=== PATIENT | male | born 1975 | race Caucasian/White ===

== ENCOUNTER 2023-05-24 12:23 | Outpatient (OUT) | payer OTHER, SELFPAY ==
[2023-05-24 12:41] LABS: Hemoglobin 17.6 g/dL (14.0-18.0)
--- NOTE | 2023-05-24 13:16 | RT_ITS ---
[facility] Test Date: 2023-05-24 Pat Name: NATALY WILD Department: Room: - Gender: Male Disc Inspector: Latoya Spencer RRT : 1975 Requested By: Dandy Reich Order Number: [id number] Reading MD: Dandy Reich Interpretive Statements Pulmonary function testing was completed according to ATS criteria. Findings were considered accurate and reproducible. Both pre- and post-bronchodilator values utilized for spirometry. Spirometry (based on pre-bronchodilator values): -FEV1/FVC: Normal @ 74% -FEV1: Mildly reduced @ 77% -FVC: Low normal @ 81% -CNY09-66%: Reduced @ 66% -There is no significant bronchodilator response. Lung volumes by plethysmography: -RV: Increased @ 144% -TLC: Normal @ 103% Diffusion capacity: -DLCO: Normal @ 98% when corrected for Hb 17.6g/dL Flow-volume loop: -Mixed mild restriction with mild obstruction Prior PFT 02/22/2022: -No significant change in spirometry (FEV1 78%, FVC 83%) -RV increased from 93%, little change in TLC from 97% -No significant change in DLCO 94% Impressions: -Technically normal spirometry which trends towards mild-moderate obstruction without a bronchodilator response. Increased RV suggests air trapping. Normal DLCO. Midly increased Hb suggests polycythemia. No real significant change in PFT when compared to last year. Overall study suggests asthma with loss of bronchodilator response or asthma-COPD overlap. Clinical correlation required. Electronically Signed On 05-25-2023 7:03:42 EDT by Dandy Reich
[2023-05-24] MEDS: ALBUTEROL SULFATE 2.5 MG/3 ML VIAL NEB IH (13:46)
== END 2023-05-24 12:24 | disposition home or self-care (01) ==
LOC: CARD 12:26
PROVIDERS: PCP Family Medicine; Visit Provider Internal Medicine
DX: J45.50 Severe persistent asthma, uncomplicated (principal)
CPT/HCPCS: 36415; 85018; 94060; 94726; 94729

== ENCOUNTER 2023-09-13 00:24 | Emergency (ER) | payer OTHER, SELFPAY ==
[2023-09-13 00:55] VITALS: BP 182/120; PULSE 70; TEMP 36.8; O2SAT 96; BMI 33.0
--- NOTE | 2023-09-13 01:06 | ED.EAR1 ---
HPI - Ear Problem General Chief complaint: Ear Stated complaint: R EAR PAIN Time Seen by Provider: 09/13/23 00:50 Source: patient Mode of arrival: walk-in Limitations: no limitations History of Present Illness HPI Narrative: Foot male presents for right ear pain. He has had it for 2 days. No trauma or drainage. He does not complain of a sore throat or left ear pain but he does complain of a tooth ache intermittently in the right upper dentition. The pain is moderate. Related Data Previous Rx's ?Medication ?Instructions ?Recorded [id number] 3.3 4 drp otic (ear) TID #10 mL 09/13/23 mg-3 mg-10 mg-0.5 mg/mL ear drops,susp (Cortisporin-TC) penicillin V potassium 250 mg 250 mg PO QID 10 days #40 tabs 09/13/23 tablet Allergies Allergy/AdvReac Type Severity Reaction Status Date / Time Sulfa (Sulfonamide Allergy Intermediate Hives Verified 09/13/23 01:00 Antibiotics) Review of Systems ROS Narrative A ten point review of systems is negative except as noted above. Exam Narrative Exam Narrative: Nurses note and vital signs reviewed and patient is not hypoxic. General: The patient appears well and in no apparent distress. Patient is resting comfortably on cart. Skin: Warm, dry, no pallor noted. There is no rash noted. Head: Normocephalic, atraumatic Eye: Normal conjunctiva, no drainage Ears, Nose, Mouth, and Throat: oral mucosa is moist. Nares patent. Dental caries is noted in the right upper dentition. Left TM and external canal are normal. The right TM is normal but the right external canal has some erythema and slight swelling. Movement of the auricle causes discomfort. No cervical adenopathy. Cardiovascular: Regular Rate and Rhythm Respiratory: Patient is in no distress, no accessory muscle use, lungs are clear to auscultation, no wheezing, rales or rhonchi Back: non-tender GI: Soft and nontender Musculoskeletal: The patient has no evidence of calf tenderness, no pitting edema, symmetrical pulses noted bilaterally Neurological: A&O, normal speech Psychiatric: Cooperative Constitutional Vital Signs, click to edit/add: Last Vital Signs Temp 98.2 F 09/13/23 00:55 Pulse 70 09/13/23 00:55 Resp 18 09/13/23 00:55 BP 182/120 H 09/13/23 00:55 Pulse Ox 96 09/13/23 00:55 O2 Del Method Room Air 09/13/23 00:55 Course Vital Signs Vital signs: Vital Signs Temperature 98.2 F 09/13/23 00:55 Pulse Rate 70 09/13/23 00:55 Respiratory Rate 18 09/13/23 00:55 Blood Pressure 182/120 H 09/13/23 00:55 Pulse Oximetry 96 09/13/23 00:55 Oxygen Delivery Method Room Air 09/13/23 00:55 Temperature 98.2 F 09/13/23 00:55 Pulse Rate 70 09/13/23 00:55 Respiratory Rate 18 09/13/23 00:55 Blood Pressure 182/120 H 09/13/23 00:55 Pulse Oximetry 96 09/13/23 00:55 Oxygen Delivery Method Room Air 09/13/23 00:55 Medical Decision Making MDM Narrative Medical decision making narrative: My clinical impression is that he has otitis externa. He is placed on Cortisporin for that issue but he is also been having a tooth ache so he is placed on penicillin for that. He was also noted to have an elevated blood pressure but he has not taken his blood pressure medicine in more than a day. He has it at home and he is going to take it when he gets home. Treatment diagnosis and follow-up were discussed with the patient. Differential Diagnosis Differential Diagnosis: Otitis media, otitis externa Discharge Plan Discharge Stand Alone Forms: Portal Instructions Chief Complaint: Ear Clinical Impression: Otitis externa, Odontalgia Patient Disposition: Home, Self-Care Time of Disposition Decision: 01:04 Condition: Good Mode of Transportation: Private Vehicle Prescriptions / Home Meds: New penicillin V potassium 250 mg tablet 250 mg PO QID 10 Days Qty: 40 0RF Cortisporin-TC 3.3-3-10-0.5 mg/mL drops,suspension 4 drp otic (ear) TID Qty: 10 0RF Print Language: Greenlandic Instructions: Swimmer's Ear (ED), Toothache (ED) Referrals: LEEANNE ALEJANDRO [Primary Care Provider] - 1 week
[2023-09-13] MEDS: PENICILLIN V POTASSIUM 250 MG TABLET 500 MG PO (01:12)
[2023-09-13 01:15] VITALS: BP 178/116; PULSE 63; O2SAT 97
== END 2023-09-13 01:15 | disposition home or self-care (01) ==
PROVIDERS: Emergency Provider Emergency Medicine; PCP Family Medicine
DX: H60.91 Unspecified otitis externa, right ear (principal); K08.89 Other specified disorders of teeth and supporting structures
CPT/HCPCS: 99283

== ENCOUNTER 2023-11-03 17:24 | Emergency (ER) | payer OTHER, SELFPAY ==
[2023-11-03] VITALS (29 sets, daily range): BP systolic 146–199; BP diastolic 93–118; PULSE 72–93; TEMP 37; O2SAT 98; BMI 36.2
--- OUTSIDE RECORDS SUMMARY | 2023-11-03 17:34 | XMS_ITS | CCD ---
Author Organization [facility] Care Team Providers Care Network Controller Name Role Phone HILLARY ., DR JOSEPHINE Copeland Primary Care Unavailable SAMSA ., DURGA Admitting Unavailable SAMSA ., DURGA Attending Unavailable SAMSA ., DURGA Consulting Unavailable THORNTON ., DR JOSEPHINE Copeland Primary Care Unavailable HAY ., DR RICE Admitting Unavailable HAY ., DR RICE Attending Unavailable HAY ., DR RICE Consulting Unavailable THORNTON ., DR JOSEPHINE Copeland Primary Care Unavailable SAMSA ., DURGA Admitting Unavailable SAMSA ., DURGA Attending Unavailable SAMSA ., DURGA Consulting Unavailable THORNTON ., DR JOSEPHINE Copeland Admitting Unavailable THORNTON ., DR JOSEPHINE Copeland Attending Unavailable THORNTON ., DR JOSEPHINE Copeland Primary Care Unavailable THORNTON ., DR JOSEPHINE Copeland Admitting Unavailable THORNTON ., DR JOSEPHINE Copeland Attending Unavailable THORNTON ., DR JOSEPHINE Copeland Consulting Unavailable THORNTON ., DR JOSEPHINE Copeland Primary Care Unavailable Akil Reeves. Primary Care Physician Akil Reeves. Attending Unavailable Leandro, Akil E. Attending Unavailable Leandro, Akil E. Attending Unavailable Leandro, Akil E. Attending Unavailable Leandro, Akil E. Admitting Unavailable Ross, Akil E. Attending Unavailable Leandro, Akil E. Admitting Unavailable Ross, Akil E. Attending Unavailable Leandro, Akil E. Admitting Unavailable Ross, Akil E. Admitting Unavailable Ross, Akil E. Attending Unavailable Leandro, Akil E. Admitting Unavailable Ross, Akil E. Attending Unavailable Leandro, Akil E. Attending Unavailable Leandro, Akil E. Attending Unavailable Leandro, Akil E. Attending Unavailable Leandro, Akil E. Attending Unavailable Leandro, Akil E. Attending Unavailable Leandro, Akil E. Attending Unavailable Leandro, Akil E. Attending Unavailable Leandro, Akil E. Attending Unavailable Leandro, Akil E. Attending Unavailable Akil Reeves Attending Unavailable MD Akil Reeves Attending Unavailable MD Akil Reeves Admitting Unavailable MD Akil Reeves Attending Unavailable MD Akil Reeves Admitting Unavailable MD Akil Reeves Attending Unavailable Akil Reeves Attending Unavailable Akil Reeves Admitting Unavailable Chris Iraheta Attending Unavailab Chris Jane Admitting Unavailab Josephine Vicente Primary Care Unavailable Allergies Allergy Classification Reported Allergen(s) Allergy Type Date of Onset Reaction(s) Facility (3 sources) Escitalopram; Translations: [Lexapro] Drug Allergy 7 [facility] Repository (1 source) montelukast Drug Allergy [facility] Repository (2 sources) Sucralfate Drug Allergy 3 [facility] Repository (2 sources) thyrotropin augie Drug Allergy [facility] Repository (5 sources) Escitalopram; Translations: [escitalopram] Drug Allergy Unknown (qualifier value) [facility] Medications Current Medications Medication Drug Class(es) Dates Sig (Normalized) Sig (Original) albuterol 0.83 mg/ml inhalation solution (5 sources) beta2-Adrenergic Agonist Start: 06-25-2022 take 2.5 mg by inhalation every four hours albuterol 0.083% Inh Cecille 3 mL 2.5 mg, 3 mL, NEB, q4hr, Refill(s) 0 Start Date: 06/25/22 Status: Ordered allopurinol 100 mg oral tablet (4 sources) Xanthine Oxidase Inhibitor Start: 08-22-2023 take 1 tablet by mouth twice daily allopurinol 100 mg Tab See Instructions, TAKE ONE TABLET BY MOUTH TWICE A DAY, # 180 tab(s), Refills(s) 0, Pharmacy: [facility], 171.1, cm, 07/14/23 7:18:00 EDT, Height/Length Dosing, 110.5, kg, 07/14/23 7:18:00 EDT, Weight Dosing Start Date: 08/22/23 Status: Ordered Start: 04-26-2023 take 1 tablet by nighat twice daily allopurinol 100 mg Tab See Instructions, TAKE ONE TABLET BY MOUTH TWICE A DAY, # 180 tab(s), Refills(s) 0, Pharmacy: [facility], 171, cm, 02/21/23 6:51:00 EST, Height/Length Dosing, 114.1, kg, 02/21/23 6:51:00 EST, Weight Dosing Start Date: 04/26/23 Status: Ordered Start: 12-23-2022 take 1 tablet by nighat th twice daily allopurinol 100 mg Tab 100 mg = 1 tab(s), Oral, BID, # 180 tab(s), Refills(s) 0, Pharmacy: [facility], 175.5, cm, 12/23/22 7:40:00 EST, Height/Length Dosing, 112.2, kg, 12/23/22 7:40:00 EST, Weight Dosing Start Date: 12/23/22 Status: Ordered amLODIPine 10 mg oral tablet (5 sources) Dihydropyridine Calcium Channel Fredrick Start: 08-22-2023 take 1 tablet by mouth once daily amLODIPine 10 mg Tab 10 mg = 1 tab(s), Oral, Daily, # 30 tab(s), Refills(s) 6, Pharmacy: [facility], 171.1, cm, 07/14/23 7:18:00 EDT, Height/Length Dosing, 110.5, kg, 07/14/23 7:18:00 EDT, Weight Dosing Start Date: 08/22/23 Status: Ordered Start: 01-20-2023 take 1 tablet by nighat th once daily amLODIPine 10 mg Tab See Instructions, TAKE ONE TABLET BY MOUTH ONCE DAILY, # 30 EA, Refills(s) 5, Pharmacy: [facility], 175.3, cm, 01/06/23 7:42:00 EST, Height/Length Dosing, 112.7, kg, 01/06/23 7:42:00 EST, Weight Dosing Start Date: 01/20/23 Status: Ordered Start: 06-25-2022 take 1 tablet by nighat th once daily amLODIPine 10 mg Tab 10 mg = 1 tab(s), Oral, Daily, Refills(s) 0 Start Date: 06/25/22 Status: Ordered aspirin 81 mg delayed release oral tablet (1 source) Platelet Aggregation Inhibitor, Nonsteroidal Anti-inflammatory Drug Start: 06-25-2022 take 1 tablet by mouth once daily aspirin 81 mg Oral EC Tab 81 mg = 1 tab(s), Oral, Daily, Refills(s) 0 Start Date: 06/25/22 Status: Ordered 1 ml benralizumab 30 mg/ml auto-injector (5 sources) Interleukin-5 Receptor alpha-directed Cytolytic Antibody Start: 08-05-2022 Fasenra Pen 30 mg/mL subcutaneous solution 30 mg, SubCutaneous, q4wk, Refills(s) 0 Start Date: 08/05/22 Status: Ordered budesonide 0.25 mg/ml inhalation suspension (3 sources) Corticosteroid Start: 12-23-2022 colchicine 0.6 mg oral tablet (2 sources) Start: 05-18-2023 take 1 tablet by mouth every hour as needed for pain, then take 1 tablet by mouth every hour as needed for pain colchicine 0.6 mg Tab 0.6 mg = 1 tab(s), Oral, q1hr, PRN for gout pain, at the first sign of a gout flare followed by 0.6 mg one hour later, # 3 tab(s), Refills(s) 0, Pharmacy: [facility], 171, cm, 05/18/23 9:36:00 EDT, Height/Length Dosing, 112.9, kg, 05/18/23 9:36:00 EDT, Weight Dosing Start Date: 05/18/23 Status: Ordered Dosokap oral tablet (1 source) Start: 02-21-2023 take 1 tablet by mouth once daily Dosokap oral tablet 1 tab(s), Oral, Daily, 90 tab(s), Refill(s) 0, [facility], 171, cm, 02/21/23 6:51:00 EST, Height/Length Dosing, 114.1, kg, 02/21/23 6:51:00 EST, Weight Dosing Start Date: 02/21/23 Status: Ordered DULoxetine 40 mg delayed release oral capsule (5 sources) Serotonin and Norepinephrine Reuptake Inhibitor Start: 06-25-2022 take 1 capsule by mouth once daily DULoxetine 40 mg oral delayed release capsule 40 mg = 1 cap(s), Oral, Daily, Refills(s) 0 Start Date: 06/25/22 Status: Ordered hydroCHLOROthiazide 25 mg oral tablet (4 sources) Thiazide Diuretic Start: 05-23-2023 take 1 tablet by mouth once daily hydrochlorothiazide 25 mg Tab 25 mg = 1 tab(s), Oral, Daily, # 90 tab(s), Refills(s) 1, Pharmacy: [facility], 171, cm, 05/18/23 9:36:00 EDT, Height/Length Dosing, 112.9, kg, 05/18/23 9:36:00 EDT, Weight Dosing Start Date: 05/23/23 Status: Ordered Start: 11-30-2022 take 1 tablet by nighat once daily hydrochlorothiazide 25 mg Tab 25 mg = 1 tab(s), Oral, Daily, # 90 tab(s), Refills(s) 1, Pharmacy: [facility], 175.5, cm, 09/09/22 8:29:00 EDT, Height/Length Dosing, 113.4, kg, 09/09/22 8:29:00 EDT, Weight Dosing Start Date: 11/30/22 Status: Ordered lamoTRIgine 100 mg oral tablet (5 sources) Mood Stabilizer, Anti-epileptic Agent Start: 08-05-2022 take 1 tablet by mouth once daily at bedtime Lamictal 100 mg Tab 100 mg = 1 tab(s), Oral, Daily, at bedtime, Refills(s) 0 Start Date: 08/05/22 Status: Ordered levothyroxine sodium 0.1 mg oral tablet (2 sources) l-Thyroxine Start: 09-29-2023 take 1 tablet by mouth once daily levothyroxine 100 mcg (0.1 mg) Tab See Instructions, TAKE 1 TABLET BY MOUTH EVERY DAY, # 90 tab(s), Refills(s) 0, Pharmacy: [facility]/pharmacy #[id number], 171.1, cm, 09/29/23 7:04:00 EDT, Height/Length Dosing, 111.2, kg, 09/29/23 7:04:00 EDT, Weight Dosing Start Date: 09/29/23 Status: Ordered Start: 02-21-2023 take 1 tablet by nighat once daily levothyroxine 75 mcg (0.075 mg) Tab 75 mcg = 1 tab(s), Oral, Daily, # 90 tab(s), Refills(s) 0, [facility], 171, cm, 02/21/23 6:51:00 EST, Height/Length Dosing, 114.1, kg, 02/21/23 6:51:00 EST, Weight Dosing Start Date: 02/21/23 Status: Ordered losartan potassium 100 mg oral tablet (5 sources) Angiotensin 2 Receptor Fredrick Start: 04-26-2023 take 1 tablet by mouth once daily losartan 100 mg Tab See Instructions, TAKE ONE TABLET BY MOUTH ONCE DAILY, # 90 tab(s), Refills(s) 1, Pharmacy: [facility], 171, cm, 02/21/23 6:51:00 EST, Height/Length Dosing, 114.1, kg, 02/21/23 6:51:00 EST, Weight Dosing Start Date: 04/26/23 Status: Ordered Start: 12-24-2022 take 1 tablet by nighat th once daily losartan 100 mg Tab See Instructions, TAKE ONE TABLET BY MOUTH ONCE DAILY, # 30 EA, Refills(s) 2, Pharmacy: [facility], 175.5, cm, 12/23/22 7:40:00 EST, Height/Length Dosing, 112.2, kg, 12/23/22 7:40:00 EST, Weight Dosing Start Date: 12/24/22 Status: Ordered Start: 08-05-2022 take 1 tablet by nighat once daily losartan 100 mg Tab 100 mg = 1 tab(s), Oral, Daily, # 90 tab(s), Refills(s) 0, Pharmacy: [facility], 175.3, cm, 08/05/22 8:09:00 EDT, Height/Length Dosing, 110.9, kg, 08/05/22 8:09:00 EDT, Weight Dosing Start Date: 08/05/22 Status: Ordered 24 hr metoprolol succinate 25 mg extended release oral tablet (4 sources) beta-Adrenergic Fredrick Start: 06-13-2023 take 1 tablet by mouth once daily metoprolol 25 mg ER Tab 25 mg = 1 tab(s), Oral, Daily, # 90 tab(s), Refills(s) 4, Pharmacy: [facility], 171, cm, 05/18/23 9:36:00 EDT, Height/Length Dosing, 112.9, kg, 05/18/23 9:36:00 EDT, Weight Dosing Start Date: 06/13/23 Status: Ordered Start: 12-23-2022 take 1 tablet by [facility] once daily metoprolol 25 mg ER Tab 25 mg = 1 tab(s), Oral, Daily, # 90 tab(s), Refills(s) 0, Pharmacy: [facility], 175.5, cm, 12/23/22 7:40:00 EST, Height/Length Dosing, 112.2, kg, 12/23/22 7:40:00 EST, Weight Dosing Start Date: 12/23/22 Status: Ordered omeprazole 40 mg delayed release oral capsule (5 sources) Proton Pump Inhibitor Start: 05-23-2023 take 1 capsule by mouth once daily omeprazole 40 mg Cap-DR See Instructions, TAKE ONE CAPSULE BY MOUTH ONCE DAILY, # 90 EA, Refills(s) 1, Pharmacy: [facility], 171, cm, 05/18/23 9:36:00 EDT, Height/Length Dosing, 112.9, kg, 05/18/23 9:36:00 EDT, Weight Dosing Start Date: 05/23/23 Status: Ordered Start: 11-30-2022 take 1 capsule by [facility] once daily omeprazole 40 mg Cap-DR See Instructions, TAKE ONE CAPSULE BY MOUTH ONCE DAILY, # 90 EA, Refills(s) 1, Pharmacy: [facility], 175.5, cm, 09/09/22 8:29:00 EDT, Height/Length Dosing, 113.4, kg, 09/09/22 8:29:00 EDT, Weight Dosing Start Date: 11/30/22 Status: Ordered Start: 08-05-2022 take 1 capsule by [facility] once daily omeprazole 40 mg Cap-DR 40 mg = 1 cap(s), Oral, Daily, # 30 cap(s), Refills(s) 0, Pharmacy: [facility], 175.3, cm, 08/05/22 8:09:00 EDT, Height/Length Dosing, 110.9, kg, 08/05/22 8:09:00 EDT, Weight Dosing Start Date: 08/05/22 Status: Ordered Symbicort 160/4.5 inhalation aerosol with adapter (5 sources) Start: 08-05-2022 take 2 puff(s) by mouth twice daily Symbicort 160/4.5 inhalation aerosol with adapter 2 puff(s), Inhalation, BID, Refill(s) 0, rinse mouth after use Start Date: 08/05/22 Status: Ordered Syringes (4 sources) Start: 08-12-2023 Syringes Syrin ges, See Instructions, 3 EA, 3, 3ml syringes 23g x 1 inch needles use with testosterone IM injections q4wk, [facility]/pharmacy #[id number], Supply, 171.1, cm, 07/14/23 7:18:00 EDT, Height/Length Dosing, 110.5, kg, 07/14/23 7:18:00 EDT, Weight Dosing Start Date: 08/12/23 Status: Ordered Start: 06-30-2023 Syringes Syrin ges, See Instructions, 3 EA, 3, 3ml syringes 23g x 1 inch needles use with testosterone IM injections q4wk, [facility]/pharmacy #[id number], Supply, 171, cm, 05/18/23 9:36:00 EDT, Height/Length Dosing, 112.9, kg, 05/18/23 9:36:00 EDT, Weight Dosing Start Date: 06/30/23 Status: Ordered Start: 09-13-2022 Syringes Syrin ges, See Instructions, 3 EA, 3, 3ml syringes 23g x 1 inch needles use with testosterone IM injections q4wk, [facility], Supply, 175.5, cm, 09/09/22 8:29:00 EDT, Height/Length Dosing, 113.4, kg, 09/09/22 8:29:00 EDT, Weight Dosing Start Date: 09/13/22 Status: Ordered testosterone cypionate 200 mg/mL IM Cecille (5 sources) Start: 08-16-2023 inject 200 mg by intramuscular injection every other week testosterone cypionate 200 mg/mL IM Cecille 200 mg = 1 mL, IntraMuscular, q2wk, # 3 mL, Refills(s) 0, [id number], 171.1, cm, 07/14/23 7:18:00 EDT, Height/Length Dosing, 110.5, kg, 07/14/23 7:18:00 EDT, Weight Dosing Start Date: 08/16/23 Status: Ordered Start: 08-12-2023 inject 200 mg by int ramuscular injection every other week testosterone cypionate 200 mg/mL IM Cecille 200 mg = 1 mL, IntraMuscular, q2wk, # 3 mL, Refills(s) 0, Pharmacy: [facility]/pharmacy #[id number], 171.1, cm, 07/14/23 7:18:00 EDT, Height/Length Dosing, 110.5, kg, 07/14/23 7:18:00 EDT, Weight Dosing Start Date: 08/12/23 Status: Ordered Start: 06-30-2023 inject 200 mg by int ramuscular injection every other week testosterone cypionate 200 mg/mL IM Cecille 200 mg = 1 mL, IntraMuscular, q2wk, # 3 mL, Refills(s) 0, Pharmacy: [facility]/pharmacy #[id number], 171, cm, 05/18/23 9:36:00 EDT, Height/Length Dosing, 112.9, kg, 05/18/23 9:36:00 EDT, Weight Dosing Start Date: 06/30/23 Status: Ordered Start: 02-10-2023 inject 200 mg by int ramuscular injection every other week testosterone cypionate 200 mg/mL IM Cecille 200 mg = 1 mL, IntraMuscular, q2wk, # 3 mL, Refills(s) 0, Pharmacy: [facility], 175, cm, 02/10/23 7:36:00 EST, Height/Length Dosing, 112.9, kg, 02/10/23 7:36:00 EST, Weight Dosing Start Date: 02/10/23 Status: Ordered 60 actuat tiotropium 0.94562 mg/actuat inhalation spray (5 sources) Anticholinergic Start: 08-05-2022 Spiriva Respim at 1.25 mcg/inh inhalation aerosol 2 puff(s), Inhalation, Daily, Refill(s) 0 Start Date: 08/05/22 Status: Ordered topiramate 100 mg oral tablet (5 sources) Start: 06-25-2022 take 1 tablet by mouth at bedtime topiramate 100 mg Tab 100 mg = 1 tab(s), Oral, Bedtime, Refills(s) 0 Start Date: 06/25/22 Status: Ordered Ventolin HFA 90 mcg/inh Aerosol-Adpt (5 sources) Start: 06-25-2022 take 2 puff(s) by inhalation every four hours Ventolin HFA 90 mcg/inh Aerosol-Adpt 2 puff(s), Inhalation, q4hr, Refill(s) 0 Start Date: 06/25/22 Status: Ordered Problems Active Problems Problem Classification Problem Date Documented Date Episodic/Chronic Asthma (10 sources) Unspecified asthma, uncomplicated; Translations: [Severe persistent asthma, uncomplicated] Onset: 02-22-2022 Chronic Diabetes mellitus without complication (4 sources) Hyperglycemia 12-23-2022 Episodic Diseases of white blood cells (2 sources) Hereditary eosinophilia 05-23-2023 Chronic Disorders of lipid metabolism (5 sources) Mixed hyperlipidemia 08-05-2022 Chronic Esophageal disorders (16 sources) Gastro-esophageal reflux disease without esophagitis; Translations: [Rich's esophagus] Onset: 03-17-2022 06-25-2022 Chronic Essential hypertension (8 sources) Essential (primary) hypertension; Translations: [Essential hypertension] Onset: 03-17-2022 08-05-2022 Chronic Gout and other crystal arthropathies (6 sources) Gout, unspecified; Translations: [Gout] Onset: 03-17-2022 08-05-2022 Chronic Headache; including migraine (5 sources) Migraine without aura, not refractory 08-05-2022 Chronic Hepatitis (5 sources) Nonalcoholic steatohepatitis 06-25-2022 Chronic Mood disorders (5 sources) Bipolar I disorder 08-05-2022 Chronic Mood disorders (1 source) Mood disorders; Translations: [DEPRESSION UNSPECIFIED] Onset: 03-17-2022 Nutritional deficiencies (5 sources) Vitamin D deficiency 06-25-2022 Chronic Osteoarthritis (5 sources) Arthritis 06-25-2022 Chronic Other endocrine disorders (5 sources) Male hypogonadism 06-25-2022 Chronic Other liver diseases (4 sources) Enzyme level - finding 12-23-2022 Episodic Other nutritional; endocrine; and metabolic disorders (1 source) Obesity, unspecified; Translations: [OBESITY UNSPECIFIED] Onset: 02-23-2022 Chronic Other nutritional; endocrine; and metabolic disorders (1 source) Body mass index (BMI) 33.0-33.9, adult; Translations: [BODY MASS INDEX BMI 33.0-33.9 ADULT] Onset: 02-23-2022 Chronic Other skin disorders (1 source) Skin tag 09-29-2023 Episodic Other upper respiratory disease (5 sources) Allergic rhinitis 06-25-2022 Chronic Residual codes; unclassified (4 sources) Obstructive sleep apnea (adult) (pediatric); Translations: [OBSTRUCTIVE SLEEP APNEA] Onset: 02-17-2022 Chronic Residual codes; unclassified (5 sources) Obstructive sleep apnea syndrome 06-25-2022 Chronic Thyroid disorders (8 sources) Hypothyroidism, unspecified; Translations: [Hypothyroidism] Onset: 03-17-2022 08-05-2022 Chronic Unclassified (1 source) EOSINOPHILIA UNSPECIFIED; Translations: [EOSINOPHILIA UNSPECIFIED] Onset: 02-27-2022 Unclassified (2 sources) CONTACT W/AND (SUSP) EXPOS COVID-19; Translations: [CONTACT W/AND (SUSP) EXPOS COVID-19] Onset: 10-29-2021 Unclassified (2 sources) Long-term current use of inhaled steroid 05-23-2023 Viral infection (1 source) COVID-19; Translations: [COVID-19] Onset: 10-29-2021 Past or Other Problems Problem Classification Problem Date Documented Da te Episodic/Chronic Menopausal disorders (1 source) Hormone replacement therapy; Translations: [HORMONE REPLACEMENT THERAPY] Onset: 03-17-2022 Episodic Other aftercare (1 source) Other mcc (current) drug therapy; Translations: [OTH PULLER OUT CURRENT DRUG THERAPY] Onset: 03-17-2022 Episodic Other aftercare (1 source) 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; Translations: [PENITENTIARY CURRENT USE OF ASPIRIN] Onset: 03-17-2022 Episodic Other connective tissue disease (3 sources) Pain in right foot; Translations: [PAIN IN RIGHT FOOT] Onset: 03-15-2022 Episodic Screening and history of mental health and substance abuse codes (1 source) Personal history of nicotine dependence; Translations: [PERSONAL HISTORY OF NICOTINE DEPEND] Onset: 03-17-2022 Episodic Unclassified (1 source) CONTACT W/AND (SUSP) EXPOS COVID-19; Translations: [CONTACT W/AND (SUSP) EXPOS COVID-19] Onset: 10-28-2021 Results Test Name Value Interpretation Reference Range Facil ity Ambulatory Visit Summaryon 0 09-29-2023 Ambulatory Visit Summary Ambulatory Visit Summary NATALY WILD :1975 Visit Date:09/29/2023 Ambulatory Visit Instructions Your Diagnosis HTN (hypertension) Hypothyroidism BMI 37.0-37.9, adult Class 1 obesity due to excess calories in adult Former smoker Gout Skin tag Your Care Team Attending Physician - Akil Reeves MD Primary Care Physician - Akil Reeves MD This Is Your Medications List levothyroxine (levothyroxine 100 mcg (0.1 mg) Tab) Contact prescribing physician if questions or concerns Misc Prescription (Syringes) albuterol (Ventolin HFA 90 mcg/inh Aerosol-Adpt) albuterol (albuterol 0.083% Inh Cecille 3 mL) allopurinol (allopurinol 100 mg Tab) amlodipine (amLODIPine 10 mg Tab) benralizumab (Fasenra Pen 30 mg/mL subcutaneous solution) budesonide-formotero l (Symbicort 160/4.5 inhalation aerosol with adapter) colchicine (colchicine 0.6 mg Tab) duloxetine (DULoxetine 40 mg oral delayed release capsule) hydrochlorothiazide (hydrochlorothiazide 25 mg Tab) lamotrigine (Lamictal 100 mg Tab) losartan (losartan 100 mg Tab) metoprolol (metoprolol 25 mg ER Tab) omeprazole (omeprazole 40 mg Cap-DR) testosterone (testosterone cypionate 200 mg/mL IM Cecille) testosterone (testosterone cypionate 200 mg/mL IM Cecille) tiotropium (Spiriva Respimat 1.25 mcg/inh inhalation aerosol) topiramate (topiramate 100 mg Tab) Procedures Performed Colonoscopy, EGD (esophagogastroduode noscopy) and closure of duodenal fistula. Discharge Vitals Temperature (Temporal Artery) 36.7 ?C Heart Rate (Peripheral) 76 Respiratory Rate 20 Blood Pressure 132/86 Height 171.1 cm Height 67 in Weight 111.2 kg Weight 244.64 lb BMI 37.98 Medications What How Much When Why Instructions Unchanged levothyroxine (levothyroxine 100 mcg (0.1 mg) Tab) See instructions TAKE 1 TABLET BY MOUTH EVERY DAY Pickup at [facility]/pharmacy #[id number] Unchanged albuterol (albuterol 0.083% Inh Cecille 3 mL) 3 Milliliter Nebulized inhalation (aerosol) Every 4 hours Contact prescribing physician if questions or concerns Unchanged albuterol (Ventolin HFA 90 mcg/ inh Aerosol-Adpt) 2 Puffs Inhalation Every 4 hours Contact prescribing physician if questions or concerns Unchanged allopurinol (allopurinol 100 mg Tab) See instructions TAKE ONE TABLET BY MOUTH TWICE A DAY Contact prescribing physician if questions or concerns Unchanged amlodipine (amLODIPine 10 mg Tab) 1 Tablets By Mouth Every day Contact prescribing physician if questions or concerns Unchanged benralizumab (Fasenra Pen 30 mg/ mL subcutaneous solution) 30 Milligram Subcutaneous Every 4 weeks Contact prescribing physician if questions or concerns Unchanged budesonide-formotero l (Symbicort 160/ 4.5 inhalation aerosol with adapter) 2 Puffs Inhalation 2 times a day rinse mouth after use Contact prescribing physician if questions or concerns Unchanged colchicine (colchicine 0.6 mg Tab) 1 Tablets By Mouth Every hour as needed for for gout pain Vitamin D deficiency HTN (hypertension) BMI 38.0-38.9,adult Class 1 obesity due to excess calories in adult Former smoker Hypogonadism in male Hypothyroidism Hyperglycemia Mixed hyperlipidemia Gout at the first sign of a gout flare followed by 0.6 mg one hour later Contact prescribing physician if questions or concerns Unchanged duloxetine (DULoxetine 40 mg oral delayed release capsule) 1 Capsules By Mouth Every day Contact prescribing physician if questions or concerns Unchanged hydrochlorothiazide (hydrochlorothiazide 25 mg Tab) 1 Tablets By Mouth Every day Contact prescribing physician if questions or concerns Unchanged lamotrigine (Lamictal 100 mg Tab) 1 Tablets By Mouth Every day at bedtime Contact prescribing physician if questions or concerns Unchanged losartan (losartan 100 mg Tab) See instructions TAKE ONE TABLET BY MOUTH ONCE DAILY Contact prescribing physician if questions or concerns Unchanged metoprolol (metoprolol 25 mg ER Tab) 1 Tablets By Mouth Every day Contact prescribing physician if questions or concerns Unchanged Misc Prescription (Syringes) See instructions 3ml syringes 23g x 1 inch needles use with testosterone IM injections q4wk Contact prescribing physician if questions or concerns Unchanged omeprazole (omeprazole 40 mg Cap-DR) See instructions TAKE ONE CAPSULE BY MOUTH ONCE DAILY Contact prescribing physician if questions or concerns Unchanged testosterone (testosterone cypionate 200 mg/ mL IM Cecille) 1 Milliliter Intramuscular Every other week Contact prescribing physician if questions or concerns Unchanged testosterone (testosterone cypionate 200 mg/ mL IM Cecille) 1 Milliliter Intramuscular Every other week Contact prescribing physician if questions or concerns Unchanged tiotropium (Spiriva Respimat 1.25 mcg/ inh inhalation aerosol) 2 Puffs Inhalation Every day Contact prescribing physician if questions or concerns Unchanged topiramate (topiramate 100 mg Tab) 1 Tablets By Mouth At bedtime Contact prescribing (more content not included)... Normal [facility] CHEMISTRYOrdered By: SYSTEM SYSTEM on 09-29-2023 TSH Qn 4.37 m[IU]/L Normal 0.34 - 5.60 mcIU/mL Rem isol Chem Family Medicine Office/Clini c Noteon 09-29-2023 Family Medicine Office/Clinic Note Family Medicine Office/Clinic Note HPI Staff Nataly is a 48 year old male presenting for 2 month follow up hypothyroidism BRENT increased meds to help with symptoms Patient is here for follow up on Thyroid Disease. Do you have any of the following symptoms? Change in energy level? no Weight change? no Heat/cold intolerance? no Hair/skin/nail changes? no Change in bowels? no Last TSH: TSH: 9.82 mcIU/mL High (07/07/23 07:50:00) questions/concerns: check spot on back of head been there for over a year and never remembers to have it looked at. doesn't bleed or seep Would like his colchicine refilled, never got last time, needed a PA and never heard if approved and that he could get it picked up History of Present Illness - See staff HPI. Review of Systems PHQ Score Initial Depression Screen Score: 0 SCORE Physical Exam Vitals & Measurements T: 36.7 ?C(Temporal Artery) HR: 76(Peripheral) RR: 20 BP: 132/86 SpO2: 96% HT: 67 in HT: 171.1 cm WT: 111.2 kg WT: 244.64 lb BMI: 37.98 General: alert, no acute distress, Skin tag noted on the back of the head. ENMT: oral mucosa moist, Cardiovascular: normal peripheral perfusion Respiratory: respirations non labored Extremities: no deformity, no trauma Neurological: oriented x 4, LOC appropriate for age, CN II-XII intact, motor strength equal & normal bilaterally, speech normal Abdomen: Soft, Nontender, Non-distended, + BS Assessment/Plan 1. HTN (hypertension) (I10: Essential (primary) hypertension) - At goal at this time. - Follow up at next visit. 2. Hypothyroidism (E03.9: Hypothyroidism, unspecified) - No symptom improvement. - Will check TSH today. - Will adjust meds as needed. Ordered: multivitamin, 1 tab(s), Oral, Daily, 90 tab(s), Refill(s) 0, [facility], 171, cm, 02/21/23 6:51:00 EST, Height/Length Dosing, 114.1, kg, 02/21/23 6:51:00 EST, Weight Dosing Body Mass Index (BMI) documented 3008F Current tobacco non-user 1036F Depression Screening Negative 3352F Lab Specimen Collect [id number] Most recent diastolic blood pressure 80-89 mm Hg 3079F Systolic BP 130-139 mm Hg (Most Recent) 3075F TSH With T4fr Reflex 3. BMI 37.0-37.9, adult (Z68.37: Body mass index [BMI] 37.0-37.9, adult) - BMI education added. Ordered: Body Mass Index (BMI) documented 3008F Current tobacco non-user 1036F Depression Screening Negative 3352F Lab Specimen Collect [id number] Most recent diastolic blood pressure 80-89 mm Hg 3079F Systolic BP 130-139 mm Hg (Most Recent) 3075F TSH With T4fr Reflex 4. Class 1 obesity due to excess calories in adult (E66.09: Other obesity due to excess calories) - Diet and exercise advised. Ordered: multivitamin, 1 tab(s), Oral, Daily, 90 tab(s), Refill(s) 0, [facility], 171, cm, 02/21/23 6:51:00 EST, Height/Length Dosing, 114.1, kg, 02/21/23 6:51:00 EST, Weight Dosing Body Mass Index (BMI) documented 3008F Current tobacco non-user 1036F Depression Screening Negative 3352F Lab Specimen Collect [id number] Most recent diastolic blood pressure 80-89 mm Hg 3079F Systolic BP 130-139 mm Hg (Most Recent) 3075F TSH With T4fr Reflex 5. Former smoker (Z87.891: Personal history of nicotine dependence) - Please continue to not smoke Ordered: multivitamin, 1 tab(s), Oral, Daily, 90 tab(s), Refill(s) 0, [facility], 171, cm, 02/21/23 6:51:00 EST, Height/Length Dosing, 114.1, kg, 02/21/23 6:51:00 EST, Weight Dosing Body Mass Index (BMI) documented 3008F Current tobacco non-user 1036F Depression Screening Negative 3352F Lab Specimen Collect [id number] Most recent diastolic blood pressure 80-89 mm Hg 3079F Systolic BP 130-139 mm Hg (Most Recent) 3075F TSH With T4fr Reflex 6. Gout (M10.9: Gout, unspecified) - Will refill today 7. Skin tag (L91.8: Other hypertrophic disorders of the skin) - Will continue to move forward with OTC meds at this time. - Will send to derm if no resolution. Orders: levothyroxine, See Instructions, TAKE 1 TABLET BY MOUTH EVERY DAY, # 90 tab(s), Refills(s) 0, Pharmacy: [facility]/pharmacy #[id number], 171.1, cm, 09/29/23 7:04:00 EDT, Height/Length Dosing, 111.2, kg, 09/29/23 7:04:00 EDT, Weight Dosing Follow-up No qualifying data available Patient Education BMI for Adults Problem List/Past Medical History Ongoing Allergic rhinitis Arthritis Barretts esophagus Bipolar 1 disorder Gastroesophageal reflux disease without esophagitis Gout Hereditary eosinophilia HTN (hypertension) Hyperglycemia Hypogonadism in male Hypothyroidism Long-term current use of inhaled steroid Migraine without aura and without status migrainosus, not intractable Mild persistent asthma with status asthmaticus Mixed hyperlipidemia MORROW (nonalcoholic steatohepatitis) Obstructive sleep apnea Schatzki's ring Skin tag Transaminitis Vitamin D deficiency Historical No qualifying data Procedure/Surgical History Colonoscopy, EGD (esophagogastroduode noscopy) and cl (more content not included)... Normal [facility] Comment on above: Result Comment: Elec tronically Signed By: Leandro RENDON, Akil Koo\.br\Date and Time Signed: 09/29/23 07:39 EDT TSH With T4fr Reflexon 09-28 TSH Qn 4.37 m[IU]/L Normal 0.34-5.60 [facility] Comment on above: Performed By: #### 1 [id number] #### [facility] [address] [place] [address] Family Medicine Office/Clini c Noteon 07-14-2023 Family Medicine Office/Clinic Note HPI Staff Nataly is a 48 year old male presenting for 2 month follow up htn Needs to review labs Patient is here for follow up on hypertension. How often are you checking your blood pressure? Doesnt check BP at home What are your average readings? N/A, Not checking at home Yearly BMP: 12/27/22 questions/concerns: none History of Present Illness Pt here for follow up. - No issues today. - Reviewed labs - Thyroid levels are off. - Takes his meds regularly on an empty stomach. - Feels tired and sluggish. Physical Exam Vitals & Measurements T: 36.6 ?C(Oral) HR: 66(Peripheral) RR: 20 BP: 144/86 SpO2: 97% HT: 67 in HT: 171.10 cm WT: 110.5 kg WT: 243.1 lb BMI: 37.75 General: alert, no acute distress ENMT: oral mucosa moist, Cardiovascular: normal peripheral perfusion Respiratory: respirations non labored Extremities: no deformity, no trauma Neurological: oriented x 4, LOC appropriate for age, CN II-XII intact, motor strength equal & normal bilaterally, speech normal Assessment/Plan 1. HTN (hypertension) (I10: Essential (primary) hypertension) - Elevated today. - Will repeat Ordered: Body Mass Index (BMI) documented 3008F Current tobacco non-user 1036F Most recent diastolic blood pressure 80-89 mm Hg 3079F Most recent systolic blood pressure >= 140 mm Hg 3077F 2. Hyperglycemia (R73.9: Hyperglycemia, unspecified) - Labs look good. - Continue to monitor - Use diet and exercise to help 3. Bipolar 1 disorder (F31.9: Bipolar disorder, unspecified) - Stable - Continue meds as before - No other issues. 4. Hypothyroidism (E03.9: Hypothyroidism, unspecified) - Will increase meds today to help with symptoms. - Recheck in 2 months. 5. BMI 37.0-37.9, adult (Z68.37: Body mass index [BMI] 37.0-37.9, adult) - BMI education given Ordered: Body Mass Index (BMI) documented 3008F Current tobacco non-user 1036F Most recent diastolic blood pressure 80-89 mm Hg 3079F Most recent systolic blood pressure >= 140 mm Hg 3077F 6. Class 1 obesity due to excess calories in adult (E66.09: Other obesity due to excess calories) - Diet and exercise advised Ordered: Body Mass Index (BMI) documented 3008F Current tobacco non-user 1036F Most recent diastolic blood pressure 80-89 mm Hg 3079F Most recent systolic blood pressure >= 140 mm Hg 3077F 7. Former smoker (Z87.891: Personal history of nicotine dependence) - Please continue to not smoke. Ordered: Body Mass Index (BMI) documented 3008F Current tobacco non-user 1036F Most recent diastolic blood pressure 80-89 mm Hg 3079F Most recent systolic blood pressure >= 140 mm Hg 3077F Orders: levothyroxine, 100 mcg = 1 tab(s), Oral, Daily, # 90 tab(s), Refills(s) 0, Pharmacy: [facility]/pharmacy #[id number], 171.1, cm, 07/14/23 7:18:00 EDT, Height/Length Dosing, 110.5, kg, 07/14/23 7:18:00 EDT, Weight Dosing Follow-up No qualifying data available Patient Education BMI for Adults Problem List/Past Medical History Ongoing Allergic rhinitis Arthritis Barretts esophagus Bipolar 1 disorder Gastroesophageal reflux disease without esophagitis Gout Hereditary eosinophilia HTN (hypertension) Hyperglycemia Hypogonadism in male Hypothyroidism Long-term current use of inhaled steroid Migraine without aura and without status migrainosus, not intractable Mild persistent asthma with status asthmaticus Mixed hyperlipidemia MORROW (nonalcoholic steatohepatitis) Obstructive sleep apnea Schatzki's ring Transaminitis Vitamin D deficiency Historical No qualifying data Procedure/Surgical History Colonoscopy, EGD (esophagogastroduode noscopy) and closure of duodenal fistula. Medications albuterol 0.083% Inh Cecille 3 mL, 2.5 mg= 3 mL, NEB, q4hr allopurinol 100 mg Tab, See Instructions amLODIPine 10 mg Tab, See Instructions colchicine 0.6 mg Tab, 0.6 mg= 1 tab(s), Oral, q1hr, PRN Dosokap oral tablet, 1 tab(s), Oral, Daily DULoxetine 40 mg oral delayed release capsule, 40 mg= 1 cap(s), Oral, Daily Fasenra Pen 30 mg/mL subcutaneous solution, 30 mg, SubCutaneous, q4wk hydrochlorothiazide 25 mg Tab, 25 mg= 1 tab(s), Oral, Daily, 1 refills Lamictal 100 mg Tab, 100 mg= 1 tab(s), Oral, Daily levothyroxine 100 mcg (0.1 mg) Tab, 100 mcg= 1 tab(s), Oral, Daily losartan 100 mg Tab, See Instructions, 1 refills metoprolol 25 mg ER Tab, 25 mg= 1 tab(s), Oral, Daily, 4 refills omeprazole 40 mg Cap-DR, See Instructions, 1 refills Spiriva Respimat 1.25 mcg/inh inhalation aerosol, 2 puff(s), Inhalation, Daily Symbicort 160/4.5 inhalation aerosol with adapter, 2 puff(s), Inhalation, BID Syringes, See Instructions, 3 refills testosterone cypionate 200 mg/mL IM Cecille, 200 mg= 1 mL, IntraMuscular, q2wk topiramate 100 mg Tab, 100 mg= 1 tab(s), Oral, Bedtime Ventolin HFA 90 mcg/inh Aerosol-Adpt, 2 puff(s), Inhalation, q4hr Allergies Lexapro (Unknown) Social History Tobacco Former smoker, quit more than 30 days ago Tobacco (more content not included)... Normal [facility] Comment on above: Result Comment: Elec tronically Signed By: Leandro RENDON, Akil Koo\.br\Date and Time Signed: 07/14/23 07:36 EDT Patient Educationon 07-14-19 Patient Education Nutrition BMI for Adults What is BMI? Body mass index (BMI) is a number that is calculated from a person's weight and height. BMI can help estimate how much of a person's weight is composed of fat. BMI does not measure body fat directly. Rather, it is an alternative to procedures that directly measure body fat, which can be difficult and expensive. BMI can help identify people who may be at higher risk for certain medical problems. What are BMI measurements used for? BMI is used as a screening tool to identify possible weight problems. It helps determine whether a person is obese, overweight, a healthy weight, or underweight. BMI is useful for: ? Identifying a weight problem that may be related to a medical condition or may increase the risk for medical problems. ? Promoting changes, such as changes in diet and exercise, to help reach a healthy weight. BMI screening can be repeated to see if these changes are working. How is BMI calculated? BMI involves measuring your weight in relation to your height. Both height and weight are measured, and the BMI is calculated from those numbers. This can be done either in [place] or metric measurements. Note that charts and online BMI calculators are available to help you find your BMI quickly and easily without having to do these calculations yourself. To calculate your BMI in [place] measurements: 1. Measure your weight in pounds (lb). 2. Multiply the number of pounds by 703. ? For example, for a person who weighs 180 lb, multiply that number by 703, which equals 126,540. 3. Measure your height in inches. Then multiply that number by itself to get a measurement called inches squared. ? For example, for a person who is 70 inches tall, the inches squared measurement is 70 inches x 70 inches, which equals 4,900 inches squared. 4. Divide the total from step 2 (number of lb x 703) by the total from step 3 (inches squared): 126,540 ? 4,900 = 25.8. This is your BMI. To calculate your BMI in metric measurements: 1. Measure your weight in kilograms (kg). 2. Measure your height in meters (m). Then multiply that number by itself to get a measurement called meters squared. ? For example, for a person who is 1.75 m tall, the meters squared measurement is 1.75 m x 1.75 m, which is equal to 3.1 meters squared. 3. Divide the number of kilograms (your weight) by the meters squared number. In this example: 70 ? 3.1 = 22.6. This is your BMI. What do the results mean? BMI charts are used to identify whether you are underweight, normal weight, overweight, or obese. The following guidelines will be used: ? Underweight: BMI less than 18.5. ? Normal weight: BMI between 18.5 and 24.9. ? Overweight: BMI between 25 and 29.9. ? Obese: BMI of 30 or above. Keep these notes in mind: ? Weight includes both fat and muscle, so someone with a muscular build, such as an athlete, may have a BMI that is higher than 24.9. In cases like these, BMI is not an accurate measure of body fat. ? To determine if excess body fat is the cause of a BMI of 25 or higher, further assessments may need to be done by a health care provider. ? BMI is usually interpreted in the same way for men and women. Where to find more information For more information about BMI, including tools to quickly calculate your BMI, go to these websites: ? Centers for Disease Control and Prevention: www.cdc.gov ? [place] [employer]: www.heart.org ? National Heart, Lung, and Blood [employer]: www.nhlbi.nih.gov Summary ? Body mass index (BMI) is a number that is calculated from a person's weight and height. ? BMI may help estimate how much of a person's weight is composed of fat. BMI can help identify those who may be at higher risk for certain medical problems. ? BMI can be measured using [place] measurements or metric measurements. ? BMI charts are used to identify whether you are underweight, normal weight, overweight, or obese. This information is not intended to replace advice given to you by your health care provider. Make sure you discuss any questions you have with your health care provider. Document Revised: 10/17/2019 Document Reviewed: 08/24/2019 [employer] Patient Education ? 2022 [employer]. Normal [facility] CHEMISTRYOrdered By: SYSTEM SYSTEM on 07-07-2023 Albumin [Mass/Vol] 4.4 g/dL Normal 3.3 - 5.0 gm/dL R emisol Chem Albumin/Globulin [Mass ratio] 1.4 {ratio} Normal 1.1 - 2.2 Rem[facility] ALP [Catalytic activity/Vol] 74 [iU]/d Normal 21 - 98 Int._Unit/L [facility] ALT No additional P-5'-P [Catalytic activity/Vol] 35 [iU]/d Normal 6 - 46 Int._Unit/L [facility] Anion gap [Moles/Vol] 12 mmol/L Normal 6 - 16 mEq/L [facility] AST [Catalytic activity/Vol] 36 [iU]/d Normal 5 - 43 Int._Unit/L [facility] Bilirubin [Mass/Vol] 0.9 mg/dL Normal 0.0 - 1.1 mg/dL [facility] Calcium [Mass/Vol] 9.1 mg/dL Normal 8.9 - 11.1 mg/dL [facility] Chloride [Moles/Vol] 99 mmol/L Low 101 - 111 mmol/L [facility] Cholesterol [Mass/Vol] 187 mg/dL Normal 120 - 200 mg/dL [facility] Cholesterol in HDL [Mass/Vol] 30 mg/dL Invalid Interpretation Code [facility] Comment on above: Result Comment: '>= 60 LOW RISK' '<= 40 HIGH RISK' Cholesterol in LDL [Mass/Vol] 119 mg/dL Normal <=129mg/dL [facility] Cholesterol in VLDL [Mass/Vol] 60 mg/dL High 7 - 40 mg/dL [facility] CO2 [Moles/Vol] 31 mmol/L Normal 21 - 31 mmol/L Remis ol Chem Creatinine [Mass/Vol] 1.2 mg/dL Normal 0.5 - 1.3 mg/dL [facility] eGFR 74 mL/min/1.73 m2 Normal >=59mL/min/1.73 m2 [facility] Free T4 [Mass/Vol] 0.72 ng/dL Normal 0.58 - 1.64 ng/dL [facility] Globulin (S) [Mass/Vol] 3.2 g/dL Normal 1.4 - 4.0 gm/dL [facility] Glucose [Mass/Vol] 101 mg/dL Normal 55 - 199 mg/dL Re misol Chem Potassium [Moles/Vol] 3.6 mmol/L Normal 3.5 - 5.3 mmol/L [facility] Chem Protein [Mass/Vol] 7.6 g/dL Normal 6.0 - 7.8 gm/dL R emisol Chem Sodium [Moles/Vol] 138 mmol/L Normal 135 - 145 mmol/L [facility] Triglyceride [Mass/Vol] 299 mg/dL High <=149mg/dL Rem[facility] TSH Qn 9.82 m[IU]/L High 0.34 - 5.60 mcIU/mL Rem isol Chem Urea nitrogen [Mass/Vol] 8 mg/dL Normal 5 - 21 mg/dL Rem[facility] Urea nitrogen/Creatinine [Mass ratio] 7 mg/mg Low 10 - 20 [facility] CHEMISTRYOrdered By: Marianne Feliciano on 07-07-2023 HbA1c (Bld) [Mass fraction] 5.7 % Normal <=5.9% [facility] CMPon 07-07-2023 Albumin [Mass/Vol] 4.4 g/dL Normal 3.3-5.0 [facility] Comment on above: Performed By: #### 2 [id number] #### [facility] [address] [place] [address] Albumin/Globulin (S) [Mass conc ratio] 1.4 Normal 1.1-2.2 [facility] Comment on above: Performed By: #### 2 [id number] #### [facility] [address] [place] [address] ALP [Catalytic activity/Vol] 74 Int._Unit/L Normal 21-98 [facility] Comment on above: Performed By: #### 2 [id number] #### [facility] [address] [place] [address] ALT No additional P-5'-P [Catalytic activity/Vol] 35 Int._Unit/L Normal 6-46 [facility] Comment on above: Performed By: #### 2 [id number] #### [facility] [address] [place] [address] Anion gap [Moles/Vol] 12 mmol/L Normal 6-16 [facility] Comment on above: Performed By: #### 2 [id number] #### [facility] [address] [place] [address] AST [Catalytic activity/Vol] 36 Int._Unit/L Normal 5-43 [facility] Comment on above: Performed By: #### 2 [id number] #### [facility] [address] [place] [address] Bilirubin [Mass/Vol] 0.9 mg/dL Normal 0.0-1.1 [facility] Comment on above: Performed By: #### 2 [id number] #### [facility] [address] [place] [address] Calcium [Mass/Vol] 9.1 mg/dL Normal 8.9-11.1 [facility] Comment on above: Performed By: #### 2 [id number] #### [facility] [address] [place] [address] Chloride [Moles/Vol] 99 mmol/L Low 101-111 [facility] Comment on above: Performed By: #### 2 [id number] #### [facility] [address] [place] [address] CO2 [Moles/Vol] 31 mmol/L Normal 21-31 [facility] Comment on above: Performed By: #### 2 [id number] #### [facility] [address] [place] [address] Creatinine [Mass/Vol] 1.2 mg/dL Normal 0.5-1.3 [facility] Comment on above: Performed By: #### 2 [id number] #### [facility] [address] [place] [address] Globulin (S) [Mass/Vol] 3.2 g/dL Normal 1.4-4.0 [facility] Comment on above: Performed By: #### 2 [id number] #### [facility] [address] [place] [address] Glucose [Mass/Vol] 101 mg/dL Normal 55-199 [facility] Comment on above: Performed By: #### 2 [id number] #### [facility] [address] [place] [address] Potassium [Moles/Vol] 3.6 mmol/L Normal 3.5-5.3 [facility] Comment on above: Performed By: #### 2 [id number] #### [facility] [address] [place] [address] Protein [Mass/Vol] 7.6 g/dL Normal 6.0-7.8 [facility] Comment on above: Performed By: #### 2 [id number] #### [facility] [address] [place] [address] Sodium [Moles/Vol] 138 mmol/L Normal 135-145 [facility] Comment on above: Performed By: #### 2 [id number] #### [facility] [address] [place] [address] Urea nitrogen [Mass/Vol] 8 mg/dL Normal 5-21 [facility] Comment on above: Performed By: #### 2 [id number] #### [facility] [address] [place] [address] Urea nitrogen/Creatinine [Mass ratio] 7 No Units Low - [facility] Comment on above: Performed By: #### 2 [id number] #### [facility] [address] [place] [address] Free T4on 07-07-2023 Free T4 [Mass/Vol] 0.72 ng/dL Normal 0.58-1.64 [facility] Comment on above: Performed By: #### 2 [id number] #### [facility] [address] [place] [address] [id number] 07-07-2023 HbA1c (Bld) [Mass fraction] 5.7 % Normal <=5.9 [facility] Comment on above: Performed By: #### 7 [id number] #### [facility] [address] [place] [address] Lipid Panelon 07-07-2023 Cholesterol [Mass/Vol] 187 mg/dL Normal 120-200 [facility] Comment on above: Performed By: #### 2 [id number] #### [facility] [address] [place] [address] Cholesterol in HDL [Mass/Vol] 30 mg/dL Invalid Interpretation Code [facility] Comment on above: Result Comment: '>= 60 LOW RISK' '<= 40 HIGH RISK' Performed By: #### 2 [id number] #### [facility] [address] [place] [address] Cholesterol in LDL [Mass/Vol] 119 mg/dL Normal <=129 [facility] Comment on above: Performed By: #### 2 [id number] #### [facility] [address] [place] [address] Cholesterol in VLDL [Mass/Vol] 60 mg/dL High 7-40 [facility] Comment on above: Performed By: #### 2 [id number] #### [facility] [address] [place] [address] Triglyceride [Mass/Vol] 299 mg/dL High <=149 [facility] Comment on above: Performed By: #### 2 [id number] #### [facility] [address] [place] [address] Nurse Consultation Noteon Nurse Consultation Note Reason for Visit bloodwork Assessment/Plan HTN (hypertension) (I10: Essential (primary) hypertension) Hyperchloremia (E87.8: Other disorders of electrolyte and fluid balance, not elsewhere classified) Hyperglycemia (R73.9: Hyperglycemia, unspecified) Hypothyroidism (E03.9: Hypothyroidism, unspecified) Medications albuterol 0.083% Inh Cecille 3 mL, 2.5 mg= 3 mL, NEB, q4hr allopurinol 100 mg Tab, See Instructions amLODIPine 10 mg Tab, See Instructions budesonide 0.5 mg/2 mL Inh Susp, BID colchicine 0.6 mg Tab, 0.6 mg= 1 tab(s), Oral, q1hr, PRN Dosokap oral tablet, 1 tab(s), Oral, Daily DULoxetine 40 mg oral delayed release capsule, 40 mg= 1 cap(s), Oral, Daily Fasenra Pen 30 mg/mL subcutaneous solution, 30 mg, SubCutaneous, q4wk hydrochlorothiazide 25 mg Tab, 25 mg= 1 tab(s), Oral, Daily, 1 refills Lamictal 100 mg Tab, 100 mg= 1 tab(s), Oral, Daily levothyroxine 75 mcg (0.075 mg) Tab, 75 mcg= 1 tab(s), Oral, Daily losartan 100 mg Tab, See Instructions, 1 refills metoprolol 25 mg ER Tab, 25 mg= 1 tab(s), Oral, Daily, 4 refills omeprazole 40 mg Cap-DR, See Instructions, 1 refills Spiriva Respimat 1.25 mcg/inh inhalation aerosol, 2 puff(s), Inhalation, Daily Symbicort 160/4.5 inhalation aerosol with adapter, 2 puff(s), Inhalation, BID Syringes, See Instructions, 3 refills testosterone cypionate 200 mg/mL IM Cecille, 200 mg= 1 mL, IntraMuscular, q2wk topiramate 100 mg Tab, 100 mg= 1 tab(s), Oral, Bedtime Ventolin HFA 90 mcg/inh Aerosol-Adpt, 2 puff(s), Inhalation, q4hr Allergies Lexapro (Unknown) Immunizations Vaccine Date Status Comments influenza virus vaccine, inactivated - Not Given Patient Refuses influenza virus vaccine, inactivated - Not Given Patient Refuses influenza virus vaccine, inactivated - Not Given Patient Refuses influenza virus vaccine, inactivated - Not Given Patient Refuses influenza virus vaccine, inactivated 12/10/2014 Recorded Normal [facility] TSH With T4fr Reflexon 07-06 TSH Qn 9.82 m[IU]/L High 0.34-5.60 [facility] Comment on above: Performed By: #### 1 [id number] #### [facility] [address] [place] [address] eGFRon 07-07-2023 eGFR 74 mL/min/1.73 m2 Normal >=59 [facility] Comment on above: Order Comment: Order added by Discern Expert. Performed By: #### 1 [id number] #### [facility] [address] [place] [address] Consultation Noteon 06-01-19 Consultation Note [id number] #1.00TIFF Normal [facility] Nurse Consultation Noteon Nurse Consultation Note Reason for Visit Here for blood pressure check Today reads 136/84 Physical Exam Vitals & Measurements BP: 136/84 Medications albuterol 0.083% Inh Cecille 3 mL, 2.5 mg= 3 mL, NEB, q4hr allopurinol 100 mg Tab, See Instructions amLODIPine 10 mg Tab, See Instructions budesonide 0.5 mg/2 mL Inh Susp, BID colchicine 0.6 mg Tab, 0.6 mg= 1 tab(s), Oral, q1hr, PRN Dosokap oral tablet, 1 tab(s), Oral, Daily DULoxetine 40 mg oral delayed release capsule, 40 mg= 1 cap(s), Oral, Daily Fasenra Pen 30 mg/mL subcutaneous solution, 30 mg, SubCutaneous, q4wk hydrochlorothiazide 25 mg Tab, 25 mg= 1 tab(s), Oral, Daily, 1 refills Lamictal 100 mg Tab, 100 mg= 1 tab(s), Oral, Daily levothyroxine 75 mcg (0.075 mg) Tab, 75 mcg= 1 tab(s), Oral, Daily losartan 100 mg Tab, See Instructions, 1 refills metoprolol 25 mg ER Tab, 25 mg= 1 tab(s), Oral, Daily omeprazole 40 mg Cap-DR, See Instructions, 1 refills Spiriva Respimat 1.25 mcg/inh inhalation aerosol, 2 puff(s), Inhalation, Daily Symbicort 160/4.5 inhalation aerosol with adapter, 2 puff(s), Inhalation, BID Syringes, See Instructions, 3 refills testosterone cypionate 200 mg/mL IM Cecille, 200 mg= 1 mL, IntraMuscular, q2wk topiramate 100 mg Tab, 100 mg= 1 tab(s), Oral, Bedtime Ventolin HFA 90 mcg/inh Aerosol-Adpt, 2 puff(s), Inhalation, q4hr Allergies Lexapro (Unknown) Immunizations Vaccine Date Status Comments influenza virus vaccine, inactivated - Not Given Patient Refuses influenza virus vaccine, inactivated - Not Given Patient Refuses influenza virus vaccine, inactivated - Not Given Patient Refuses influenza virus vaccine, inactivated - Not Given Patient Refuses influenza virus vaccine, inactivated 12/10/2014 Recorded Normal [facility] Medication Refillon 05-19-19 24 Medication Refill [id number] #1.00TIFF [facility] Ambulatory Visit Summaryon 0 05-18-2023 Ambulatory Visit Summary NATALY WILD :1975 Visit Date:05/18/2023 Ambulatory Visit Instructions Your Diagnosis Vitamin D deficiency HTN (hypertension) BMI 38.0-38.9,adult Class 1 obesity due to excess calories in adult Former smoker Hypogonadism in male Hypothyroidism Hyperglycemia Mixed hyperlipidemia Gout Your Care Team Attending Physician - Akil Reeves MD Primary Care Physician - Akil Reeves MD This Is Your Medications List [facility] Prescription (Syringes) colchicine (colchicine 0.6 mg Tab) testosterone (testosterone cypionate 200 mg/mL IM Cecille) Contact prescribing physician if questions or concerns albuterol (Ventolin HFA 90 mcg/inh Aerosol-Adpt) albuterol (albuterol 0.083% Inh Cecille 3 mL) allopurinol (allopurinol 100 mg Tab) amlodipine (amLODIPine 10 mg Tab) benralizumab (Fasenra Pen 30 mg/mL subcutaneous solution) budesonide (budesonide 0.5 mg/2 mL Inh Susp) budesonide-formotero l (Symbicort 160/4.5 inhalation aerosol with adapter) duloxetine (DULoxetine 40 mg oral delayed release capsule) hydrochlorothiazide (hydrochlorothiazide 25 mg Tab) lamotrigine (Lamictal 100 mg Tab) levothyroxine (levothyroxine 75 mcg (0.075 mg) Tab) losartan (losartan 100 mg Tab) metoprolol (metoprolol 25 mg ER Tab) multivitamin (Dosokap oral tablet) omeprazole (omeprazole 40 mg Cap-DR) tiotropium (Spiriva Respimat 1.25 mcg/inh inhalation aerosol) topiramate (topiramate 100 mg Tab) Procedures Performed Colonoscopy, EGD (esophagogastroduode noscopy) and closure of duodenal fistula. Discharge Vitals Temperature (Temporal Artery) 36.7 ?C Heart Rate (Peripheral) 76 Respiratory Rate 18 Blood Pressure 142/86 Height 171 cm Height 67 in Weight 112.9 kg Weight 248.38 lb BMI 38.61 What to do next Scheduled Follow-Up Appointments Tuesday 8:40 AM EDT With: Where: [facility] Invalid Interpretation Code [address] [place] [address]- \.br\ 2023 7:15 AM EDT \.br\ With: Akil Reeves MD\.br\ Where: [facility] Medicine Office/Clini c Noteon 05-18-2023 Family Medicine Office/Clinic Note HPI Staff Nataly is a 48 year old male presenting for 3 month follow up Vit D deficiency, thyroid, htn BRENT started back on levothyroxine 75mcg Patient is here for follow up on Thyroid Disease. Do you have any of the following symptoms? Change in energy level? yesfluctuates Weight change? no Heat/cold intolerance? no Hair/skin/nail changes? no Change in bowels? no Last TSH: TSH: 8.43 mcIU/mL High (02/10/23 08:16:00) T4 Free: 0.65 ng/dL (02/10/23) Patient is here for follow up on hypertension. How often are you checking your blood pressure? Doesnt check BP at home What are your average readings? N/A, Not checking at home Yearly BMP: 12/27/22 questions/concerns: needs testosterone and syringes w/ needles refilled, was to hae a shot last week and didn't realize he ran out History of Present Illness - Here for follow up. - See staff HPI Physical Exam Vitals & Measurements T: 36.7 ?C(Temporal Artery) HR: 76(Peripheral) RR: 18 BP: 142/86 SpO2: 95% HT: 67 in HT: 171 cm WT: 112.9 kg WT: 248.38 lb BMI: 38.61 General: alert, no acute distress ENMT: oral mucosa moist, Cardiovascular: regular rate and rhythm, normal peripheral perfusion Respiratory: Lungs CTA, respirations non labored Extremities: no deformity, no trauma Neurological: oriented x 4, LOC appropriate for age, CN II-XII intact, motor strength equal & normal bilaterally, speech normal Abdomen: Soft, Nontender, Non-distended, + BS Assessment/Plan 1. Vitamin D deficiency (E55.9: Vitamin D deficiency, unspecified) - Will recheck today. - Has not taken an OTC and patient did not get the script filled. - Will retry again Ordered: colchicine, 0.6 mg = 1 tab(s), Oral, q1hr, PRN for gout pain, at the first sign of a gout flare followed by 0.6 mg one hour later, # 3 tab(s), Refills(s) 0, Pharmacy: [facility], 171, cm, 05/18/23 9:36:00 EDT, Height/Length Dosing, 112.9, kg, 05/18/23 9... Body Mass Index (BMI) documented 3008F Comprehensive Metabolic Panel Current tobacco non-user 1036F HgbA1c Influenza immunization status assessed 1030F Lipid Panel Most recent diastolic blood pressure 80-89 mm Hg 3079F Most recent systolic blood pressure >= 140 mm Hg 3077F TSH With T4fr Reflex 2. HTN (hypertension) (I10: Essential (primary) hypertension) - Elevated today. - Will repeat reading. - Will adjust meds if needed Ordered: colchicine, 0.6 mg = 1 tab(s), Oral, q1hr, PRN for gout pain, at the first sign of a gout flare followed by 0.6 mg one hour later, # 3 tab(s), Refills(s) 0, Pharmacy: [facility], 171, cm, 05/18/23 9:36:00 EDT, Height/Length Dosing, 112.9, kg, 05/18/23 9... Body Mass Index (BMI) documented 3008F Comprehensive Metabolic Panel Current tobacco non-user 1036F HgbA1c Influenza immunization status assessed 1030F Lipid Panel Most recent diastolic blood pressure 80-89 mm Hg 3079F Most recent systolic blood pressure >= 140 mm Hg 3077F TSH With T4fr Reflex 3. BMI 38.0-38.9,adult (Z68.38: Body mass index [BMI] 38.0-38.9, adult) - BMI education given Ordered: colchicine, 0.6 mg = 1 tab(s), Oral, q1hr, PRN for gout pain, at the first sign of a gout flare followed by 0.6 mg one hour later, # 3 tab(s), Refills(s) 0, Pharmacy: [facility], 171, cm, 05/18/23 9:36:00 EDT, Height/Length Dosing, 112.9, kg, 05/18/23 9... Body Mass Index (BMI) documented 3008F Comprehensive Metabolic Panel Current tobacco non-user 1036F HgbA1c Influenza immunization status assessed 1030F Lipid Panel Most recent diastolic blood pressure 80-89 mm Hg 3079F Most recent systolic blood pressure >= 140 mm Hg 3077F TSH With T4fr Reflex 4. Class 1 obesity due to excess calories in adult (E66.09: Other obesity due to excess calories) - Diet and exercise advised Ordered: colchicine, 0.6 mg = 1 tab(s), Oral, q1hr, PRN for gout pain, at the first sign of a gout flare followed by 0.6 mg one hour later, # 3 tab(s), Refills(s) 0, Pharmacy: [facility], 171, cm, 05/18/23 9:36:00 EDT, Height/Length Dosing, 112.9, kg, 05/18/23 9... Body Mass Index (BMI) documented 3008F Comprehensive Metabolic Panel Current tobacco non-user 1036F HgbA1c Influenza immunization status assessed 1030F Lipid Panel Most recent diastolic blood pressure 80-89 mm Hg 3079F Most recent systolic blood pressure >= 140 mm Hg 3077F TSH With T4fr Reflex 5. Former smoker (Z87.891: Personal history of nicotine dependence) - Please continue to not smoke Ordered: colchicine, 0.6 mg = 1 tab(s), Oral, q1hr, PRN for gout pain, at the first sign of a gout flare followed by 0.6 mg one hour later, # 3 tab(s), Refills(s) 0, Pharmacy: [facility], 171, cm, 05/18/23 9:36:00 EDT, Height/Length Dosing, 112.9, kg, 05/18/23 9... Body Mass Index (BMI) documented 3008F Comprehensive Metabolic Panel Current tobacco non-user 1036F HgbA1c Influenza immunization status assessed 1030F Lipid Panel Most recent diastolic blood p (more content not included)... Normal [facility] Comment on above: Result Comment: Elec tronically Signed By: Leandro RENDON, Akil Koo\.br\Date and Time Signed: 05/18/23 15:15 EDT [employer] 03-10-2023 Forms [id number] #1.00TIFF [facility] Ambulatory Visit Summaryon 0 02-21-2023 Ambulatory Visit Summary NATALY WILD :1975 Visit Date:02/21/2023 Ambulatory Visit Instructions Your Diagnosis Hypogonadism in male Hypothyroidism Vitamin D deficiency BMI 36.0-36.9,adult Class 1 obesity due to excess calories in adult Former smoker Your Care Team Attending Physician - Akil Reeves MD Primary Care Physician - Akil Reeves MD This Is Your Medications List levothyroxine (levothyroxine 75 mcg (0.075 mg) Tab) multivitamin (Dosokap oral tablet) Contact prescribing physician if questions or concerns Misc Prescription (Syringes) albuterol (Ventolin HFA 90 mcg/inh Aerosol-Adpt) albuterol (albuterol 0.083% Inh Cecille 3 mL) allopurinol (allopurinol 100 mg Tab) amlodipine (amLODIPine 10 mg Tab) benralizumab (Fasenra Pen 30 mg/mL subcutaneous solution) budesonide (budesonide 0.5 mg/2 mL Inh Susp) budesonide-formotero l (Symbicort 160/4.5 inhalation aerosol with adapter) duloxetine (DULoxetine 40 mg oral delayed release capsule) hydrochlorothiazide (hydrochlorothiazide 25 mg Tab) lamotrigine (Lamictal 100 mg Tab) losartan (losartan 100 mg Tab) metoprolol (metoprolol 25 mg ER Tab) omeprazole (omeprazole 40 mg Cap-DR) testosterone (testosterone cypionate 200 mg/mL IM Cecille) tiotropium (Spiriva Respimat 1.25 mcg/inh inhalation aerosol) topiramate (topiramate 100 mg Tab) Procedures Performed Colonoscopy, EGD (esophagogastroduode noscopy) and closure of duodenal fistula. Discharge Vitals Temperature (Temporal Artery) 37.3 ?C Heart Rate (Peripheral) 90 Respiratory Rate 20 Blood Pressure 136/84 Height 171 cm Height 67 in Weight 114.1 kg Weight 251.02 lb BMI 39.02 What to do next Scheduled Follow-Up Appointments 2023 8:00 AM EDT With: Leandro RENDON, Akil Koo Where: [facility] [place] Normal [facility] Family Medicine Office/Clini c Noteon 02-21-2023 Family Medicine Office/Clinic Note HPI Staff Nataly is a 47 year old male presenting for medication adjustments after recent labs Labs done 02/10/23 TSH: TSH: 8.43 mcIU/mL High (02/10/23 08:16:00) Vit D 16.6 flu: refused for season questions/concerns: none History of Present Illness Pt here to discuss labs - Reviewed - All questions asked - Pt has been hypothyroid in the past, but patient stopped taking his meds months ago. - This was before I started to see him. Physical Exam Vitals & Measurements T: 37.3 ?C(Temporal Artery) HR: 90(Peripheral) RR: 20 BP: 136/84 SpO2: 95% HT: 67 in HT: 171 cm WT: 114.1 kg WT: 251.02 lb BMI: 39.02 General: alert, no acute distress ENMT: oral mucosa moist, Cardiovascular: regular rate and rhythm, normal peripheral perfusion Respiratory: Lungs CTA, respirations non labored Extremities: no deformity, no trauma Neurological: oriented x 4, LOC appropriate for age, CN II-XII intact, motor strength equal & normal bilaterally, speech normal Abdomen: Soft, Nontender, Non-distended, + BS Assessment/Plan 1. Hypogonadism in male (E29.1: Testicular hypofunction) - At goal with test levels - Refilled. - No issues at this time Ordered: levothyroxine, 75 mcg = 1 tab(s), Oral, Daily, # 90 tab(s), Refills(s) 0, Pharmacy: [facility], 171, cm, 02/21/23 6:51:00 EST, Height/Length Dosing, 114.1, kg, 02/21/23 6:51:00 EST, Weight Dosing multivitamin, 1 tab(s), Oral, Daily, 90 tab(s), Refill(s) 0, [facility], 171, cm, 02/21/23 6:51:00 EST, Height/Length Dosing, 114.1, kg, 02/21/23 6:51:00 EST, Weight Dosing Body Mass Index (BMI) documented 3008F Current tobacco non-user 1036F Influenza immunization status assessed 1030F Most recent diastolic blood pressure 80-89 mm Hg 3079F Systolic BP 130-139 mm Hg (Most Recent) 3075F 2. Hypothyroidism (E03.9: Hypothyroidism, unspecified) - Will restart thyroid meds - Send in today Ordered: levothyroxine, 75 mcg = 1 tab(s), Oral, Daily, # 90 tab(s), Refills(s) 0, Pharmacy: [facility], 171, cm, 02/21/23 6:51:00 EST, Height/Length Dosing, 114.1, kg, 02/21/23 6:51:00 EST, Weight Dosing multivitamin, 1 tab(s), Oral, Daily, 90 tab(s), Refill(s) 0, [facility], 171, cm, 02/21/23 6:51:00 EST, Height/Length Dosing, 114.1, kg, 02/21/23 6:51:00 EST, Weight Dosing Body Mass Index (BMI) documented 3008F Current tobacco non-user 1036F Influenza immunization status assessed 1030F Most recent diastolic blood pressure 80-89 mm Hg 3079F Systolic BP 130-139 mm Hg (Most Recent) 3075F 3. Vitamin D deficiency (E55.9: Vitamin D deficiency, unspecified) - Will start dosokaps - Follow up in 2 months Ordered: levothyroxine, 75 mcg = 1 tab(s), Oral, Daily, # 90 tab(s), Refills(s) 0, Pharmacy: [facility], 171, cm, 02/21/23 6:51:00 EST, Height/Length Dosing, 114.1, kg, 02/21/23 6:51:00 EST, Weight Dosing multivitamin, 1 tab(s), Oral, Daily, 90 tab(s), Refill(s) 0, [facility], 171, cm, 02/21/23 6:51:00 EST, Height/Length Dosing, 114.1, kg, 02/21/23 6:51:00 EST, Weight Dosing Body Mass Index (BMI) documented 3008F Current tobacco non-user 1036F Influenza immunization status assessed 1030F Most recent diastolic blood pressure 80-89 mm Hg 3079F Systolic BP 130-139 mm Hg (Most Recent) 3075F 4. BMI 36.0-36.9,adult (Z68.36: Body mass index [BMI] 36.0-36.9, adult) - BMI education given Ordered: levothyroxine, 75 mcg = 1 tab(s), Oral, Daily, # 90 tab(s), Refills(s) 0, Pharmacy: [facility], 171, cm, 02/21/23 6:51:00 EST, Height/Length Dosing, 114.1, kg, 02/21/23 6:51:00 EST, Weight Dosing multivitamin, 1 tab(s), Oral, Daily, 90 tab(s), Refill(s) 0, [facility], 171, cm, 02/21/23 6:51:00 EST, Height/Length Dosing, 114.1, kg, 02/21/23 6:51:00 EST, Weight Dosing Body Mass Index (BMI) documented 3008F Current tobacco non-user 1036F Influenza immunization status assessed 1030F Most recent diastolic blood pressure 80-89 mm Hg 3079F Systolic BP 130-139 mm Hg (Most Recent) 3075F 5. Class 1 obesity due to excess calories in adult (E66.09: Other obesity due to excess calories) - Diet and exercise advised Ordered: levothyroxine, 75 mcg = 1 tab(s), Oral, Daily, # 90 tab(s), Refills(s) 0, Pharmacy: [facility], 171, cm, 02/21/23 6:51:00 EST, Height/Length Dosing, 114.1, kg, 02/21/23 6:51:00 EST, Weight Dosing multivitamin, 1 tab(s), Oral, Daily, 90 tab(s), Refill(s) 0, [facility], 171, cm, 02/21/23 6:51:00 EST, Height/Length Dosing, 114.1, kg, 02/21/23 6:51:00 EST, Weight Dosing Body Mass Index (BMI) documented 3008F Current tobacco non-user 1036F Influenza immunization status assessed 1030F Most recent diastolic blood pressure 80-89 mm Hg 3079F Systolic BP 130-139 mm Hg (Most Recent) 3075F 6. Former smoker (Z87.891: Personal history of nicotine dependence) - Please continue to not smoke Ordered: levothyroxine, 75 mcg = 1 tab(s), Oral, Daily, # 90 tab(s), Refills(s) 0, [facility]acy: [facility] (more content not included)... Normal [facility] Comment on above: Result Comment: Elec tronically Signed By: Leandro RENDON, Akil Gordon.br\Date and Time Signed: 02/21/23 07:05 EST Patient Educationon 02-21-19 Patient Education Nutrition BMI for Adults What is BMI? Body mass index (BMI) is a number that is calculated from a person's weight and height. BMI can help estimate how much of a person's weight is composed of fat. BMI does not measure body fat directly. Rather, it is an alternative to procedures that directly measure body fat, which can be difficult and expensive. BMI can help identify people who may be at higher risk for certain medical problems. What are BMI measurements used for? BMI is used as a screening tool to identify possible weight problems. It helps determine whether a person is obese, overweight, a healthy weight, or underweight. BMI is useful for: ? Identifying a weight problem that may be related to a medical condition or may increase the risk for medical problems. ? Promoting changes, such as changes in diet and exercise, to help reach a healthy weight. BMI screening can be repeated to see if these changes are working. How is BMI calculated? BMI involves measuring your weight in relation to your height. Both height and weight are measured, and the BMI is calculated from those numbers. This can be done either in [place] or metric measurements. Note that charts and online BMI calculators are available to help you find your BMI quickly and easily without having to do these calculations yourself. To calculate your BMI in [place] measurements: 1. Measure your weight in pounds (lb). 2. Multiply the number of pounds by 703. ? For example, for a person who weighs 180 lb, multiply that number by 703, which equals 126,540. 3. Measure your height in inches. Then multiply that number by itself to get a measurement called inches squared. ? For example, for a person who is 70 inches tall, the inches squared measurement is 70 inches x 70 inches, which equals 4,900 inches squared. 4. Divide the total from step 2 (number of lb x 703) by the total from step 3 (inches squared): 126,540 ? 4,900 = 25.8. This is your BMI. To calculate your BMI in metric measurements: 1. Measure your weight in kilograms (kg). 2. Measure your height in meters (m). Then multiply that number by itself to get a measurement called meters squared. ? For example, for a person who is 1.75 m tall, the meters squared measurement is 1.75 m x 1.75 m, which is equal to 3.1 meters squared. 3. Divide the number of kilograms (your weight) by the meters squared number. In this example: 70 ? 3.1 = 22.6. This is your BMI. What do the results mean? BMI charts are used to identify whether you are underweight, normal weight, overweight, or obese. The following guidelines will be used: ? Underweight: BMI less than 18.5. ? Normal weight: BMI between 18.5 and 24.9. ? Overweight: BMI between 25 and 29.9. ? Obese: BMI of 30 or above. Keep these notes in mind: ? Weight includes both fat and muscle, so someone with a muscular build, such as an athlete, may have a BMI that is higher than 24.9. In cases like these, BMI is not an accurate measure of body fat. ? To determine if excess body fat is the cause of a BMI of 25 or higher, further assessments may need to be done by a health care provider. ? BMI is usually interpreted in the same way for men and women. Where to find more information For more information about BMI, including tools to quickly calculate your BMI, go to these websites: ? Centers for Disease Control and Prevention: www.cdc.gov ? [place] [employer]: www.heart.org ? National Heart, Lung, and Blood [place]: www.nhlbi.nih.gov Summary ? Body mass index (BMI) is a number that is calculated from a person's weight and height. ? BMI may help estimate how much of a person's weight is composed of fat. BMI can help identify those who may be at higher risk for certain medical problems. ? BMI can be measured using [place] measurements or metric measurements. ? BMI charts are used to identify whether you are underweight, normal weight, overweight, or obese. This information is not intended to replace advice given to you by your health care provider. Make sure you discuss any questions you have with your health care provider. Document Revised: 10/17/2019 Document Reviewed: 08/24/2019 [employer] Patient Education ? 2022 [employer]. Normal [facility] Testosterone F&Ton 4 Testosterone [Mass/Vol] 642 ng/dL Invalid Interpretation Code [id number] [facility] Comment on above: Result Comment: Adul t male reference interval is based on a population of healthy nonobese males (BMI <30) between 19 and 39 years old. lisa Meza.al. JCEM 2017,102;[id number]. PMID: [id number]. Performed By: #### 1 [id number] ####[facility] [id number] [place] [address] Testosterone Free [Mass/Vol] 16.2 pg/mL Invalid Interpretation Code 6.8-21.5 [facility] Comment on above: Result Comment: Perf ormed at: [facility] [address] [id number] PhD Brook Rios Performed at: [facility] [address] [id number] MD Shane Alvarado Performed By: #### 1 [id number] ####[facility] [id number] [place] [address] Ambulatory Visit Summaryon 0 02-10-2023 Ambulatory Visit Summary NATALY WILD :1975 Visit Date:02/10/2023 Ambulatory Visit Instructions Your Diagnosis HTN (hypertension) Obstructive sleep apnea Bipolar 1 disorder Hypogonadism in male Hypothyroidism, unspecified type Hyperglycemia Vitamin D deficiency BMI 36.0-36.9,adult Class 1 obesity due to excess calories in adult Former smoker Your Care Team Attending Physician - Akil Reeves MD Primary Care Physician - Akil Reeves MD This Is Your Medications List testosterone (testosterone cypionate 200 mg/mL IM Cecille) Contact prescribing physician if questions or concerns Misc Prescription (Syringes) albuterol (Ventolin HFA 90 mcg/inh Aerosol-Adpt) albuterol (albuterol 0.083% Inh Cecille 3 mL) allopurinol (allopurinol 100 mg Tab) amlodipine (amLODIPine 10 mg Tab) benralizumab (Fasenra Pen 30 mg/mL subcutaneous solution) budesonide (budesonide 0.5 mg/2 mL Inh Susp) budesonide-formotero l (Symbicort 160/4.5 inhalation aerosol with adapter) duloxetine (DULoxetine 40 mg oral delayed release capsule) hydrochlorothiazide (hydrochlorothiazide 25 mg Tab) lamotrigine (Lamictal 100 mg Tab) losartan (losartan 100 mg Tab) metoprolol (metoprolol 25 mg ER Tab) omeprazole (omeprazole 40 mg Cap-DR) tiotropium (Spiriva Respimat 1.25 mcg/inh inhalation aerosol) topiramate (topiramate 100 mg Tab) [Image Removed: STOP]Stop taking these medications colchicine (colchicine 0.6 mg Tab) Procedures Performed Colonoscopy, EGD (esophagogastroduode noscopy) and closure of duodenal fistula. Discharge Vitals Temperature (Temporal Artery) 36.8 ?C Heart Rate (Peripheral) 70 Respiratory Rate 18 Blood Pressure 138/82 Height 69 in Height 175 cm Weight 248.38 lb Weight 112.9 kg BMI 36.87 What to do next Scheduled Follow-Up Appointments 2023 8:00 AM EDT With: Leandro RENDON, Akil Koo Where: [facility] Medicine [place] Invalid Interpretation Code Bipolar 1 disorder [facility] CHEMISTRYOrdered By: SYSTEM SYSTEM on 02-10-2023 Free T4 [Mass/Vol] 0.65 ng/dL Normal 0.58 - 1.64 ng/dL Remisol Chem TSH Qn 8.43 m[IU]/L High 0.34 - 5.60 mcIU/mL Rem isol Chem Vitamin D 25 Hydroxy 16.6 ng/mL Low 30.0 - 100.0 ng/mL Remisol Chem Family Medicine Office/Clini c Noteon 02-10-2023 Family Medicine Office/Clinic Note HPI Staff Nataly is a 47 year old male presenting for one month follow up htn Patient is here for follow up on hypertension. How often are you checking your blood pressure? Doesnt check BP at home What are your average readings? N/A, Not checking at home Yearly BMP: 12/27/22 _ flu: refused questions/concerns: needs his testosterone refilled ( last testosterone 4.0 on 12/27/22) History of Present Illness The patient presents for evaluation of multiple medical concerns. His testosterone levels come up and then within about a week they drop again. His bipolar is doing okay. He has always had issues with staying up too late. He goes to bed by 1:00 or 2:00 and wakes up around 9:00 or 10:00. Dr. Thornton took him off from work due to issues with testosterone, bipolar, and other things he does not remember. He has not worked since 2011. He is on BiPAP for his sleep apnea. He got up a little bit ago. He took his blood pressure medication as soon as he got up. Part of the stress that he had last year is gone now. He snores, but it is not as bad as it was. Physical Exam Vitals & Measurements T: 36.8 ?C(Temporal Artery) HR: 70(Peripheral) RR: 18 BP: 138/82 SpO2: 99% HT: 69 in HT: 175 cm WT: 112.9 kg WT: 248.38 lb BMI: 36.87 General: alert, no acute distress ENMT: oral mucosa moist, Cardiovascular: regular rate and rhythm, normal peripheral perfusion Respiratory: Lungs CTA, respirations non labored Extremities: no deformity, no trauma Neurological: oriented x 4, LOC appropriate for age, CN II-XII intact, motor strength equal & normal bilaterally, speech normal Abdomen: Soft, Nontender, Non-distended, + BS Assessment/Plan 1. HTN (hypertension) (I10: Essential (primary) hypertension) Blood pressure improved after waiting. Will continue to follow-up and monitor his blood pressure. Diet and exercise advised. Will refill medication as needed. Ordered: Body Mass Index (BMI) documented 3008F Current tobacco non-user 1036F HgbA1c Influenza immunization status assessed 1030F Most recent diastolic blood pressure >=90 mm Hg 3080F Most recent systolic blood pressure >= 140 mm Hg 3077F Testosterone F&T TSH With T4fr Reflex Vitamin D 25 Hydroxy 2. Obstructive sleep apnea (G47.33: Obstructive sleep apnea (adult) (pediatric)) Continue on BiPAP as before. 3. Bipolar 1 disorder (F31.9: Bipolar disorder, unspecified) Well-controlled at this time. No concerns. Ordered: Body Mass Index (BMI) documented 3008F Current tobacco non-user 1036F HgbA1c Influenza immunization status assessed 1030F Most recent diastolic blood pressure >=90 mm Hg 3080F Most recent systolic blood pressure >= 140 mm Hg 3077F Testosterone F&T TSH With T4fr Reflex Vitamin D 25 Hydroxy 4. Hypogonadism in male (E29.1: Testicular hypofunction) Will recheck testosterone today after increasing his medication. If there is still not in proved response we will change to transdermal. Will refill meds today. Ordered: Body Mass Index (BMI) documented 3008F Current tobacco non-user 1036F HgbA1c Influenza immunization status assessed 1030F Most recent diastolic blood pressure >=90 mm Hg 3080F Most recent systolic blood pressure >= 140 mm Hg 3077F Testosterone F&T TSH With T4fr Reflex Vitamin D 25 Hydroxy 5. Hypothyroidism, unspecified type (E03.9: Hypothyroidism, unspecified) Patient needs a recheck today. Will adjust medication as needed. Will follow-up in 3 months. Ordered: HgbA1c Testosterone F&T TSH With T4fr Reflex Vitamin D 25 Hydroxy 6. Hyperglycemia (R73.9: Hyperglycemia, unspecified) A1c is slightly elevated. Had ordered to recheck today but it is too soon. Will recheck in 3 months. Ordered: HgbA1c Testosterone F&T TSH With T4fr Reflex Vitamin D 25 Hydroxy 7. Vitamin D deficiency (E55.9: Vitamin D deficiency, unspecified) Will recheck a vitamin D level today. Ordered: HgbA1c Testosterone F&T TSH With T4fr Reflex Vitamin D 25 Hydroxy 8. BMI 36.0-36.9,adult (Z68.36: Body mass index [BMI] 36.0-36.9, adult) BMI education given. Diet and exercise advised. Ordered: Body Mass Index (BMI) documented 3008F Current tobacco non-user 1036F HgbA1c Influenza immunization status assessed 1030F Most recent diastolic blood pressure >=90 mm Hg 3080F Most recent systolic blood pressure >= 140 mm Hg 3077F Testosterone F&T TSH With T4fr Reflex Vitamin D 25 Hydroxy 9. Class 1 obesity due to excess calories in adult (E66.09: Other obesity due to excess calories) Diet and exercise advised. Ordered: Body Mass Index (BMI) documented 3008F Current tobacco non-user 1036F HgbA1c Influenza immunization status assessed 1030F Most recent diastolic blood pressure >=90 mm Hg 3080F Most recent systolic blood pressure >= 140 mm Hg 3077F Testosterone F&T TSH With T4fr Reflex Vitamin D 25 Hydroxy 10. Former smoker (Z87.891: Personal history of nicotine dependenc (more content not included)... Normal [facility] Comment on above: Result Comment: Elec tronically Signed By: Leandro RENDON, Akil Koo\.br\Date and Time Signed: 02/10/23 08:04 EST Free T4on 02-10-2023 Free T4 [Mass/Vol] 0.65 ng/dL Normal 0.58-1.64 [facility] Comment on above: Order Comment: Free T4 added by Discern Rule due to a TSH result of <0.34 or >5.60. Performed By: #### 1 [id number] ####[facility] [address] [place] [address] Patient Educationon 02-10-19 Patient Education Nutrition BMI for Adults What is BMI? Body mass index (BMI) is a number that is calculated from a person's weight and height. BMI can help estimate how much of a person's weight is composed of fat. BMI does not measure body fat directly. Rather, it is an alternative to procedures that directly measure body fat, which can be difficult and expensive. BMI can help identify people who may be at higher risk for certain medical problems. What are BMI measurements used for? BMI is used as a screening tool to identify possible weight problems. It helps determine whether a person is obese, overweight, a healthy weight, or underweight. BMI is useful for: ? Identifying a weight problem that may be related to a medical condition or may increase the risk for medical problems. ? Promoting changes, such as changes in diet and exercise, to help reach a healthy weight. BMI screening can be repeated to see if these changes are working. How is BMI calculated? BMI involves measuring your weight in relation to your height. Both height and weight are measured, and the BMI is calculated from those numbers. This can be done either in [place] or metric measurements. Note that charts and online BMI calculators are available to help you find your BMI quickly and easily without having to do these calculations yourself. To calculate your BMI in [place] measurements: 1. Measure your weight in pounds (lb). 2. Multiply the number of pounds by 703. ? For example, for a person who weighs 180 lb, multiply that number by 703, which equals 126,540. 3. Measure your height in inches. Then multiply that number by itself to get a measurement called inches squared. ? For example, for a person who is 70 inches tall, the inches squared measurement is 70 inches x 70 inches, which equals 4,900 inches squared. 4. Divide the total from step 2 (number of lb x 703) by the total from step 3 (inches squared): 126,540 ? 4,900 = 25.8. This is your BMI. To calculate your BMI in metric measurements: 1. Measure your weight in kilograms (kg). 2. Measure your height in meters (m). Then multiply that number by itself to get a measurement called meters squared. ? For example, for a person who is 1.75 m tall, the meters squared measurement is 1.75 m x 1.75 m, which is equal to 3.1 meters squared. 3. Divide the number of kilograms (your weight) by the meters squared number. In this example: 70 ? 3.1 = 22.6. This is your BMI. What do the results mean? BMI charts are used to identify whether you are underweight, normal weight, overweight, or obese. The following guidelines will be used: ? Underweight: BMI less than 18.5. ? Normal weight: BMI between 18.5 and 24.9. ? Overweight: BMI between 25 and 29.9. ? Obese: BMI of 30 or above. Keep these notes in mind: ? Weight includes both fat and muscle, so someone with a muscular build, such as an athlete, may have a BMI that is higher than 24.9. In cases like these, BMI is not an accurate measure of body fat. ? To determine if excess body fat is the cause of a BMI of 25 or higher, further assessments may need to be done by a health care provider. ? BMI is usually interpreted in the same way for men and women. Where to find more information For more information about BMI, including tools to quickly calculate your BMI, go to these websites: ? Centers for Disease Control and Prevention: www.cdc.gov ? [place] [employer]: www.heart.org ? National Heart, Lung, and Blood [employer]: www.nhlbi.nih.gov Summary ? Body mass index (BMI) is a number that is calculated from a person's weight and height. ? BMI may help estimate how much of a person's weight is composed of fat. BMI can help identify those who may be at higher risk for certain medical problems. ? BMI can be measured using [place] measurements or metric measurements. ? BMI charts are used to identify whether you are underweight, normal weight, overweight, or obese. This information is not intended to replace advice given to you by your health care provider. Make sure you discuss any questions you have with your health care provider. Document Revised: 10/17/2019 Document Reviewed: 08/24/2019 [employer] Patient Education ? 2022 [employer] Normal [facility] TSH With T4fr Reflexon 02-10 TSH Qn 8.43 m[IU]/L High 0.34-5.60 [facility] Comment on above: Performed By: #### 1 [id number] ####[facility] [address] [place] [address] Vitamin D 25 Hydroxyon 02-10 Vitamin D 25 Hydroxy 16.6 ng/mL Low 30.0-100.0 [facility] Comment on above: Performed By: #### 1 [id number] ####[facility] [address] [place] [address] Consultation Noteon 01-11-20 23 Consultation Note [id number] #[id number] Normal [facility] Ambulatory Visit Summaryon 03-08-2022 Ambulatory Visit Summary NATALY WILD :1975 Visit Date:01/06/2023 Ambulatory Visit Instructions Your Diagnosis HTN (hypertension) Hypogonadism in male Former smoker Hypothyroidism, unspecified type Hyperglycemia Class 1 obesity due to excess calories in adult BMI 36.0-36.9,adult Your Care Team Attending Physician - Akil Reeves MD Primary Care Physician - Akil Reeves MD This Is Your Medications List testosterone (testosterone cypionate 200 mg/mL IM Cecille) Contact prescribing physician if questions or concerns Misc Prescription (Syringes) albuterol (Ventolin HFA 90 mcg/inh Aerosol-Adpt) albuterol (albuterol 0.083% Inh Cecille 3 mL) allopurinol (allopurinol 100 mg Tab) amlodipine (amLODIPine 10 mg Tab) benralizumab (Fasenra Pen 30 mg/mL subcutaneous solution) budesonide (budesonide 0.5 mg/2 mL Inh Susp) budesonide-formotero l (Symbicort 160/4.5 inhalation aerosol with adapter) colchicine (colchicine 0.6 mg Tab) duloxetine (DULoxetine 40 mg oral delayed release capsule) hydrochlorothiazide (hydrochlorothiazide 25 mg Tab) lamotrigine (Lamictal 100 mg Tab) losartan (losartan 100 mg Tab) metoprolol (metoprolol 25 mg ER Tab) omeprazole (omeprazole 40 mg Cap-DR) tiotropium (Spiriva Respimat 1.25 mcg/inh inhalation aerosol) topiramate (topiramate 100 mg Tab) Procedures Performed Colonoscopy, EGD (esophagogastroduode noscopy) and closure of duodenal fistula. Discharge Vitals Temperature (Oral) 36.6 ?C Heart Rate (Peripheral) 70 Respiratory Rate 16 Blood Pressure 120/88 Height 69 in Height 175.3 cm Weight 247.94 lb Weight 112.7 kg BMI 36.67 What to do next Scheduled Follow-Up Appointments 2023 8:00 AM EST With: Leandro RENDON, Akil Koo Where: [place] [id number] \.br\ Medications\.br\ What How Much When Instructions\.br\ Changed testosterone (testosterone cypionate 200 mg/ mL IM Cecille) 1 Milliliter Intramuscular Every other week Pickup at [facility]\.br\ Unchanged albuterol (albuterol 0.083% Inh Cecille 3 mL) 3 Milliliter Nebulized inhalation (aerosol) Every 4 hours Contact prescribing physician if questions or concerns \.br\ Unchanged albuterol (Ventolin HFA 90 mcg/ inh Aerosol-Adpt) 2 Puffs Inhalation Every 4 hours Contact prescribing physician if questions or concerns \.br\ Unchanged allopurinol (allopurinol 100 mg Tab) 1 Tablets By Mouth 2 times a day Contact prescribing physician if questions or concerns \.br\ Unchanged amlodipine (amLODIPine 10 mg Tab) 1 Tablets By Mouth Every day Contact prescribing physician if questions or concerns \.br\ Unchanged benralizumab (Fasenra Pen 30 mg/ mL subcutaneous solution) 30 Milligram Subcutaneous Every 4 weeks Contact prescribing physician if questions or concerns \.br\ Unchanged budesonide (budesonide 0.5 mg/ 2 mL Inh Susp) 2 times a day 1 Unknown, 0 Refill(s) Contact prescribing physician if questions or concerns \.br\ Unchanged budesonide-formotero l (Symbicort 160/ 4.5 inhalation aerosol with adapter) 2 Puffs Inhalation 2 times a day rinse mouth after use Contact prescribing physician if questions or concerns \.br\ Unchanged colchicine (colchicine 0.6 mg Tab) 1 Tablets By Mouth Every hour as needed for for gout pain at the first sign of a gout flare followed by 0.6 mg one hour later. No more than 3 for the first day. If you need to repeat, do not repeat for at least 3 days. Contact prescribing physician if questions or concerns \.br\ Unchanged duloxetine (DULoxetine 40 mg oral delayed release capsule) 1 Capsules By Mouth Every day Contact prescribing physician if questions or concerns \.br\ Unchanged hydrochlorothiazide (hydrochlorothiazide 25 mg Tab) 1 Tablets By Mouth Every day Contact prescribing physician if questions or concerns \.br\ Unchanged lamotrigine (Lamictal 100 mg Tab) 1 Tablets By Mouth Every day at bedtime Contact prescribing physician if questions or concerns \.br\ Unchanged losartan (losartan 100 mg Tab) See instructions TAKE ONE TABLET BY MOUTH ONCE DAILY Contact prescribing physician if questions or concerns \.br\ Unchanged metoprolol (metoprolol 25 mg ER Tab) 1 Tablets By Mouth Every day Contact prescribing physician if questions or concerns \.br\ Unchanged Misc Prescription (Syringes) See instructions 3ml syringes 23g x 1 inch needles use with testosterone IM injections q4wk Contact prescribing physician if questions or concerns \.br\ Unchanged omeprazole (omeprazole 40 mg Cap-DR) See instructions TAKE ONE CAPSULE BY MOUTH ONCE DAILY Contact prescribing physician if questions or concerns \.br\ Unchanged tiotropium (Spiriva Respimat 1.25 mcg/ inh inhalation aerosol) 2 Puffs Inhalation Every day Contact prescribing physician if questions or concerns \.br\ Unchanged topiramate (topiramate 100 mg Tab) 1 Tablets By Mouth At bedtime Contact prescribing physician if questions or concerns \.br\ Pharmacy Information\.br\ [facility]: [address], [place] [id number] [phone]\.br\ Medications and Immunizations Administered\.br\ Not Given\.br\ influenza virus vaccine, inactivated, Patient Refuses\.br\ Allergies\.br\ Lexapro (Unknown)\.br\ Problems\.br\ Ongoing - Any problem that you are currently receiving treatment for.\.br\ Allergic rhinitis\.br\ Arthritis\.br\ Barretts esophagus\.br\ Bipolar 1 disorder\.br\ Gastroesophageal reflux disease without esophagitis\.br\ Gout\.br\ HTN (hypertension)\.br\ Hyperglycemia\.br\ Hypogonadism in male\.br\ Hypothyroidism\.br\ Migraine without aura and without status migrainosus, not intractable\.br\ Mild persistent asthma with status asthmaticus\.br\ Mixed hyperlipidemia\.br\ MORROW (nonalcoholic steatohepatitis)\.br \ Obstructive sleep apnea\.br\ Primary hypertension\.br\ Schatzki's ring\.br\ Subclinical hypothyroidism\.br\ Transaminitis\.br\ Vitamin D deficiency\.br\ Patient Survey\.br\ You may receive a survey via text or e-mail asking about your office visit. Please share your experience with us by completing your survey. We appreciate your feedback and thank you for choosing us for your care.\.br\ Education Materials\.br\ BMI for Adults\.br\ What is BMI?\.br\ Body mass index (BMI) is a number that is calculated from a person's weight and height. BMI can help estimate how much of a person's weight is composed of fat. BMI does not measure body fat directly. Rather, it is an alternative to procedures that directly measure body fat, which can be difficult and expensive.\.br\ BMI can help identify people who may be at higher risk for certain medical problems.\.br\ What are BMI measurements used for?\.br\ BMI is used as a screening tool to identify possible weight problems. It helps determine whether a person is obese, overweight, a healthy weight, or underweight.\.br\ BMI is useful for:\.br\ ? \.br\ Identifying a weight problem that may be related to a medical condition or may increase the risk for medical problems.\.br\ ? \.br\ Promoting changes, such as changes in diet and exercise, to help reach a healthy weight. BMI screening can be repeated to see if these changes are working.\.br\ How is BMI calculated?\.br\ BMI involves measuring your weight in relation to your height. Both height and weight are measured, and the BMI is calculated from those numbers. This can be done either in [place] or metric measurements. Note that charts and online BMI calculators are available to help you find your BMI quickly and easily without having to do these calculations yourself.\.br\ To calculate your BMI in [place] measurements:\.br\ \.br\ 1. \.br\ Measure your weight in pounds (lb).\.br\ 2. \.br\ Multiply the number of pounds by 703.\.br\ ? \.br\ For example, for a person who weighs 180 lb, multiply that number by 703, which equals 126,540.\.br\ 3. \.br\ Measure your height in inches. Then multiply that number by itself to get a measurement called inches squared. \.br\ ? \.br\ For example, for a person who is 70 inches tall, the inches squared measurement is 70 inches x 70 inches, which equals 4,900 inches squared.\.br\ 4. \.br\ Divide the total from step 2 (number of lb x 703) by the total from step 3 (inches squared): 126,540 ? 4,900 = 25.8. This is your BMI.\.br\ To calculate your BMI in metric measurements:\.br\ 1. \.br\ Measure your weight in kilograms (kg).\.br\ 2. \.br\ Measure your height in meters (m). Then multiply that number by itself to get a measurement called meters squared. \.br\ ? \.br\ For example, for a person who is 1.75 m tall, the meters squared measurement is 1.75 m x 1.75 m, which is equal to 3.1 meters squared.\.br\ 3. \.br\ Divide the number of kilograms (your weight) by the meters squared number. In this example: 70 ? 3.1 = 22.6. This is your BMI.\.br\ What do the results mean?\.br\ BMI charts are used to identify whether you are underweight, normal weight, overweight, or obese. The following guidelines will be used:\.br\ ? \.br\ Underweight: BMI less than 18.5.\.br\ ? \.br\ Normal weight: BMI between 18.5 and 24.9.\.br\ ? \.br\ Overweight: BMI between 25 and 29.9.\.br\ ? \.br\ Obese: BMI of 30 or above.\.br\ Keep these notes in mind:\.br\ ? \.br\ Weight includes both fat and muscle, so someone with a muscular build, such as an athlete, may have a BMI that is higher than 24.9. In cases [facility] Family Medicine Office/Clini c Noteon 01-06-2023 Family Medicine Office/Clinic Note HPI Staff Nataly is a 47 year old male presenting for 2 week follow up htn and hypogonadism BRENT added metoprolol for the BP labs done 12/27 Patient is here for follow up on hypertension. How often are you checking your blood pressure? random _ What are your average readings? at home 144/95 this am Yearly BMP: 12/27/22 flu: refused questions/concerns: testosterone needs refilled if you'll give it back to him History of Present Illness - Here for follow up on Test levels. - Lower now than before - Feels very weak - BP is better. Physical Exam Vitals & Measurements T: 36.6 ?C(Oral) HR: 70(Peripheral) RR: 16 BP: 120/88 SpO2: 97% HT: 69 in HT: 175.3 cm WT: 112.7 kg WT: 247.94 lb BMI: 36.67 General: alert, no acute distress ENMT: oral mucosa moist, Cardiovascular: regular rate and rhythm, normal peripheral perfusion Respiratory: Lungs CTA, respirations non labored Extremities: no deformity, no trauma Neurological: oriented x 4, LOC appropriate for age, CN II-XII intact, motor strength equal & normal bilaterally, speech normal Abdomen: Soft, Nontender, Non-distended, + BS Assessment/Plan 1. HTN (hypertension) (I10: Essential (primary) hypertension) - At goal at this time. - Will recheck with increased Test dosing in 1 month Ordered: Body Mass Index (BMI) documented 3008F Current tobacco non-user 1036F Influenza immunization status assessed 1030F Most recent diastolic blood pressure >=90 mm Hg 3080F Most recent systolic blood pressure >= 140 mm Hg 3077F 2. Hypogonadism in male (E29.1: Testicular hypofunction) - Increase test to 200mg every two weeks - Recheck in 3 months Ordered: Body Mass Index (BMI) documented 3008F Current tobacco non-user 1036F Influenza immunization status assessed 1030F Most recent diastolic blood pressure >=90 mm Hg 3080F Most recent systolic blood pressure >= 140 mm Hg 3077F 3. Former smoker (Z87.891: Personal history of nicotine dependence) - Please continue to not smoke Ordered: Body Mass Index (BMI) documented 3008F Current tobacco non-user 1036F Influenza immunization status assessed 1030F Most recent diastolic blood pressure >=90 mm Hg 3080F Most recent systolic blood pressure >= 140 mm Hg 3077F 4. Hypothyroidism, unspecified type (E03.9: Hypothyroidism, unspecified) - Will check at next lab drawl 5. Hyperglycemia (R73.9: Hyperglycemia, unspecified) - Will check at next lab drawl. 6. Class 1 obesity due to excess calories in adult (E66.09: Other obesity due to excess calories) - Diet and exercise advised Ordered: Body Mass Index (BMI) documented 3008F Current tobacco non-user 1036F Influenza immunization status assessed 1030F Most recent diastolic blood pressure >=90 mm Hg 3080F Most recent systolic blood pressure >= 140 mm Hg 3077F 7. BMI 36.0-36.9,adult (Z68.36: Body mass index [BMI] 36.0-36.9, adult) - BMI education given. Ordered: Body Mass Index (BMI) documented 3008F Current tobacco non-user 1036F Influenza immunization status assessed 1030F Most recent diastolic blood pressure >=90 mm Hg 3080F Most recent systolic blood pressure >= 140 mm Hg 3077F Orders: testosterone, 200 mg = 1 mL, IntraMuscular, q2wk, # 3 mL, Refills(s) 0, Pharmacy: [facility], 175.3, cm, 01/06/23 7:42:00 EST, Height/Length Dosing, 112.7, kg, 01/06/23 7:42:00 EST, Weight Dosing Follow-up No qualifying data available Patient Education BMI for Adults Problem List/Past Medical History Ongoing Allergic rhinitis Arthritis Barretts esophagus Bipolar 1 disorder Gastroesophageal reflux disease without esophagitis Gout HTN (hypertension) Hyperglycemia Hypogonadism in male Hypothyroidism Migraine without aura and without status migrainosus, not intractable Mild persistent asthma with status asthmaticus Mixed hyperlipidemia MORROW (nonalcoholic steatohepatitis) Obstructive sleep apnea Primary hypertension Schatzki's ring Subclinical hypothyroidism Transaminitis Vitamin D deficiency Historical No qualifying data Procedure/Surgical History Colonoscopy, EGD (esophagogastroduode noscopy) and closure of duodenal fistula. Medications albuterol 0.083% Inh Cecille 3 mL, 2.5 mg= 3 mL, NEB, q4hr allopurinol 100 mg Tab, 100 mg= 1 tab(s), Oral, BID amLODIPine 10 mg Tab, 10 mg= 1 tab(s), Oral, Daily, 1 refills budesonide 0.5 mg/2 mL Inh Susp, BID colchicine 0.6 mg Tab, 0.6 mg= 1 tab(s), Oral, q1hr, PRN, Not taking DULoxetine 40 mg oral delayed release capsule, 40 mg= 1 cap(s), Oral, Daily Fasenra Pen 30 mg/mL subcutaneous solution, 30 mg, SubCutaneous, q4wk hydrochlorothiazide 25 mg Tab, 25 mg= 1 tab(s), Oral, Daily, 1 refills Lamictal 100 mg Tab, 100 mg= 1 tab(s), Oral, Daily losartan 100 mg Tab, See Instructions metoprolol 25 mg ER Tab, 25 mg= 1 tab(s), Oral, Daily omeprazole 40 mg Cap-DR, See Instructions, 1 refills Spiriva Respimat 1.25 mcg/inh inhalation aerosol, 2 puff(s), Inhal (more content not included)... Normal [facility] Comment on above: Result Comment: Elec tronically Signed By: Leandro RENDON, Akil Koo\.br\Date and Time Signed: 01/06/23 08:22 EST Patient Educationon 01-07-20 Patient Education Nutrition BMI for Adults What is BMI? Body mass index (BMI) is a number that is calculated from a person's weight and height. BMI can help estimate how much of a person's weight is composed of fat. BMI does not measure body fat directly. Rather, it is an alternative to procedures that directly measure body fat, which can be difficult and expensive. BMI can help identify people who may be at higher risk for certain medical problems. What are BMI measurements used for? BMI is used as a screening tool to identify possible weight problems. It helps determine whether a person is obese, overweight, a healthy weight, or underweight. BMI is useful for: ? Identifying a weight problem that may be related to a medical condition or may increase the risk for medical problems. ? Promoting changes, such as changes in diet and exercise, to help reach a healthy weight. BMI screening can be repeated to see if these changes are working. How is BMI calculated? BMI involves measuring your weight in relation to your height. Both height and weight are measured, and the BMI is calculated from those numbers. This can be done either in [place] or metric measurements. Note that charts and online BMI calculators are available to help you find your BMI quickly and easily without having to do these calculations yourself. To calculate your BMI in [place] measurements: 1. Measure your weight in pounds (lb). 2. Multiply the number of pounds by 703. ? For example, for a person who weighs 180 lb, multiply that number by 703, which equals 126,540. 3. Measure your height in inches. Then multiply that number by itself to get a measurement called inches squared. ? For example, for a person who is 70 inches tall, the inches squared measurement is 70 inches x 70 inches, which equals 4,900 inches squared. 4. Divide the total from step 2 (number of lb x 703) by the total from step 3 (inches squared): 126,540 ? 4,900 = 25.8. This is your BMI. To calculate your BMI in metric measurements: 1. Measure your weight in kilograms (kg). 2. Measure your height in meters (m). Then multiply that number by itself to get a measurement called meters squared. ? For example, for a person who is 1.75 m tall, the meters squared measurement is 1.75 m x 1.75 m, which is equal to 3.1 meters squared. 3. Divide the number of kilograms (your weight) by the meters squared number. In this example: 70 ? 3.1 = 22.6. This is your BMI. What do the results mean? BMI charts are used to identify whether you are underweight, normal weight, overweight, or obese. The following guidelines will be used: ? Underweight: BMI less than 18.5. ? Normal weight: BMI between 18.5 and 24.9. ? Overweight: BMI between 25 and 29.9. ? Obese: BMI of 30 or above. Keep these notes in mind: ? Weight includes both fat and muscle, so someone with a muscular build, such as an athlete, may have a BMI that is higher than 24.9. In cases like these, BMI is not an accurate measure of body fat. ? To determine if excess body fat is the cause of a BMI of 25 or higher, further assessments may need to be done by a health care provider. ? BMI is usually interpreted in the same way for men and women. Where to find more information For more information about BMI, including tools to quickly calculate your BMI, go to these websites: ? Centers for Disease Control and Prevention: www.cdc.gov ? [place] Heart Association: www.heart.org ? National Heart, Lung, and Blood Be[place]: www.nhlbi.nih.gov Summary ? Body mass index (BMI) is a number that is calculated from a person's weight and height. ? BMI may help estimate how much of a person's weight is composed of fat. BMI can help identify those who may be at higher risk for certain medical problems. ? BMI can be measured using [place] measurements or metric measurements. ? BMI charts are used to identify whether you are underweight, normal weight, overweight, or obese. This information is not intended to replace advice given to you by your health care provider. Make sure you discuss any questions you have with your health care provider. Document Revised: 10/17/2019 Document Reviewed: 08/24/2019 [employer] Patient Education ? 2022 [employer]. Normal [facility] Testosterone F&Ton 3 Testosterone [Mass/Vol] 55 ng/dL Low 264-916 [facility] Comment on above: Result Comment: Adul t male reference interval is based on a population of healthy nonobese males (BMI <30) between 19 and 39 years old. lisa Meza.al. JCEM 2017,102;8295-8058. PMID: [id number]. Performed By: #### 2 906250, [id number], [id number], [id number] ####[facility] [address] [place] [address] Testosterone Free [Mass/Vol] 4.0 pg/mL Low 6.8-21.5 [facility] Comment on above: Result Comment: Perf ormed at: [facility] [id number] [place], [place] [id number] PhD Brook Rios Performed at: [facility] [address] [id number] MD Shane Alvarado Performed By: #### 2 773400, [id number], [id number], [id number] ####[facility] [address] [place] [address] CMPon 12-27-2022 Albumin [Mass/Vol] 4.4 g/dL Normal 3.3-5.0 [facility] Comment on above: Performed By: #### 2 517507, [id number], [id number], [id number] ####[facility] [address] [place] [address] Albumin/Globulin (S) [Mass conc ratio] 1.2 Normal 1.1-2.2 [facility] Comment on above: Performed By: #### 2 973667, [id number], [id number], [id number] ####[facility] [address] [place] [address] ALP [Catalytic activity/Vol] 81 Int._Unit/L Normal 21-98 [facility] Comment on above: Performed By: #### 2 204049, [id number], 20864249, [id number] ####[facility] [address] [place] [address] ALT No additional P-5'-P [Catalytic activity/Vol] 56 Int._Unit/L High 6-46 [facility] Comment on above: Performed By: #### 2 527951, [id number], 10496853, [id number] ####[facility] [address] [place] [address] Anion gap [Moles/Vol] 14 mmol/L Normal 6-16 [facility] Comment on above: Performed By: #### 2 046443, [id number], 07040044, [id number] ####[facility] [address] [place] [address] AST [Catalytic activity/Vol] 42 Int._Unit/L Normal 5-43 [facility] Comment on above: Performed By: #### 2 081732, [id number], 39392280, 03786866 ####[facility] [address] [place] [address] Bilirubin [Mass/Vol] 0.5 mg/dL Normal 0.0-1.1 [facility] Comment on above: Performed By: #### 2 949424, [id number], 57837153, [id number] ####[facility] [address] [place] [address] Calcium [Mass/Vol] 9.7 mg/dL Normal 8.9-11.1 [facility] Comment on above: Performed By: #### 2 404295, [id number], 05946677, [id number] ####[facility] [address] [place] [address] Chloride [Moles/Vol] 99 mmol/L Low 101-111 [facility] Comment on above: Performed By: #### 2 441489, [id number], 11699739, 50595487 ####[facility] [address] [place] [address] CO2 [Moles/Vol] 30 mmol/L Normal 21-31 [facility] Comment on above: Performed By: #### 2 678483, [id number], 38930201, 57663148 ####[facility] [address] [place] [address] Creatinine [Mass/Vol] 1.4 mg/dL High 0.5-1.3 [facility] Comment on above: Performed By: #### 2 232914, [id number], 92357628, 21625343 ####[facility] [address] [place] [address] Globulin (S) [Mass/Vol] 3.7 g/dL Normal 1.4-4.0 [facility] Comment on above: Performed By: #### 2 541099, 709195086, 00746248, 47238117 ####[facility] [address] [place] [address] Glucose [Mass/Vol] 131 mg/dL Normal 55-199 [facility] Comment on above: Result Comment: If t his glucose result represents a fasting glucose, interpretation should refer to the following reference range: 55-99 mg/dL Performed By: #### 2 002818, [id number], 30501418, [id number] ####[facility] [address] [place] [address] Potassium [Moles/Vol] 3.6 mmol/L Normal 3.5-5.3 [facility] Comment on above: Performed By: #### 2 124448, 574474722, 96853041, 01937236 ####[facility] [address] [place] [address] Protein [Mass/Vol] 8.1 g/dL High 6.0-7.8 [facility] Comment on above: Performed By: #### 2 782594, 025539482, 66093372, 67736804 ####[facility] [address] [place] [address] Sodium [Moles/Vol] 139 mmol/L Normal 135-145 [facility] Comment on above: Performed By: #### 2 705240, 510803417, 63174896, 87853705 ####[facility] [address] [place] [address] Urea nitrogen [Mass/Vol] 11 mg/dL Normal 5-21 [facility] Comment on above: Performed By: #### 2 410306, [id number], 49047014, 54792324 ####[facility] [address] [place] [address] Urea nitrogen/Creatinine [Mass ratio] 8 No Units Low - [facility] Comment on above: Performed By: #### 2 030557, [id number], 24984627, 25834562 ####[facility] [address] [place] [address] YktL2xes 12-27-2022 HbA1c (Bld) [Mass fraction] 5.9 % Normal <=5.9 [facility] Comment on above: Performed By: #### 2 463830, [id number], 59814235, 55658688 ####[facility] [address] [place] [address] eGFRon 12-27-2022 GFR/1.73 sq M.predicted among non-blacks MDRD (S/P/Bld) [Vol rate/Area] 62 mL/min/1.73 m2 Normal >=59 [facility] Comment on above: Order Comment: Order added by Discern Expert. Result Comment: Center Machine Set Up Operator ambreen kidney disease could be indicated at eGFR's of less than 60 mL/min/1.73m2. Kidney failure is indicated at less than 15 mL/min/1.73m2. Performed By: #### 2 139094, [id number], 25708249, 36529513 ####[facility] [address] [place] [address] Pre-Certification Formon Pre-Certification Form [id number]# 1.00TIFF Normal [facility] Ambulatory Visit Summaryon 02-22-2022 Ambulatory Visit Summary NATALY WILD :1975 Visit Date:12/23/2022 Ambulatory Visit Instructions Your Diagnosis Hypogonadism in male HTN (hypertension) BMI 36.0-36.9,adult Class 1 obesity due to excess calories in adult Nonsmoker Hyperglycemia Transaminitis Mixed hyperlipidemia Gastroesophageal reflux disease without esophagitis Obstructive sleep apnea Your Care Team Attending Physician - Akil Reeves MD Primary Care Physician - Akil Reeves MD This Is Your Medications List allopurinol (allopurinol 100 mg Tab) colchicine (colchicine 0.6 mg Tab) metoprolol (metoprolol 25 mg ER Tab) Contact prescribing physician if questions or concerns Misc Prescription (Syringes) albuterol (Ventolin HFA 90 mcg/inh Aerosol-Adpt) albuterol (albuterol 0.083% Inh Cecille 3 mL) amlodipine (amLODIPine 10 mg Tab) benralizumab (Fasenra Pen 30 mg/mL subcutaneous solution) budesonide (budesonide 0.5 mg/2 mL Inh Susp) budesonide-formotero l (Symbicort 160/4.5 inhalation aerosol with adapter) duloxetine (DULoxetine 40 mg oral delayed release capsule) hydrochlorothiazide (hydrochlorothiazide 25 mg Tab) lamotrigine (Lamictal 100 mg Tab) losartan (losartan 100 mg Tab) omeprazole (omeprazole 40 mg Cap-DR) testosterone (testosterone cypionate 200 mg/mL IM Cecille) tiotropium (Spiriva Respimat 1.25 mcg/inh inhalation aerosol) topiramate (topiramate 100 mg Tab) [Image Removed: STOP]Stop taking these medications aspirin (aspirin 81 mg Oral EC Tab) Procedures Performed Colonoscopy, EGD (esophagogastroduode noscopy) and closure of duodenal fistula. Discharge Vitals Temperature (Oral) 36.6 ?C Heart Rate (Peripheral) 76 Blood Pressure 138/78 Height 69 in Height 175.5 cm Weight 246.84 lb Weight 112.2 kg BMI 36.43 What to do next Scheduled Follow-Up Appointments Tuesday 8:20 AM EST With: Where: [facility] Invalid Interpretation Code [address] [place] [address]- \.br\ 2023 7:00 AM EST \.br\ With: Akil Reeves MD\.br\ Where: [facility] Ambulatory Visit Summary NATALY WILD :1975 Visit Date:12/23/2022 Ambulatory Visit Instructions Your Diagnosis Hypogonadism in male HTN (hypertension) BMI 36.0-36.9,adult Class 1 obesity due to excess calories in adult Nonsmoker Hyperglycemia Mixed hyperlipidemia Gastroesophageal reflux disease without esophagitis Obstructive sleep apnea Your Care Team Attending Physician - Akil Reeves MD Primary Care Physician - Akil Reeves MD This Is Your Medications List [facility] Prescription (Syringes) albuterol (Ventolin HFA 90 mcg/inh Aerosol-Adpt) albuterol (albuterol 0.083% Inh Cecille 3 mL) amlodipine (amLODIPine 10 mg Tab) aspirin (aspirin 81 mg Oral EC Tab) benralizumab (Fasenra Pen 30 mg/mL subcutaneous solution) budesonide (budesonide 0.5 mg/2 mL Inh Susp) budesonide-formotero l (Symbicort 160/4.5 inhalation aerosol with adapter) duloxetine (DULoxetine 40 mg oral delayed release capsule) hydrochlorothiazide (hydrochlorothiazide 25 mg Tab) lamotrigine (Lamictal 100 mg Tab) losartan (losartan 100 mg Tab) omeprazole (omeprazole 40 mg Cap-DR) testosterone (testosterone cypionate 200 mg/mL IM Cecille) tiotropium (Spiriva Respimat 1.25 mcg/inh inhalation aerosol) topiramate (topiramate 100 mg Tab) Procedures Performed Colonoscopy, EGD (esophagogastroduode noscopy) and closure of duodenal fistula. Discharge Vitals Temperature (Oral) 36.6 ?C Heart Rate (Peripheral) 76 Blood Pressure 138/78 Height 69 in Height 175.5 cm Weight 246.84 lb Weight 112.2 kg BMI 36.43 What to do next Scheduled Follow-Up Appointments Tuesday 8:20 AM EST With: Where: [facility] Invalid Interpretation Code [address] [place] [address]- \.br\ 2023 7:00 AM EST \.br\ With: Akil Reeves MD\.br\ Where: [facility] Family Medicine Office/Clini c Noteon 12-23-2022 Family Medicine Office/Clinic Note HPI Staff Nataly is a 47 year old male presenting for 3 month follow up htn and hypogonadism Needs test levels checked says need to postpone because he's dehydrated Patient is here for follow up on hypertension. How often are you checking your blood pressure? occasionally What are your average readings? 144/103 this morning first time he's checked it in a month _ Yearly BMP: 08/05/22 flu: refused questions/concerns: gout flare up and discuss testosterone would like to do twice a month instead of once History of Present Illness - See staff HPI Review of Systems PHQ Score Initial Depression Screen Score: 2 SCORE Physical Exam Vitals & Measurements T: 36.6 ?C(Oral) HR: 76(Peripheral) BP: 138/78 SpO2: 952% HT: 69 in HT: 175.5 cm WT: 112.2 kg WT: 246.84 lb BMI: 36.43 General: alert, no acute distress ENMT: oral mucosa moist, Cardiovascular: regular rate and rhythm, normal peripheral perfusion Respiratory: Lungs CTA, respirations non labored Extremities: no deformity, no trauma Neurological: oriented x 4, LOC appropriate for age, CN II-XII intact, motor strength equal & normal bilaterally, speech normal Abdomen: Soft, Nontender, Non-distended, + BS Assessment/Plan 1. Hypogonadism in male (E29.1: Testicular hypofunction) - Will recheck labs and adjust meds as needed Ordered: Body Mass Index (BMI) documented 3008F Comprehensive Metabolic Panel Current tobacco non-user 1036F Depression Screening Negative 3352F HgbA1c Influenza immunization status assessed 1030F Most recent diastolic blood pressure >=90 mm Hg 3080F Most recent systolic blood pressure >= 140 mm Hg 3077F Testosterone F&T 2. HTN (hypertension) (I10: Essential (primary) hypertension) - Pt is boderline today. - Want a little more room to adjust testosterone if needed - I will start Metoprolol to help - Follow up in 2 weeks Ordered: Body Mass Index (BMI) documented 3008F Comprehensive Metabolic Panel Current tobacco non-user 1036F Depression Screening Negative 3352F HgbA1c Influenza immunization status assessed 1030F Most recent diastolic blood pressure >=90 mm Hg 3080F Most recent systolic blood pressure >= 140 mm Hg 3077F Testosterone F&T 3. BMI 36.0-36.9,adult (Z68.36: Body mass index [BMI] 36.0-36.9, adult) - BMI education uploaded Ordered: Body Mass Index (BMI) documented 3008F Comprehensive Metabolic Panel Current tobacco non-user 1036F Depression Screening Negative 3352F HgbA1c Influenza immunization status assessed 1030F Most recent diastolic blood pressure >=90 mm Hg 3080F Most recent systolic blood pressure >= 140 mm Hg 3077F Testosterone F&T 4. Class 1 obesity due to excess calories in adult (E66.09: Other obesity due to excess calories) - Diet and exercise advised Ordered: Body Mass Index (BMI) documented 3008F Comprehensive Metabolic Panel Current tobacco non-user 1036F Depression Screening Negative 3352F HgbA1c Influenza immunization status assessed 1030F Most recent diastolic blood pressure >=90 mm Hg 3080F Most recent systolic blood pressure >= 140 mm Hg 3077F Testosterone F&T 5. Nonsmoker (Z78.9: Other specified health status) - Please continue to not smoke Ordered: Body Mass Index (BMI) documented 3008F Comprehensive Metabolic Panel Current tobacco non-user 1036F Depression Screening Negative 3352F HgbA1c Influenza immunization status assessed 1030F Most recent diastolic blood pressure >=90 mm Hg 3080F Most recent systolic blood pressure >= 140 mm Hg 3077F Testosterone F&T 6. Hyperglycemia (R73.9: Hyperglycemia, unspecified) - Will check A1c. Ordered: Comprehensive Metabolic Panel HgbA1c Testosterone F&T 7. Transaminitis (R74.01: Elevation of levels of liver transaminase levels) - Will recheck today. Ordered: Comprehensive Metabolic Panel 8. Mixed hyperlipidemia (E78.2: Mixed hyperlipidemia) - Will monitor. - Will recheck in 6 months. Ordered: Comprehensive Metabolic Panel HgbA1c Testosterone F&T 9. Gastroesophageal reflux disease without esophagitis (K21.9: Gastro-esophageal reflux disease without esophagitis) - No issues at this time Ordered: Comprehensive Metabolic Panel HgbA1c Testosterone F&T 10. Obstructive sleep apnea (G47.33: Obstructive sleep apnea (adult) (pediatric)) - Continues to use CPAP. Ordered: Comprehensive Metabolic Panel HgbA1c Testosterone F&T Orders: allopurinol, 100 mg = 1 tab(s), Oral, BID, # 180 tab(s), Refills(s) 0, Pharmacy: [facility], 175.5, cm, 12/23/22 7:40:00 EST, Height/Length Dosing, 112.2, kg, 12/23/22 7:40:00 EST, Weight Dosing colchicine, 0.6 mg = 1 tab(s), Oral, q1hr, PRN for gout pain, at the first sign of a gout flare followed by 0.6 mg one hour later. No more than 3 for the first day. If you need to repeat, do not repeat for at least 3 days., # 10 tab(s), Refills(s) 0, [facility]: [facility] metoprolol, 25 mg = 1 tab(s), Oral, Daily, # 90 (more content not included)... Normal [facility] Comment on above: Result Comment: Elec tronically Signed By: Leandro RENDON, Akil Koo\.br\Date and Time Signed: 12/23/22 08:16 EST Patient Educationon 12-24-19 Patient Education Nutrition BMI for Adults What is BMI? Body mass index (BMI) is a number that is calculated from a person's weight and height. BMI can help estimate how much of a person's weight is composed of fat. BMI does not measure body fat directly. Rather, it is an alternative to procedures that directly measure body fat, which can be difficult and expensive. BMI can help identify people who may be at higher risk for certain medical problems. What are BMI measurements used for? BMI is used as a screening tool to identify possible weight problems. It helps determine whether a person is obese, overweight, a healthy weight, or underweight. BMI is useful for: ? Identifying a weight problem that may be related to a medical condition or may increase the risk for medical problems. ? Promoting changes, such as changes in diet and exercise, to help reach a healthy weight. BMI screening can be repeated to see if these changes are working. How is BMI calculated? BMI involves measuring your weight in relation to your height. Both height and weight are measured, and the BMI is calculated from those numbers. This can be done either in [place] or metric measurements. Note that charts and online BMI calculators are available to help you find your BMI quickly and easily without having to do these calculations yourself. To calculate your BMI in [place] measurements: 1. Measure your weight in pounds (lb). 2. Multiply the number of pounds by 703. ? For example, for a person who weighs 180 lb, multiply that number by 703, which equals 126,540. 3. Measure your height in inches. Then multiply that number by itself to get a measurement called inches squared. ? For example, for a person who is 70 inches tall, the inches squared measurement is 70 inches x 70 inches, which equals 4,900 inches squared. 4. Divide the total from step 2 (number of lb x 703) by the total from step 3 (inches squared): 126,540 ? 4,900 = 25.8. This is your BMI. To calculate your BMI in metric measurements: 1. Measure your weight in kilograms (kg). 2. Measure your height in meters (m). Then multiply that number by itself to get a measurement called meters squared. ? For example, for a person who is 1.75 m tall, the meters squared measurement is 1.75 m x 1.75 m, which is equal to 3.1 meters squared. 3. Divide the number of kilograms (your weight) by the meters squared number. In this example: 70 ? 3.1 = 22.6. This is your BMI. What do the results mean? BMI charts are used to identify whether you are underweight, normal weight, overweight, or obese. The following guidelines will be used: ? Underweight: BMI less than 18.5. ? Normal weight: BMI between 18.5 and 24.9. ? Overweight: BMI between 25 and 29.9. ? Obese: BMI of 30 or above. Keep these notes in mind: ? Weight includes both fat and muscle, so someone with a muscular build, such as an athlete, may have a BMI that is higher than 24.9. In cases like these, BMI is not an accurate measure of body fat. ? To determine if excess body fat is the cause of a BMI of 25 or higher, further assessments may need to be done by a health care provider. ? BMI is usually interpreted in the same way for men and women. Where to find more information For more information about BMI, including tools to quickly calculate your BMI, go to these websites: ? Centers for Disease Control and Prevention: www.cdc.gov ? [place] [employer]: www.heart.org ? National Heart, Lung, and Blood [employer]: www.nhlbi.nih.gov Summary ? Body mass index (BMI) is a number that is calculated from a person's weight and height. ? BMI may help estimate how much of a person's weight is composed of fat. BMI can help identify those who may be at higher risk for certain medical problems. ? BMI can be measured using [place] measurements or metric measurements. ? BMI charts are used to identify whether you are underweight, normal weight, overweight, or obese. This information is not intended to replace advice given to you by your health care provider. Make sure you discuss any questions you have with your health care provider. Document Revised: 10/17/2019 Document Reviewed: 08/24/2019 [employer] Patient Education ? 2022 [employer]. [facility] Consultation Noteon 12-01-19 23 Consultation Note [id number] #[id number] [facility] Family Medicine Office/Clini c Noteon 09-09-2022 Family Medicine Office/Clinic Note Chief Complaint follow up htn HPI Staff patient presents for 2 week follow up htn Patient is here for follow up on hypertension. How often are you checking your blood pressure? doesn't check at home _ What are your average readings? n/a_ Do you have any of the following symptoms? Chest Pain? no Palpitations? no DOSS/SOB? no Headache? no Peripheral Edema? no Light Headedness? no Yearly BMP: 08/05/22_ Refill needed?: no questions/concerns: feels good since starting the shot would like to get the testosterone back History of Present Illness - Here for follow up - BP has improved - Still not at goal. - Wants test back Physical Exam Vitals & Measurements T: 37.2 ?C(Temporal Artery) HR: 68(Peripheral) RR: 16 BP: 142/88 SpO2: 95% HT: 69 in HT: 175.5 cm WT: 113.4 kg WT: 249.48 lb BMI: 36.82 General: alert, no acute distress ENMT: oral mucosa moist, Cardiovascular: regular rate and rhythm, normal peripheral perfusion Respiratory: Lungs CTA, respirations non labored Extremities: no deformity, no trauma Neurological: oriented x 4, LOC appropriate for age, CN II-XII intact, motor strength equal & normal bilaterally, speech normal Abdomen: Soft, Nontender, Non-distended, + BS Assessment/Plan 1. Hypogonadism in male (E29.1: Testicular hypofunction) - Will order Test today. - Will review levels in 3 months 2. Primary hypertension (I10: Essential (primary) hypertension) - Slightly elevated - Add HCTZ today - Discussed how anxiety could be a cause in an elevated BP. 3. BMI 36.0-36.9,adult (Z68.36: Body mass index [BMI] 36.0-36.9, adult) - BMI education given Ordered: Body Mass Index (BMI) documented 3008F Current tobacco non-user 1036F Most recent diastolic blood pressure >=90 mm Hg 3080F Most recent systolic blood pressure >= 140 mm Hg 3077F 4. Class 1 obesity due to excess calories in adult (E66.09: Other obesity due to excess calories) - As above. Ordered: Body Mass Index (BMI) documented 3008F Current tobacco non-user 1036F Most recent diastolic blood pressure >=90 mm Hg 3080F Most recent systolic blood pressure >= 140 mm Hg 3077F Orders: hydrochlorothiazide, 25 mg = 1 tab(s), Oral, Daily, # 90 tab(s), Refills(s) 0, Pharmacy: [facility], 175.5, cm, 09/09/22 8:29:00 EDT, Height/Length Dosing, 113.4, kg, 09/09/22 8:29:00 EDT, Weight Dosing testosterone, 200 mg = 1 mL, IntraMuscular, q4wk, # 3 mL, Refills(s) 0, Pharmacy: [facility], 175.5, cm, 09/09/22 8:29:00 EDT, Height/Length Dosing, 113.4, kg, 09/09/22 8:29:00 EDT, Weight Dosing Follow-up No qualifying data available Problem List/Past Medical History Ongoing Allergic rhinitis Arthritis Barretts esophagus Bipolar 1 disorder Gastroesophageal reflux disease without esophagitis Gout Hypogonadism in male Hypothyroidism Migraine without aura and without status migrainosus, not intractable Mild persistent asthma with status asthmaticus Mixed hyperlipidemia MORROW (nonalcoholic steatohepatitis) Obstructive sleep apnea Primary hypertension Schatzki's ring Subclinical hypothyroidism Vitamin D deficiency Historical No qualifying data Procedure/Surgical History Colonoscopy, EGD (esophagogastroduode noscopy) and closure of duodenal fistula. Medications albuterol 0.083% Inh Cecille 3 mL, 2.5 mg= 3 mL, NEB, q4hr amLODIPine 10 mg Tab, 10 mg= 1 tab(s), Oral, Daily, 1 refills aspirin 81 mg Oral EC Tab, 81 mg= 1 tab(s), Oral, Daily DULoxetine 40 mg oral delayed release capsule, 40 mg= 1 cap(s), Oral, Daily Fasenra Pen 30 mg/mL subcutaneous solution, 30 mg, SubCutaneous, q4wk hydrochlorothiazide 25 mg Tab, 25 mg= 1 tab(s), Oral, Daily Lamictal 100 mg Tab, 100 mg= 1 tab(s), Oral, Daily losartan 100 mg Tab, 100 mg= 1 tab(s), Oral, Daily omeprazole 40 mg Cap-DR, See Instructions Spiriva Respimat 1.25 mcg/inh inhalation aerosol, 2 puff(s), Inhalation, Daily Symbicort 160/4.5 inhalation aerosol with adapter, 2 puff(s), Inhalation, BID testosterone cypionate 200 mg/mL IM Cecille, 200 mg= 1 mL, IntraMuscular, q4wk topiramate 100 mg Tab, 100 mg= 1 tab(s), Oral, Bedtime Ventolin HFA 90 mcg/inh Aerosol-Adpt, 2 puff(s), Inhalation, q4hr Allergies Lexapro (Unknown) Social History Tobacco Former smoker, quit more than 30 days ago Tobacco Use:. Never Smokeless Tobacco Use:. Cigarettes, 09/09/2022 Family History Alcoholism: Father. Hypertension: Mother. Stroke: Mother. [facility] Comment on above: Result Comment: Elec tronically Signed By: Leandro RENDON, Akil Gordon.br\Date and Time Signed: 09/09/22 09:07 EDT Medication Consenton 023 Medication Consent [id number]. [id number] #1.00CD:127 [facility] Consultation Noteon 09-01-19 Consultation Note 104.37. [id number] #1.00CD:127 [facility] Consultation Note [id number] #1.00CD:127 [facility] Family Medicine Office/Clini c Noteon 08-30-2022 Family Medicine Office/Clinic Note Chief Complaint follow up htn HPI Staff Nataly is a 47 year old male presenting to the office for a 3 week follow up for blood pressure. Recent labs 08/05/22 Patient is here for follow up on hypertension. How often are you checking your blood pressure?daily _ What are your average readings? 168-169 unsure of diastolic Are you compliant with your diet? yes Do you exercise? no Are you compliant with your medications?yes Difficulty affording your medications? no Do you have side effects from the medication? None Do you have any of the following symptoms? Chest Pain? no Palpitations? no DOSS/SOB? no Headache? no Peripheral Edema? no Light Headedness? no questions/concerns: none History of Present Illness Nataly Wild is a 47-year-old male who presents today for a follow-up evaluation. The patient's blood pressure is elevated today. He denies any family history of hypertension. He is prescribed with losartan 100 mg and amlodipine 10 mg. He has not been taking the amlodipine. His systolic blood pressure range is usually around 168 to 169 mmHg. He would like his testosterone medication back due to fatigue and low energy. His last testosterone labs were done last month. He had a razor burn when he shaved last night. He does not shave every day. He goes 1 to 2 weeks without shaving. He has had 3 to 4 Laila tea today. He reports being severely fatigued. He has undergone a sleep apnea test and was confirmed to have sleep apnea. He is using his CPAP. He just got it within the last couple of months. He did not sleep well last night. He only has 1.5 hours of sleep all night. He normally gets about 4 hours of sleep. This was even before the testosterone was taken. 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 Physical Exam Vitals & Measurements T: 36.7 ?C(Oral) HR: 84(Peripheral) RR: 16 BP: 160/110 SpO2: 92% HT: 69 in HT: 175.5 cm WT: 111.2 kg WT: 244.64 lb BMI: 36.1 General: alert, no acute distress Cardiovascular: regular rate and rhythm, normal peripheral perfusion Respiratory: Lungs CTA, respirations non labored Extremities: no deformity, no trauma Neurological: oriented x 4, LOC appropriate for age, CN II-XII intact, motor strength equal & normal bilaterally, speech normal Assessment/Plan 1. Primary hypertension (I10: Essential (primary) hypertension) The patient's blood pressure is much higher today. It does improve on recheck, but patient was supposed to stay on both the losartan and the Norvasc. However, he only went with the losartan, so we will encourage the patient to go back on both. We will send in the prescription right now. We will see the patient back in 2 weeks after starting it and we will reevaluate the need for further blood pressure medicines after this. 2. Bipolar 1 disorder (F31.9: Bipolar disorder, unspecified) Patient is doing well. Some of this high blood pressure may be due to not having his bipolar completely controlled and the anxiety that he has. We will try to continue to work through that. 3. Hypogonadism in male (E29.1: Testicular hypofunction) Patient is really wanting his testosterone back. I would like to give the patient his testosterone, however, the concerns with increasing his blood pressure with the testosterone is why I am holding off at this time. 4. Hypothyroidism, unspecified type (E03.9: Hypothyroidism, unspecified) TSH is elevated, but T4 is within normal limits. For this, we will just continue to monitor, and we will address soon. 5. Gastroesophageal reflux disease without esophagitis (K21.9: Gastro-esophageal reflux disease without esophagitis) Controlled at this time. Continue medications. 6. BMI 36.0-36.9,adult (Z68.36: Body mass index [BMI] 36.0-36.9, adult) BMI education given. 7. Class 1 obesity due to excess calories in adult (E66.09: Other obesity due to excess calories) As above. 8. Subclinical hypothyroidism (E03.8: Other specified hypothyroidism) We will see the patient back in 2 weeks for a recheck. Portions of this record may have been created with voice recognition artificial intelligence software, specifically [employer], [employer] and or [employer]. Substitutions may have occurred due to the inherent limitations of voice recognition and artificial intelligence software. ATTESTATION: Documentation services were performed after patient or guardian consented to allow [employer] to record this visit. REYNA poison information specialist and provider reviewed before signing. REYNA: Sandi Bedolla Follow-up No qualifying data available Problem List/Past Medical History Ongoing Allergic rhinitis Arthritis Barretts esophagus Bipolar 1 disorder Gastroesophageal reflux disease without esophagitis Gout Hypogonadism in male Hypothyroidism Ruddy (more content not included)... Normal [facility] Comment on above: Result Comment: Elec tronically Signed By: Akil Reeves MD\.br\Date and Time Signed: 08/30/22 08:49 EDT\.br\Electronically Co-Signed By: Sandi Bedolla B\.br\Date and Time Co-Signed: 08/26/22 12:56 EDT Ambulatory Visit Summaryon 0 08-26-2022 Ambulatory Visit Summary NATALY WILD :1975 Visit Date:08/26/2022 Ambulatory Visit Instructions Your Diagnosis Primary hypertension Bipolar 1 disorder Hypogonadism in male Hypothyroidism, unspecified type Gastroesophageal reflux disease without esophagitis BMI 36.0-36.9,adult Class 1 obesity due to excess calories in adult Subclinical hypothyroidism Your Care Team Attending Physician - Akil Reeves MD Primary Care Physician - Akil Reeves MD. This Is Your Medications List amlodipine (amLODIPine 10 mg Tab) Contact prescribing physician if questions or concerns albuterol (Ventolin HFA 90 mcg/inh Aerosol-Adpt) albuterol (albuterol 0.083% Inh Cecille 3 mL) aspirin (aspirin 81 mg Oral EC Tab) benralizumab (Fasenra Pen 30 mg/mL subcutaneous solution) budesonide-formotero l (Symbicort 160/4.5 inhalation aerosol with adapter) duloxetine (DULoxetine 40 mg oral delayed release capsule) lamotrigine (Lamictal 100 mg Tab) losartan (losartan 100 mg Tab) omeprazole (omeprazole 40 mg Cap-DR) tiotropium (Spiriva Respimat 1.25 mcg/inh inhalation aerosol) topiramate (topiramate 100 mg Tab) Procedures Performed Colonoscopy, EGD (esophagogastroduode noscopy) and closure of duodenal fistula. Discharge Vitals Temperature (Oral) 36.7 ?C Heart Rate (Peripheral) 84 Respiratory Rate 16 Blood Pressure 160/110 Height 69 in Height 175.5 cm Weight 244.64 lb Weight 111.2 kg BMI 36.1 What to do next Scheduled Follow-Up Appointments 2022 8:40 AM EDT With: Akil Reeves MD Where: [facility] Ambulatory Visit Summary NATALY WILD :1975 Visit Date:08/26/2022 Ambulatory Visit Instructions Your Diagnosis Primary hypertension Bipolar 1 disorder Hypothyroidism, unspecified type Gastroesophageal reflux disease without esophagitis BMI 36.0-36.9,adult Class 1 obesity due to excess calories in adult Your Care Team Attending Physician - Akil Reeves MD Primary Care Physician - Akil Reeves MD This Is Your Medications List amlodipine (amLODIPine 10 mg Tab) Contact prescribing physician if questions or concerns albuterol (Ventolin HFA 90 mcg/inh Aerosol-Adpt) albuterol (albuterol 0.083% Inh Cecille 3 mL) aspirin (aspirin 81 mg Oral EC Tab) benralizumab (Fasenra Pen 30 mg/mL subcutaneous solution) budesonide-formotero l (Symbicort 160/4.5 inhalation aerosol with adapter) duloxetine (DULoxetine 40 mg oral delayed release capsule) lamotrigine (Lamictal 100 mg Tab) losartan (losartan 100 mg Tab) omeprazole (omeprazole 40 mg Cap-DR) tiotropium (Spiriva Respimat 1.25 mcg/inh inhalation aerosol) topiramate (topiramate 100 mg Tab) Procedures Performed Colonoscopy, EGD (esophagogastroduode noscopy) and closure of duodenal fistula. Discharge Vitals Temperature (Oral) 36.7 ?C Heart Rate (Peripheral) 84 Respiratory Rate 16 Blood Pressure 200/112 Height 175.5 cm Height 69 in Weight 111.2 kg Weight 244.64 lb BMI 36.1 What to do next Scheduled Follow-Up Appointments 2022 8:40 AM EDT With: Akil Reeves MD Where: [facility] Testosterone F&Ton Testosterone [Mass/Vol] 156 ng/dL Low 264-916 [facility] Comment on above: Result Comment: Adul t male reference interval is based on a population of healthy nonobese males (BMI <30) between 19 and 39 years old. Susana, et.al. JCEM 2017,102;2713-9567. PMID: 32507762. Performed By: #### 1 [id number], 4000104, 70035726, 7646018, 65277006, 5603051, 8065745, 4769323, 3384746, 478592308, 50047034 ####[facility] [address] [place] [address] Testosterone Free [Mass/Vol] 4.6 pg/mL Low 6.8-21.5 [facility] Comment on above: Result Comment: Perf ormed at: [facility] [address] [id number] PhD Brook Rios Performed at: [facility] [address] [id number] MD Shane Alvarado Performed By: #### 1 6452878, 3167540, 10485769, 0553199, 35925703, 9757238, 9171410, 8508884, 7983839, 301054601, 50200256 ####[facility] [address] [place] [address] Ambulatory Visit Summaryon 0 08-05-2022 Ambulatory Visit Summary NATALY WILD :1975 Visit Date:08/05/2022 Ambulatory Visit Instructions Your Diagnosis Hallucinations Mixed hyperlipidemia Primary hypertension Vitamin D deficiency Hypogonadism in male Hypothyroidism, unspecified type Gastroesophageal reflux disease without esophagitis Gout, unspecified cause, unspecified chronicity, unspecified site Migraine without aura and without status migrainosus, not intractable Obstructive sleep apnea Mild persistent asthma with status asthmaticus BMI 36.0-36.9,adult Class 1 obesity due to excess calories in adult Bipolar 1 disorder Your Care Team Attending Physician - Akil Reeves MD Primary Care Physician - Akil Reeves MD This Is Your Medications List losartan (losartan 100 mg Tab) omeprazole (omeprazole 40 mg Cap-DR) Contact prescribing physician if questions or concerns albuterol (Ventolin HFA 90 mcg/inh Aerosol-Adpt) albuterol (albuterol 0.083% Inh Cecille 3 mL) amlodipine (amLODIPine 10 mg Tab) aspirin (aspirin 81 mg Oral EC Tab) benralizumab (Fasenra Pen 30 mg/mL subcutaneous solution) budesonide-formotero l (Symbicort 160/4.5 inhalation aerosol with adapter) duloxetine (DULoxetine 40 mg oral delayed release capsule) lamotrigine (Lamictal 100 mg Tab) tiotropium (Spiriva Respimat 1.25 mcg/inh inhalation aerosol) topiramate (topiramate 100 mg Tab) [Image Removed: STOP]Stop taking these medications celecoxib (celecoxib 400 mg oral capsule) colchicine (colchicine 0.6 mg Tab) ergocalciferol (Vitamin D2 50,000 intl units (1.25 mg) oral capsule) febuxostat (febuxostat 40 mg oral tablet) fluticasone (fluticasone propionate) gemfibrozil (gemfibrozil 600 mg Tab) levothyroxine (levothyroxine 200 mcg (0.2 mg) Tab) lisinopril (lisinopril 10 mg Tab) metoprolol (Metoprolol tartrate 25 mg Tab) montelukast (montelukast 10 mg Tab) testosterone (Depo-Testosterone 200 mg/mL intramuscular solution) Procedures Performed Colonoscopy, EGD (esophagogastroduode noscopy) and closure of duodenal fistula. Discharge Vitals Heart Rate (Peripheral) 78 Respiratory Rate 18 Blood Pressure 180/108 Height 175.26 cm Height 69 in Weight 110.9 kg Weight 243.98 lb BMI 36.1 What to do next Scheduled Follow-Up Appointments 2022 9:20 AM EDT With: Leandro RENDON, Akil Koo Where: [facility] [place] Normal [facility] Auto Diffon 08-05-2022 Basophils/100 WBC (Bld) 0.3 % Normal 0.0-2.0 [facility] Comment on above: Order Comment: Order Added by Discern Expert. Performed By: #### 1 [id number], 3114492, 52574071, 2309362, 45605680, 8323061, 7279974, 9531008, 9916783, 215589078, 10173664 ####[facility] [address] [place] [address] Basophils/Leukocyte s Auto (Bld) [Pure # fraction] 0.0 E9/L Normal 0.0-0.2 [facility] Comment on above: Order Comment: Order Added by Discern Expert. Performed By: #### 1 6772652, 4129507, 02778508, 4048219, 30072332, 7320644, 7212932, 1508426, 1007021, 707147972, 65672813 ####[facility] [address] [place] [address] Eosinophils/100 WBC (Bld) 0.3 % Normal 0.0-8.0 [facility] Comment on above: Order Comment: Order Added by Discern Expert. Performed By: #### 1 5375684, 4814437, 65599166, 6835048, 96891322, 8237920, 0402484, 8453905, 1117592, 290976234, 21343996 ####[address] [place] [address] Eosinophils/Leukocy jenifer Auto (Bld) [Pure # fraction] 0.0 E9/L Normal 0.0-0.5 [facility] Comment on above: Order Comment: Order Added by Discern Expert. Performed By: #### 1 1225187, 3385620, 60629582, 4969681, 66903038, 2898913, 9604719, 8870453, 3289337, 753658523, 87708363 ####[facility] [address] [place] [address] Lymphocytes/100 WBC (Bld) 26.9 % Normal 14.0-50.0 [facility] Comment on above: Order Comment: Order Added by Discern Expert. Performed By: #### 1 6279800, 6277988, 37325529, 7249163, 21727291, 3256991, 3569977, 7290086, 2184071, 692070858, 30570361 ####[facility] [address] [place] [address] Lymphocytes/Leukocy jenifer Auto (Bld) [Pure # fraction] 2.0 E9/L Normal 1.0-4.0 [facility] Comment on above: Order Comment: Order Added by Discern Expert. Performed By: #### 1 6884100, 0075657, 61203568, 7772006, 51989455, 0274453, 6565094, 1455053, 6290970, 372198745, 94824319 ####[address] [place] [address] Monocytes/100 WBC (Bld) 7.9 % Normal 4.0-14.0 [facility] Comment on above: Order Comment: Order Added by Discern Expert. Performed By: #### 1 3343377, 7279346, 37553500, 3463862, 75137273, 7696194, 7391163, 7595938, 0868878, 913308971, 72331594 ####[address] [address] Monocytes/Leukocyte s Auto (Bld) [Pure # fraction] 0.6 E9/L Normal 0.2-1.0 [facility] Comment on above: Order Comment: Order Added by Discern Expert. Performed By: #### 1 5547286, 6066606, 60234117, 5568113, 94696322, 4522622, 1915974, 8835189, 4283651, 202355417, 82172037 ####[address] [place] [address] Neutrophils/100 WBC (Bld) 64.6 % Normal 36.0-75.0 [facility] Comment on above: Order Comment: Order Added by Discern Expert. Performed By: #### 1 7527771, 1361969, 31609054, 9937931, 86753229, 8434207, 3176858, 8373357, 0526411, 873586622, 15729492 ####[address] [place] [address] Neutrophils/Leukocy jenifer Auto (Bld) [Pure # fraction] 4.8 E9/L Normal 2.0-7.5 [facility] Comment on above: Order Comment: Order Added by Discern Expert. Performed By: #### 1 7650587, 1053385, 10631387, 2965982, 35667754, 5663255, 9175367, 6117181, 6868509, 239590357, 51771897 ####[facility] [address] [place] [address] CBC w/ Auto Diffon 3 Erythrocyte distribution width (RBC) [Ratio] 14.5 % High 10.9-14.2 [facility] Comment on above: Performed By: #### 1 3726378, 9768701, 87077951, 4123904, 67674136, 6811488, 5474078, 5768659, 7018294, 097673893, 30063076 ####[facility] [address] [place] [address] Hematocrit (Bld) [Volume fraction] 49.4 % High 37.7-49.0 [facility] Comment on above: Performed By: #### 1 7196363, 2362789, 40233447, 0816557, 60811569, 1830783, 8237771, 7949637, 8221959, 365483468, 30431349 ####[facility] [address] [place] [address] Hemoglobin (Bld) [Mass/Vol] 16.9 g/dL Normal 13.5-17.5 [facility] Comment on above: Performed By: #### 1 8293878, 0106102, 39964587, 3648553, 92359776, 1356666, 7372703, 7560569, 5987687, 915317139, 64843390 ####[facility] [address] [place] [address] MCH (RBC) [Entitic mass] 30.3 pg Normal 27.0-34.0 [facility] Comment on above: Performed By: #### 1 0703833, 5926235, 72354487, 3824842, 46172991, 4150781, 3731103, 9831139, 4387425, 882066763, 39721432 ####[address] [place] [address] MCHC (RBC) [Mass/Vol] 34.3 g/dL Normal 31.4-36.0 [facility] Comment on above: Performed By: #### 1 4253993, 4441814, 18194348, 4115455, 84228274, 2369543, 5223310, 5301406, 8484432, 482845061, 78946548 ####[address] [place] [address] MCV (RBC) [Entitic vol] 88.2 fL Normal 80.0-100.0 [facility] Comment on above: Performed By: #### 1 8056311, 7085503, 45073196, 6898129, 18578795, 1706375, 2355778, 5136469, 0899384, 791890322, 67198909 ####[address] Platelet mean volume (Bld) [Entitic vol] 9.7 fL Normal 6.4-10.8 [facility] Comment on above: Performed By: #### 1 9082503, 1424401, 15003309, 5571654, 87253537, 8602952, 0194889, 5873868, 0690446, 429214872, 66563330 ####[address] [place] [address] Platelets (Bld) [#/Vol] 245.0 E9/L Normal 150.0-500.0 [facility] Comment on above: Performed By: #### 1 6941608, 6445165, 78930440, 5573649, 84985147, 4134138, 7479745, 5831525, 2379218, 160794812, 04026419 ####[address] [address] RBC (Bld) [#/Vol] 5.6 E12/L Normal 4.3-5.9 [facility] Comment on above: Performed By: #### 1 6645457, 6204536, 73461045, 2652038, 80436854, 6637901, 2060771, 0507687, 7408598, 987057956, 79321836 ####[facility] [address] [place] [address] WBC corrected for nucl RBC Auto (Bld) [#/Vol] 7.4 E9/L Normal 4.0-11.0 [facility] Comment on above: Performed By: #### 1 0759425, 5526359, 13314381, 1796450, 99292423, 1388525, 0054244, 7398049, 8334298, 605138992, 26298527 ####[facility] [address] [place] [address] CHEMISTRYOrdered By: SYSTEM SYSTEM on 08-05-2022 25-hydroxyvitamin D3 [Mass/Vol] 18.7 ng/mL Low 30.0 - 100.0 ng/mL [facility] Remisol Albumin [Mass/Vol] 4.4 g/dL Normal 3.3 - 5.0 gm/dL [facility] Remisol Albumin/Globulin [Mass ratio] 1.2 {ratio} Normal 1.1 - 2.2 [facility] Remisol ALP [Catalytic activity/Vol] 70 [iU]/d Normal 21 - 98 Int._Unit/L [facility] Remisol ALT No additional P-5'-P [Catalytic activity/Vol] 105 [iU]/d High 6 - 46 Int._Unit/L [facility] Remisol Anion gap [Moles/Vol] 14 mmol/L Normal 6 - 16 mEq/L [facility] Remisol AST [Catalytic activity/Vol] 83 [iU]/d High 5 - 43 Int._Unit/L [facility] Bilirubin [Mass/Vol] 1.1 mg/dL Normal 0.0 - 1.1 mg/dL [facility] Calcium [Mass/Vol] 9.5 mg/dL Normal 8.9 - 11.1 mg/dL [facility] Chloride [Moles/Vol] 101 mmol/L Normal 101 - 111 mmol/L [facility] Cholesterol [Mass/Vol] 236 mg/dL High 120 - 200 mg/dL [facility] Cholesterol in HDL [Mass/Vol] 35 mg/dL Invalid Interpretation Code [facility] Cholesterol in LDL [Mass/Vol] 120 mg/dL Normal <=129mg/dL [facility] Cholesterol in VLDL [Mass/Vol] Unable to Calculate mg/dL Invalid Interpretation Code 7 - 40 mg/dL [facility] Comment on above: Result Comment: 'Bette ble to report. Trig >400 mg/dl' CO2 [Moles/Vol] 28 mmol/L Normal 21 - 31 mmol/L [facility] Rem[facility] Creatinine [Mass/Vol] 1.0 mg/dL Normal 0.5 - 1.3 mg/dL [facility] Remisol Free T4 [Mass/Vol] 0.70 ng/dL Normal 0.58 - 1.64 ng/dL [facility] Remisol GFR/1.73 sq M.predicted among non-blacks MDRD (S/P/Bld) [Vol rate/Area] 93 mL/min/1.73 m2 Normal >=59mL/min/1.73 m2 [facility] S Globulin (S) [Mass/Vol] 3.7 g/dL Normal 1.4 - 4.0 gm/dL [facility] Remisol Glucose [Mass/Vol] 111 mg/dL Normal 55 - 199 mg/dL [facility] Remisol Potassium [Moles/Vol] 3.5 mmol/L Normal 3.5 - 5.3 mmol/L [facility] Remisol Prostate specific Ag [Mass/Vol] 0.7 ng/mL Normal 0.1 - 3.5 ng/mL [facility] Remisol Protein [Mass/Vol] 8.1 g/dL High 6.0 - 7.8 gm/dL [facility] Remisol Sodium [Moles/Vol] 139 mmol/L Normal 135 - 145 mmol/L [facility] Remisol Triglyceride [Mass/Vol] 438 mg/dL High <=149mg/dL [facility] Remisol TSH Qn 8.04 m[IU]/L High 0.34 - 5.60 mcIU/mL [facility] C Remisol Urate [Mass/Vol] 9.8 mg/dL High 2.2 - 7.4 mg/dL [facility] C Remisol Urea nitrogen [Mass/Vol] 11 mg/dL Normal 5 - 21 mg/dL [facility] Remisol Urea nitrogen/Creatinine [Mass ratio] 11 mg/mg Normal 10 - 20 [facility] Remisol CMPon 08-05-2022 Albumin [Mass/Vol] 4.4 g/dL Normal 3.3-5.0 [facility] Comment on above: Performed By: #### 1 [id number], 2036990, 31814985, 0035524, 16021981, 0360453, 6961716, 7190766, 8870741, 567106238, 99158327 ####[facility] [address] [place] [address] Albumin/Globulin (S) [Mass conc ratio] 1.2 Normal 1.1-2.2 [facility] Comment on above: Performed By: #### 1 2303434, 7347195, 13942950, 3549000, 82481580, 2416423, 9069891, 5410561, 9913093, 919368723, 74740706 ####[facility] [address] [place] [address] ALP [Catalytic activity/Vol] 70 Int._Unit/L Normal 21-98 [facility] Comment on above: Performed By: #### 1 8426405, 5129575, 03069511, 5775408, 28745237, 2036234, 9597500, 6250351, 8353118, 483479224, 26026356 ####[facility] [address] [place] [address] ALT No additional P-5'-P [Catalytic activity/Vol] 105 Int._Unit/L High 6-46 [facility] Comment on above: Performed By: #### 1 5272726, 4697083, 30077726, 9154148, 89727629, 8328057, 9552718, 8137234, 6191601, 322401808, 39644366 ####[facility] [address] [place] [address] Anion gap [Moles/Vol] 14 mmol/L Normal 6-16 [facility] Comment on above: Performed By: #### 1 3405694, 0180132, 71400499, 3543969, 69655690, 5085156, 9411995, 4765612, 0038725, 143389962, 37337611 ####[facility] [address] [place] [address] AST [Catalytic activity/Vol] 83 Int._Unit/L High 5-43 [facility] Comment on above: Performed By: #### 1 8637003, 3238772, 90372281, 0332357, 56278200, 5029207, 0273860, 4678350, 6833938, 897794547, 35280802 ####[address] [address] Bilirubin [Mass/Vol] 1.1 mg/dL Normal 0.0-1.1 [facility] Comment on above: Performed By: #### 1 0236635, 1480947, 18272967, 7318436, 91520332, 4026457, 3813581, 3257779, 9777837, 142933548, 50231174 ####[facility] [address] [place] [address] Calcium [Mass/Vol] 9.5 mg/dL Normal 8.9-11.1 [facility] Comment on above: Performed By: #### 1 3430476, 0304251, 50471621, 1163192, 85234626, 5183593, 5252148, 2669906, 2907812, 107570936, 60509119 ####[facility] [address] [place] [address] Chloride [Moles/Vol] 101 mmol/L Normal 101-111 [facility] Comment on above: Performed By: #### 1 7312177, 9083646, 07818054, 8851241, 61256938, 9623309, 7237619, 8145574, 9184195, 492689477, 10903991 ####[facility] [address] [place] [address] CO2 [Moles/Vol] 28 mmol/L Normal 21-31 [facility] Comment on above: Performed By: #### 1 6554862, 5893201, 37214233, 8707353, 77327773, 6564508, 5034174, 6882955, 1091895, 390968573, 11070774 ####[facility] [address] [place] [address] Creatinine [Mass/Vol] 1.0 mg/dL Normal 0.5-1.3 [facility] Comment on above: Performed By: #### 1 7635955, 4168572, 86273744, 3641947, 23237367, 8783290, 3261505, 5092726, 5127551, 597793658, 75133314 ####[facility] [address] [place] [address] Globulin (S) [Mass/Vol] 3.7 g/dL Normal 1.4-4.0 [facility] Comment on above: Performed By: #### 1 2829460, 3298476, 85519708, 3782647, 44050786, 4275460, 9140683, 5939164, 8579316, 881172120, 18988455 ####[facility] [address] [place] [address] Glucose [Mass/Vol] 111 mg/dL Normal 55-199 [facility] Comment on above: Result Comment: If t his glucose result represents a fasting glucose, interpretation should refer to the following reference range: 55-99 mg/dL Performed By: #### 1 9595979, 7915070, 95032155, 8845000, 71914057, 4353930, 0398760, 9298860, 3936578, 216829361, 47201128 ####[facility] [address] [place] [address] Potassium [Moles/Vol] 3.5 mmol/L Normal 3.5-5.3 [facility] Comment on above: Performed By: #### 1 2826241, 5052357, 70768374, 0630080, 12919442, 2600631, 4750714, 6156408, 8961058, 966451720, 58893354 ####[facility] [address] [place] [address] Protein [Mass/Vol] 8.1 g/dL High 6.0-7.8 [facility] Comment on above: Performed By: #### 1 8199508, 4480385, 56057358, 8733542, 88980295, 7490418, 4701949, 6908016, 8992413, 202342235, 10697664 ####[facility] [address] [place] [address] Sodium [Moles/Vol] 139 mmol/L Normal 135-145 [facility] Comment on above: Performed By: #### 1 7932525, 5445294, 58811985, 8091861, 79884179, 5480637, 8688773, 7221184, 1349231, 817908029, 45813444 ####[facility] [address] [place] [address] Urea nitrogen [Mass/Vol] 11 mg/dL Normal 5-21 [facility] Comment on above: Performed By: #### 1 4445820, 7718015, 91600940, 9038586, 89194292, 5419538, 7399488, 5276172, 1985223, 598430405, 17744447 ####[facility] [address] [place] [address] Urea nitrogen/Creatinine [Mass ratio] 11 No Units Normal 10-20 [facility] Comment on above: Performed By: #### 1 2230627, 4527549, 99633484, 9939022, 01027162, 9503138, 3444999, 6658771, 9958639, 349097320, 75679536 ####[facility] [address] [place] [address] Family Medicine Office/Clini c Noteon 08-05-2022 Family Medicine Office/Clinic Note Chief Complaint establish care needs a few refills HPI Staff establish care, review meds for refills Establish Care: History:hypothyroid, htn, gout, psychosis,asthma.OSMAR Last provider: Hillary Any recent labs: none Health Maintenance UTD: Colonoscopy: 10/22/20 polyps PSA: none covid due Acute: Current issues/complaints: none needs refills 1. depo testosterone ( probably needs level checked) 2. omeprazole History of Present Illness Nataly Wild is a 47-year-old male who presents today for a follow-up evaluation. He is accompanied by his . The patient reports that he has not had laboratory blood work performed or his thyroid levels checked prior to the pandemic. He was not taking his medications for years. However, then he started to take his medications again and was doing fine. However, within the last month with everything else going on, the medication caused him to experience stomach upset. Since his blood pressure never decreases in the normal range, his claims that he will feel unwell when it is normal. He has been taking 3 different blood pressure medications, including Norvasc. Even with taking all 3 medications, his blood pressure is still elevated. He takes a total of 20 medications, but he cannot remember all their names. He does not believe that he should be taking 3 different blood pressure medications, especially if they are not effective for treating his hypertension. Nataly denies any problems with psychosis or associated hallucinations. He had issues with psychosis and hallucinations before he got together with his . However, he did not start noticing this issue until years later. The patient's states that they were not able to have it checked until he was diagnosed with bipolar disorder. He sees Dr. Greene at [facility], who his claims has been one of the best psychiatrists that he has seen thus far. He sees Dr. Reich for his asthma who is a skilled physician aide. He was prescribed steroids and prednisone when he was having issues with his asthma. Dr. Reich called in the medication and allowed him to follow up with him afterward. He reports that his gastroesophageal reflux disease (GERD) has improved. He has been switching his diet because of what has been going on with Lisa. He is not supposed to consume jalapenos or spicy foods, but he still does. His last gout attack was a couple of months ago, which involved his feet and toes. He states that he has not had a migraine in years. His states that he experiences palpitations that she can hear. Nataly notes that he was diagnosed with mitral valve prolapse. This condition concerns his . His is worried about his testosterone levels, as she does not want his levels to return to what they were before. Physical Exam Vitals & Measurements HR: 78(Peripheral) RR: 18 BP: 180/108 SpO2: 96% HT: 69 in HT: 175.26 cm WT: 110.9 kg WT: 243.98 lb BMI: 36.1 General: alert, no acute distress, morbidly obese. Cardiovascular: regular rate and rhythm, normal peripheral perfusion. Respiratory: Lungs CTA, respirations non labored. Extremities: no deformity, no trauma. Neurological: oriented x 4, LOC appropriate for age, CN II-XII intact, motor strength equal & normal bilaterally, speech normal. Assessment/Plan Mitral valve prolapse and palpitations The patient was informed that we have a marketing data specialist who comes to our office. Therefore, we could schedule him to see this marketing data specialist to treat and manage this condition. The patient was happy to hear this and would like to see a marketing data specialist in our office. 1. Hallucinations (R44.3: Hallucinations, unspecified) This is resolved. However, the patient is also bipolar depressive, which is being handled by Dr. Greene. We will resolve this at this time. He should continue seeing psychiatry. He was advised to not become overstressed over this issue. We will not change any of the medications prescribed by Dr. Greene. 2. Mixed hyperlipidemia (E78.2: Mixed hyperlipidemia) The patient needs to undergo new lab work today. We will adjust his medications as needed when we get his new cholesterol levels. 3. Primary hypertension (I10: Essential (primary) hypertension) The patient is not at goal currently. We will work to slowly add medication to not drop his blood pressure too low so where he feels normal throughout the transition of getting his blood pressure to goal. Discussed this in detail with the patient. The patient understands. He was informed that his body became accustomed to having an elevated blood pressure, and it was straining the heart. Therefore, the moment his blood pressure dropped, he felt unwell because the body felt like it needed to have his blood pressure elevated even though it was damaging his organs. For this reason, it would be important to slowly decrease his blood pressure lower. For example, we will get his systolic blood pressure down to 160 and let it remain at that level for a veronica (more content not included)... Normal [facility] Comment on above: Result Comment: Elec tronically Signed By: Leandro RENDON, Akil Koo\.br\Date and Time Signed: 08/05/22 16:28 EDT\.br\Electronically Co-Signed By: Emily Marquez\.br\Date and Time Co-Signed: 08/05/22 15:20 EDT Free T4on 08-05-2022 Free T4 [Mass/Vol] 0.70 ng/dL Normal 0.58-1.64 [facility] Comment on above: Order Comment: Free T4 added by Discern Rule due to a TSH result of <0.34 or >5.60. Performed By: #### 1 [id number], 1896122, 46652577, 5555157, 15470797, 6519358, 4449901, 3643549, 5881048, 646633704, 33412090 ####[facility] [address] [place] [address] HEMATOLOGYOrdered By: SYSTEM SYSTEM on 08-05-2022 Basophils/100 WBC (Bld) 0.3 % Normal 0.0 - 2.0 % [facility] HemeAutoSS Basophils/Leukocyte s Auto (Bld) [Pure # fraction] 0.0 E9/L Normal 0.0 - 0.2 E9/L [facility]eAutoSS Eosinophils/100 WBC (Bld) 0.3 % Normal 0.0 - 8.0 % [facility]eAutoSS Eosinophils/Leukocy jenifer Auto (Bld) [Pure # fraction] 0.0 E9/L Normal 0.0 - 0.5 E9/L [facility] HemeAutoSS Lymphocytes/100 WBC (Bld) 26.9 % Normal 14.0 - 50.0 % [facility] HemeAutoSS Lymphocytes/Leukocy jenifer Auto (Bld) [Pure # fraction] 2.0 E9/L Normal 1.0 - 4.0 E9/L [facility] HemeAutoSS Monocytes/100 WBC (Bld) 7.9 % Normal 4.0 - 14.0 % [facility] HemeAutoSS Monocytes/Leukocyte s Auto (Bld) [Pure # fraction] 0.6 E9/L Normal 0.2 - 1.0 E9/L [facility] HemeAutoSS Neutrophils/100 WBC (Bld) 64.6 % Normal 36.0 - 75.0 % [facility] HemeAutoSS Neutrophils/Leukocy jenifer Auto (Bld) [Pure # fraction] 4.8 E9/L Normal 2.0 - 7.5 E9/L [facility] HemeAutoSS HEMATOLOGYOrdered By: Elba Austin on 08-05-2022 Erythrocyte distribution width (RBC) [Ratio] 14.5 % High 10.9 - 14.2 % [facility]eAutoSS Hematocrit (Bld) [Volume fraction] 49.4 % High 37.7 - 49.0 % [facility] Hemoglobin (Bld) [Mass/Vol] 16.9 g/dL Normal 13.5 - 17.5 gm/dL [facility]eAuto[facility] MCH (RBC) [Entitic mass] 30.3 pg Normal 27.0 - 34.0 pg [facility] HemeAutoSS MCHC (RBC) [Mass/Vol] 34.3 g/dL Normal 31.4 - 36.0 gm/dL [facility] HemeAutoSS MCV (RBC) [Entitic vol] 88.2 fL Normal 80.0 - 100.0 fL [facility] HemeAutoSS Platelet mean volume (Bld) [Entitic vol] 9.7 fL Normal 6.4 - 10.8 fL [facility]Auto[facility] Platelets (Bld) [#/Vol] 245.0 E9/L Normal 150.0 - 500.0 E9/L [facility]eAuto[facility] RBC (Bld) [#/Vol] 5.6 E12/L Normal 4.3 - 5.9 E12/L [facility] HemeAutoSS WBC corrected for nucl RBC Auto (Bld) [#/Vol] 7.4 E9/L Normal 4.0 - 11.0 E9/L [facility] HemeAutoSS Lipid Panelon 08-05-2022 Cholesterol in VLDL [Mass/Vol] [facility] Abnormal 7-40 [facility] Comment on above: Result Comment: 'Bette ble to report. Trig >400 mg/dl' Result verified by Discern Rule. Performed result UT (Unable to Calculate) was sent as an Alpha code due the inability to calculate a valid numeric value. Performed By: #### 1 7147918, 3060653, 60913663, 1335333, 21570970, 3303556, 9060691, 4097305, 3338628, 907254199, 33952047 ####[facility] [address] [place] [address] Cholesterol [Mass/Vol] 236 mg/dL High 120-200 [facility] Comment on above: Performed By: #### 1 6820823, 8876903, 58045472, 2872983, 38352973, 3640534, 3809873, 2069052, 3443658, 789430647, 75514887 ####[facility] [address] [place] [address] Cholesterol in HDL [Mass/Vol] 35 mg/dL Invalid Interpretation Code [facility] Comment on above: Result Comment: HDL > or equal to 60 mg/dL: Low cardiovascular risk HDL < 40 mg/dL : High cardiovascular risk Performed By: #### 1 5388093, 2707269, 80905879, 2809319, 57948278, 4776277, 4838457, 0342674, 9032261, 299699196, 14956602 ####[facility] [address] [place] [address] Cholesterol in LDL [Mass/Vol] 120 mg/dL Normal <=129 [facility] Comment on above: Performed By: #### 1 7691886, 6351735, 59075619, 0161390, 13007804, 9927852, 6390793, 5121157, 0435206, 031665158, 99558823 ####[facility] [address] [place] [address] Triglyceride [Mass/Vol] 438 mg/dL High <=149 [facility] Comment on above: Performed By: #### 1 6496194, 2575212, 95048426, 0363285, 06135809, 1989878, 9536750, 3713478, 1893433, 068809332, 36372160 ####[facility] [address] [place] [address] PSA Screen, Totalon 08-06-19 23 Prostate specific Ag [Mass/Vol] 0.7 ng/mL Normal 0.1-3.5 [facility] Comment on above: Result Comment: The concentration of PSA determined by different manufacturers can vary due to differences in assay methods and reagent specificity. Values obtained from different assay methods cannot be used interchangeably. The methodology used for this result was chemiluminescence using [employer]'s Access [employer] PSA reagent. Performed By: #### 1 5805225, 1641609, 37417647, 2274064, 68140781, 1647464, 8022583, 3938750, 3158005, 543852577, 56417725 ####[facility] [address] [place] [address] Patient Educationon 08-06-19 23 Patient Education Nutrition BMI for Adults What is BMI? Body mass index (BMI) is a number that is calculated from a person's weight and height. BMI can help estimate how much of a person's weight is composed of fat. BMI does not measure body fat directly. Rather, it is an alternative to procedures that directly measure body fat, which can be difficult and expensive. BMI can help identify people who may be at higher risk for certain medical problems. What are BMI measurements used for? BMI is used as a screening tool to identify possible weight problems. It helps determine whether a person is obese, overweight, a healthy weight, or underweight. BMI is useful for: ? Identifying a weight problem that may be related to a medical condition or may increase the risk for medical problems. ? Promoting changes, such as changes in diet and exercise, to help reach a healthy weight. BMI screening can be repeated to see if these changes are working. How is BMI calculated? BMI involves measuring your weight in relation to your height. Both height and weight are measured, and the BMI is calculated from those numbers. This can be done either in [place] or metric measurements. Note that charts and online BMI calculators are available to help you find your BMI quickly and easily without having to do these calculations yourself. To calculate your BMI in [place] measurements: 1. Measure your weight in pounds (lb). 2. Multiply the number of pounds by 703. ? For example, for a person who weighs 180 lb, multiply that number by 703, which equals 126,540. 3. Measure your height in inches. Then multiply that number by itself to get a measurement called inches squared. ? For example, for a person who is 70 inches tall, the inches squared measurement is 70 inches x 70 inches, which equals 4,900 inches squared. 4. Divide the total from step 2 (number of lb x 703) by the total from step 3 (inches squared): 126,540 ? 4,900 = 25.8. This is your BMI. To calculate your BMI in metric measurements: 1. Measure your weight in kilograms (kg). 2. Measure your height in meters (m). Then multiply that number by itself to get a measurement called meters squared. ? For example, for a person who is 1.75 m tall, the meters squared measurement is 1.75 m x 1.75 m, which is equal to 3.1 meters squared. 3. Divide the number of kilograms (your weight) by the meters squared number. In this example: 70 ? 3.1 = 22.6. This is your BMI. What do the results mean? BMI charts are used to identify whether you are underweight, normal weight, overweight, or obese. The following guidelines will be used: ? Underweight: BMI less than 18.5. ? Normal weight: BMI between 18.5 and 24.9. ? Overweight: BMI between 25 and 29.9. ? Obese: BMI of 30 or above. Keep these notes in mind: ? Weight includes both fat and muscle, so someone with a muscular build, such as an athlete, may have a BMI that is higher than 24.9. In cases like these, BMI is not an accurate measure of body fat. ? To determine if excess body fat is the cause of a BMI of 25 or higher, further assessments may need to be done by a health care provider. ? BMI is usually interpreted in the same way for men and women. Where to find more information For more information about BMI, including tools to quickly calculate your BMI, go to these websites: ? Centers for Disease Control and Prevention: www.cdc.gov ? [place] Heart Association: www.heart.org ? National Heart, Lung, and Blood [place]: www.nhlbi.nih.gov Summary ? Body mass index (BMI) is a number that is calculated from a person's weight and height. ? BMI may help estimate how much of a person's weight is composed of fat. BMI can help identify those who may be at higher risk for certain medical problems. ? BMI can be measured using [place] measurements or metric measurements. ? BMI charts are used to identify whether you are underweight, normal weight, overweight, or obese. This information is not intended to replace advice given to you by your health care provider. Make sure you discuss any questions you have with your health care provider. Document Revised: 10/17/2019 Document Reviewed: 08/24/2019 [employer] Patient Education ? 2022 [employer] Normal [facility] TSH With T4fr Reflexon 08-05 TSH Qn 8.04 m[IU]/L High 0.34-5.60 [facility] Comment on above: Performed By: #### 1 9455158, 3074364, 29629924, 4356954, 54172646, 6737154, 3785479, 3223069, 0822483, 200694452, 02356498 ####[facility] [address] [place] [address] Uric Acidon 08-05-2022 Urate [Mass/Vol] 9.8 mg/dL High 2.2-7.4 [facility] Comment on above: Performed By: #### 1 7949081, 3903186, 25738114, 8799492, 27297656, 9866941, 9087904, 8293015, 2116573, 394415403, 98806417 ####[facility] [address] [place] [address] Vitamin D 25 Hydroxyon 08-05 25-hydroxyvitamin D3 [Mass/Vol] 18.7 ng/mL Low 30.0-100.0 [facility] Comment on above: Result Comment: Vit seay D deficiency has been defined as a level of serum 25-OH vitamin D less than 20 ng/mL (1,2) by the [place] of Medicine and an Endocrine Society practice guideline. The Endocrine Society further defined vitamin D insufficiency as a level between 21 and 29 ng/mL (2). 1. IOM ([place] of Medicine). 2010. Dietary reference intakes for calcium and D. [place]: The National Academies Press. 2. Marlon MF, Magali MARTIN, Laurent LYNCH, et al. Evaluation, treatment, and prevention of vitamin D deficiency: an Endocrine Society clinical practice guideline. JCEM. 2010; 96 (7):1911-30. Performed By: #### 1 4645915, 4306484, 09437012, 9263468, 44024046, 3412593, 1325103, 2207007, 2407063, 298882606, 91679653 ####[facility] [address] [place] [address] eGFRon 08-05-2022 GFR/1.73 sq M.predicted among non-blacks MDRD (S/P/Bld) [Vol rate/Area] 93 mL/min/1.73 m2 Normal >=59 [facility] Comment on above: Order Comment: Order added by Discern Expert. Result Comment: Center Machine Set Up Operator ambreen kidney disease could be indicated at eGFR's of less than 60 mL/min/1.73m2. Kidney failure is indicated at less than 15 mL/min/1.73m2. Performed By: #### 1 1173145, 2059771, 21313944, 7513595, 09619337, 7072448, 2716752, 1997904, 7730351, 288861765, 78023483 ####[facility] [address] [place] [address] CBC AUTO DIFFon 02-22-2022 BASO # 0.1 103/ul Normal 0.0-0.1 [facility] Comment on above: Performed By: #### C BC #### [facility] [address] [address] [address] Peter Couch Basophils/100 WBC (Bld) 0.8 % Normal 0.2-2.0 [facility] Comment on above: Performed By: #### C BC #### [facility] [address] [place] [address] Dr. Peter Couch EO # 0.3 103/ul Normal 0.0-0.7 [facility] Comment on above: Performed By: #### C BC #### [facility] [address] [place] [address] Dr. Peter Couch Eosinophils/100 WBC (Bld) 3.8 % Normal 0.9-7.0 [facility] Comment on above: Performed By: #### C BC #### [facility] [address] [place] [address] Dr. Peter Couch Erythrocyte distribution width (RBC) [Ratio] 13.8 % Normal 11.0-15.0 [facility] Comment on above: Performed By: #### C BC #### [facility] [address] [place] [address] Dr. Peter Couch Hematocrit (Bld) [Volume fraction] 54.4 % Critically high 42.0-54.0 [facility] Comment on above: Performed By: #### C BC #### [facility] [address] [place] [address] Dr. Peter Couch Hemoglobin (Bld) [Mass/Vol] 18.2 g/dL Critically high 14.0-18.0 [facility] Comment on above: Performed By: #### C BC #### [facility] [address] [place] [address] Dr. Peter Couch IG # 0.02 10e3/ul Normal 0.00-0.03 [facility] Comment on above: Performed By: #### C BC #### [facility] [address] [place] [address] Dr. Peter Couch IG % 0.3 % Normal 0.0-0.5 [facility] Comment on above: Performed By: #### C BC #### [facility] [address] [place] [address] Dr. Peter Couch LYMPH # 2.1 103/ul Normal 1.2-3.8 [facility] Comment on above: Performed By: #### C BC #### [facility] [address] [place] [address] Dr. Peter Couch Lymphocytes/100 WBC (Bld) 28.2 % Normal 20.5-60.0 [facility] Comment on above: Performed By: #### C BC #### [facility] [address] [place] [address] Dr. Peter Couch MANUAL DIFF REQ NO Normal [facility] Comment on above: Performed By: #### C BC #### [facility] [address] [place] [address] Dr. Peter Couch MCH (RBC) [Entitic mass] 28.3 pg Normal 25.9-34.0 [facility] Comment on above: Performed By: #### C BC #### [facility] [address] [place] [address] Dr. Peter Couch MCHC (RBC) [Mass/Vol] 33.5 g/dL Normal 29.9-35.2 [facility] Comment on above: Performed By: #### C BC #### [facility] [address] [place] [address] Dr. Peter Couch MCV (RBC) [Entitic vol] 84.6 fL Normal 80.0-94.0 [facility] Comment on above: Performed By: #### C BC #### [facility] [address] [place] [address] Dr. Peter Couch MONO # 0.6 103/ul Normal 0.3-0.8 [facility] Comment on above: Performed By: #### C BC #### [facility] [address] [place] [address] Dr. Peter Couch Monocytes/100 WBC (Bld) 7.9 % Normal 1.7-12.0 [facility] Comment on above: Performed By: #### C BC #### [facility] [address] [place] [address] Dr. Peter Couch NEUT # 4.5 103/ul Normal 1.4-6.5 [facility] Comment on above: Performed By: #### C BC #### [facility] [address] [place] [address] Dr. Peter Couch Neutrophils/100 WBC (Bld) 59.0 % Normal 43.0-75.0 [facility] Comment on above: Performed By: #### C BC #### [facility] [address] [place] [address] Dr. Peter Couch Platelet mean volume (Bld) [Entitic vol] 9.6 fL Normal 9.5-13.5 [facility] Comment on above: Performed By: #### C BC #### [facility] [address] [place] [address] Dr. Peter Couch PLT 251 103/ul Normal 150-450 [facility] Comment on above: Performed By: #### C BC #### [facility] [address] [place] [address] Dr. Peter Couch RBC 6.43 106/ul Critically high 4.70-6.10 [facility] Comment on above: Performed By: #### C BC #### [facility] [address] [place] [address] Dr. Peter Couch WBC 7.6 103/ul Normal 4.0-11.0 [facility] Comment on above: Performed By: #### C BC #### [facility] [address] [place] [address] Dr. Peter Couch [facility] SARS-CoV-2 (COVID-19) RNA JALYN+probe Ql (Unsp spec) Detected Critically abnormal NOT DETECTED [facility] Comment on above: Result Comment: This test is not yet approved or cleared by the [place] FDA. When there are no FDA-approved or cleared tests available, and other criteria are met, FDA can make tests available under an emergency access mechanism called an Emergency Use Authorization (EUA). The EUA for this test is supported by the [place] of Health and Human Service's (HHS's) declaration that circumstances exist to justify the emergency use of in vitro diagnostics for the detection and/or diagnosis of the virus that causes COVID-19. This EUA will remain in effect (meaning this test can be used) for the duration of the COVID-19 declaration justifying emergency of IVDs, unless it is terminated or revoked by FDA (after which the test may no longer be used). Performed By: #### C [facility] #### [facility] [address] [place] [address] Dr. Peter Couch Encounters Encounter Date Encounter Type Care Provider Facility Start: 11-01-2023 ambulatory Chris White acility:[facility] Start: 09-29-2023 End: 09-29-2023 Lab Drop off Akil Reeves [facility] Start: 09-29-2023 End: 09-29-2023 ambulatory MD Akil Reeves Facility:[facility] Start: 07-14-2023 End: 07-14-2023 ambulatory Akil Reeves Facility:[facility] Start: 07-07-2023 End: 07-07-2023 Lab Drop off Akil Reeves [facility] Start: 07-07-2023 End: 07-07-2023 ambulatory Akil Reeves Facility:[facility] Start: 05-24-2023 End: 05-24-2023 ambulatory Akil Reeves Facility:[facility] Start: 05-18-2023 End: 05-18-2023 ambulatory Akil Reeves Facility:[facility] Start: 02-21-2023 End: 02-21-2023 ambulatory Akil Reeves Facility:[facility] Start: 02-10-2023 End: 02-10-2023 Lab Drop off Akil Reeves [facility] Start: 02-10-2023 End: 02-10-2023 ambulatory Akil Reeves Facility[facility] Start: 01-06-2023 End: 01-06-2023 ambulatory Akil Reeves Facility:[facility] Start: 12-27-2022 End: 12-27-2022 ambulatory Akil Reeves Facility:[facility] Start: 12-23-2022 End: 12-23-2022 ambulatory Akil EAmanda Reeves Facility:[facility] Bharati jaramillo Start: 09-09-2022 End: 09-09-2022 ambulatory Akil Hayes Reeves Facility:[facility] Start: 08-26-2022 End: 08-26-2022 ambulatory Akil EAmanda Reeves Facility:[facility] Bharati jaramillo Start: 08-05-2022 End: 08-05-2022 Lab Drop off Akil Hayes Reeves [facility] Start: 08-05-2022 End: 08-05-2022 ambulatory Akil Reeves Facility:[facility] Start: 03-15-2022 End: 03-15-[address] JOSEPHINE THORNTON . Facility: Start: 02-22-2022 End: 02-23-[address] JOSEPHINE THORNTON . Facility: Start: 02-17-2022 End: 02-18-[address] JOSEPHINE THORNTON . Facility: Start: 11-10-[address] JOSEPHINE THORNTON . Facil ity: Start: 10-28-2021 End: 10-28-[address] JOSEPHINE THORNTON . 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 Akil Reeves Comment on above: rich's w/ dysplasia 2016 then normal in oct 2020 Immunizations Immunization Date Immunization Notes Care Provider Fa cilipiyush 12-10-2014 influenza virus vaccine, unspecified formulation Akil Reeves [facility] NEGATED: Highlighted row has not occurred!02-21-2023 influenza virus vaccine, unspecified formulation Akildarrel Reeves [facility] NEGATED: Highlighted row has not occurred!02-10-2023 influenza virus vaccine, unspecified formulation Akil Reeves [facility] NEGATED: Highlighted row has not occurred!01-06-2023 influenza virus vaccine, unspecified formulation Akil Reeves [facility] NEGATED: Highlighted row has not occurred!12-23-2022 influenza virus vaccine, unspecified formulation Akil Reeves [facility] Payers Date Payer Category Payer Unknown [id number] 2.16.84 [id number] 1975 Unknown [id number] 2.16.84 0.1.187079.3.579.2.593 1975 Unknown [id number] 2.16.84 0.1.376586.3.579.2.593 1975 Unknown [id number] 2.16.84 0.1.450885.3.579.2.593 1975 Unknown [id number] 2.16.84 0.1.904514.3.579.2.593 1975 Unknown [id number] 2.16.8 40.1.881405.3.579.2.727 1975 Unknown [id number] 2.16.8 40.1.537634.3.579.2.727 1975 Unknown [id number] 2.16.8 40.1.144953.3.579.2.727 1975 Unknown [id number] 2.16.8 40.1.903500.3.579.2.727 1975 Unknown [id number] 2.16.8 40.1.564537.3.579.2.727 1975 Unknown [id number] 2.16.8 40.1.000050.3.579.2.727 1975 Unknown [id number] 2.16.8 40.1.079367.3.579.2.727 1975 Unknown [id number] 2.16.8 40.1.092270.3.579.2.727 1975 Unknown [id number] 2.16.8 40.1.620118.3.579.2.727 1975 Unknown [id number] 2.16.8 40.1.996796.3.579.2.727 1975 Unknown [id number] 2.16.8 40.1.391648.3.579.2.727 1975 Unknown [id number] 2.16.8 40.1.003551.3.579.2.727 1975 Unknown [id number] 2.16.8 40.1.311920.3.579.2.727 1975 Unknown [id number] 2.16.8 40.1.061484.3.579.2.727 1975 Unknown [id number] 2.16.8 40.1.765122.3.579.2.727 1975 Unknown [id number] 2.16.8 40.1.796581.3.579.2.727 1975 Unknown [id number] 2.16.8 40.1.311010.3.579.2.727 1975 Unknown [id number] 2.16.8 40.1.288848.3.579.2.727 1975 Unknown [id number] 2.16.8 40.1.378759.3.579.2.727 1975 Unknown [id number] 2.16.8 40.1.045368.3.579.2.727 1959 Self-pay 1959 Unknown [id number] 1959 Unknown [id number] Unknown [id number] 2.16.8 40.1.270715.3.579.2.531 Social History Date Type Detail Facility Start: 08-05-2022 End: 09-29-2023 Tobacco smoking status Ex-smoker (finding) [facility] Tobacco smoking status Never [facility] Sex Assigned At Male [facility] Clinical Note 09-29-2023 Note Date & Type Note Facility 09-29-2023 Note Patient Education Nutrition BMI for Adults What is BMI? Body mass index (BMI) is a number that is calculated from a person's weight and height. BMI can help estimate how much of a person's weight is composed of fat. BMI does not measure body fat directly. Rather, it is an alternative to procedures that directly measure body fat, which can be difficult and expensive. BMI can help identify people who may be at higher risk for certain medical problems. What are BMI measurements used for? BMI is used as a screening tool to identify possible weight problems. It helps determine whether a person is obese, overweight, a healthy weight, or underweight. BMI is useful for: ? Identifying a weight problem that may be related to a medical condition or may increase the risk for medical problems. ? Promoting changes, such as changes in diet and exercise, to help reach a healthy weight. BMI screening can be repeated to see if these changes are working. How is BMI calculated? BMI involves measuring your weight in relation to your height. Both height and weight are measured, and the BMI is calculated from those numbers. This can be done either in [place] or metric measurements. Note that charts and online BMI calculators are available to help you find your BMI quickly and easily without having to do these calculations yourself. To calculate your BMI in [place] measurements: 1. Measure your weight in pounds (lb). 2. Multiply the number of pounds by 703. ? For example, for a person who weighs 180 lb, multiply that number by 703, which equals 126,540. 3. Measure your height in inches. Then multiply that number by itself to get a measurement called inches squared. ? For example, for a person who is 70 inches tall, the inches squared measurement is 70 inches x 70 inches, which equals 4,900 inches squared. 4. Divide the total from step 2 (number of lb x 703) by the total from step 3 (inches squared): 126,540 ? 4,900 = 25.8. This is your BMI. To calculate your BMI in metric measurements: 1. Measure your weight in kilograms (kg). 2. Measure your height in meters (m). Then multiply that number by itself to get a measurement called meters squared. ? For example, for a person who is 1.75 m tall, the meters squared measurement is 1.75 m x 1.75 m, which is equal to 3.1 meters squared. 3. Divide the number of kilograms (your weight) by the meters squared number. In this example: 70 ? 3.1 = 22.6. This is your BMI. What do the results mean? BMI charts are used to identify whether you are underweight, normal weight, overweight, or obese. The following guidelines will be used: ? Underweight: BMI less than 18.5. ? Normal weight: BMI between 18.5 and 24.9. ? Overweight: BMI between 25 and 29.9. ? Obese: BMI of 30 or above. Keep these notes in mind: ? Weight includes both fat and muscle, so someone with a muscular build, such as an athlete, may have a BMI that is higher than 24.9. In cases like these, BMI is not an accurate measure of body fat. ? To determine if excess body fat is the cause of a BMI of 25 or higher, further assessments may need to be done by a health care provider. ? BMI is usually interpreted in the same way for men and women. Where to find more information For more information about BMI, including tools to quickly calculate your BMI, go to these websites: ? Centers for Disease Control and Prevention: www.cdc.gov ? [place] [employer]: www.heart.org ? National Heart, Lung, and Blood [place]: www.nhlbi.nih.gov Summary ? Body mass index (BMI) is a number that is calculated from a person's weight and height. ? BMI may help estimate how much of a person's weight is composed of fat. BMI can help identify those who may be at higher risk for certain medical problems. ? BMI can be measured using [place] measurements or metric measurements. ? BMI charts are used to identify whether you are underweight, normal weight, overweight, or obese. This information is not intended to replace advice given to you by your health care provider. Make sure you discuss any questions you have with your health care provider. Document Revised: 10/17/2019 Document Reviewed: 08/24/2019 [employer] Patient Education ? 2022 [employer]. [facility] Evaluation + Plan note 02-10-2023 Laboratory Note Date & Type Note Facility 02-10-2023 Evaluation + Plan note Future Scheduled [id number] 02/10/23 [facility] Evaluation + Plan note Note Date & Type Note Facility Evaluation + Plan note Future Appointments Appointment Date:08/26/2022 09:20:00 AM Scheduled Provider:Akil Reeves MD Location:[facility] Appointment Type:FM Open Diagnostic Tests PendingTestosterone F&T 08/05/22 [facility] Evaluation + Plan note Laboratory Note Date & Type Note Facility Evaluation + Plan note Future Appointments Appointment Date:05/12/2023 08:00:00 AM Scheduled Provider:Akil Reeves MD Location:[facility] Appointment Type:FM Open Diagnostic Tests PendingTestosterone F&T 02/10/23 Future Scheduled [id number] 02/10/23 [facility] Evaluation + Plan note Laboratory Note Date & Type Note Facility Evaluation + Plan note Future Appointments Appointment Date:05/12/2023 08:00:00 AM Scheduled Provider:Akil Reeves MD Location:[facility] Appointment Type:FM Open Future Scheduled [id number] 02/10/23 [facility] Evaluation + Plan note Laboratory Note Date & Type Note Facility Evaluation + Plan note Future Appointments Appointment Date:07/14/2023 07:15:00 AM Scheduled Provider:Akil Reeves MD Location:[facility] Appointment Type:FM Open Future Scheduled [id number] 02/10/23 [facility] Hospital course Narrative Note Date & Type Note Facility Hospital course Narrative No data available for this section [facility] Hospital Discharge instructions Note Date & Type Note Facility Hospital Discharge instructions No data available for this section [facility] Progress note Note Date & Type Note Facility Progress note No data available for this section [facility] Summary Purpose Family History No Family History Records Found No data available for this section No data available for this section No data available for this section No Family History Records FoundNo Family History Records FoundNo Family History Records FoundNo Family History Records FoundNo Family History Records FoundNo Family History Records Found No data available for this section No Family History Records FoundNo Family History Records FoundNo Family History Records Found Advance Directives No Advanced Directives Records FoundNo Advanced Directives Records FoundNo Advanced Directives Records FoundNo Advanced Directives Records FoundNo Advanced Directives Records FoundNo Advanced Directives Records FoundNo Advanced Directives Records FoundNo Advanced Directives Records FoundNo Advanced Directives Records FoundNo Advanced Directives Records Found Additional Source Comments (unrecognized sect ion and content) No Status Records FoundNo Status Records FoundNo Status Records FoundNo Status Records FoundNo Status Records FoundNo Status Records FoundNo Status Records FoundNo Status Records FoundNo Status Records FoundNo Status Records Found INFORMATION SOURCE (unrecogn ized section and content) DATE CREATED AUTHOR 06/18/2022 [facility] DATE CREATED AUTHOR AUTHOR'S ORGANIZ ATION 07/08/2023 [facility] DATE CREATED AUTHOR AUTHOR'S ORGANIZ ATION 07/15/2023 [facility] DATE CREATED AUTHOR AUTHOR'S ORGANIZ ATION 09/30/2023 [facility] DATE CREATED AUTHOR AUTHOR'S ORGANIZ ATION 10/07/2023 [facility] DATE CREATED AUTHOR AUTHOR'S ORGANIZ ATION 11/03/2023 [facility] Patient Care team informatio n (unrecognized section and content) Personnel Name: Akil Reeves MD Address: Address: [address] [place] [address] Personnel Name: Akil Reeves MD Address: Address: [address] [place] [address] Personnel Name: Akil Reeves MD Address: Address: [address] [place] [address] Personnel Name: Akil Reeves MD Address: Address: [address] [place] [address] Personnel Name: Akil Reeves MD Address: Address: [address] [place] [address] FOR RECORDS PERTAINING TO PATIENTS WHO ARE OR HAVE BEEN ENROLLED IN A CHEMICAL DEPENDENCY/SUBSTANCEABUSE PROGRAM, SOME INFORMATION MAY BE OMITTED. This clinical summary was aggregated from multiple sources. Caution should be exercised in using it in the provision of clinical care. This summary normalizes information from multiple sources, and as a consequence, information in this document may materially change the coding, format and clinical context of patient data. In addition, data may be omitted in some cases. CLINICAL DECISIONS SHOULD BE BASED ON THE PRIMARY CLINICAL RECORDS. [facility]. provides no warranty or guarantee of the accuracy or completeness of information in this document.
--- NOTE | 2023-11-03 17:50 | ECG_ITS ---
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
--- NOTE | 2023-11-03 17:50 | XR_ITS ---
The [address] [address] Patient Name: NATALY WILD MRN: [id number] date: 1975 Sex: M Assigned Patient Location: ER Current Patient Location: ED.MAIN Accession/Order Number: [id number] Exam Date: 11/03/2023 17:52 Report Date: 11/03/2023 18:25 At the request of: VARSHA GARDNER Procedure: XR chest 1V EXAM: XR chest 1V HISTORY: CP COMPARISON: 04/03/2020 TECHNIQUE: Chest X-ray AP, 1 view FINDINGS: Support devices: None. Lungs/pleura: No consolidation, effusion, or pneumothorax. Heart and mediastinum: Normal contours. Bones: No acute abnormality identified. XR/XR chest 1V Impression: No radiographic evidence of acute cardiopulmonary process. Electronically authenticated by: ALEJO LOUISE Date: 11/03/2023 18:25
--- NOTE | 2023-11-03 17:51 | ED_ITS ---
HPI - Chest Pain General Chief Complaint: Chest Pain Stated Complaint: Chest Pain Time Seen by Provider: 11/03/23 17:35 Source: patient Mode of arrival: walk-in History of Present Illness HPI narrative: 48-year-old male presents to the emergency department for chest pain. It has been there since 6 AM, approximately 12 hours. He points to the middle and lower part of the sternum and it does not seem to radiate. No back pain or pain in his arms neck or jaw. No trauma or fever or complaints of abdominal pain. He states he feels a little bit short of breath. He has a history of hypertension but did not take his antihypertensives the last 2 days. The pain has been continuous and moderate. Related Data Previous Rx's ?Medication ?Instructions ?Recorded [id number] 3.3 4 drp otic (ear) TID #10 mL 09/13/23 mg-3 mg-10 mg-0.5 mg/mL ear drops,susp (Cortisporin-TC) penicillin V potassium 250 mg 250 mg PO QID 10 days #40 tabs 09/13/23 tablet Allergies Allergy/AdvReac Type Severity Reaction Status Date / Time Sulfa (Sulfonamide Allergy Intermediate Hives Verified 09/13/23 01:00 Antibiotics) Review of Systems ROS Narrative A ten point review of systems is negative except as noted above. Exam Narrative Exam Narrative: Nurses note and vital signs reviewed and patient is not hypoxic. General: The patient appears in no apparent distress. Skin: Warm, dry, no pallor noted. There is no rash noted. Head: Normocephalic, atraumatic Eye: Normal conjunctiva, no drainage Ears, Nose, Mouth, and Throat: oral mucosa is moist. Nares patent. Cardiovascular: Regular Rate and Rhythm Respiratory: Patient is in no distress, no accessory muscle use, lungs are clear to auscultation, no wheezing, rales or rhonchi Back: non-tender GI: Obese soft and nontender Musculoskeletal: The patient has no evidence of calf tenderness, no pitting edema, symmetrical pulses noted bilaterally Neurological: A&O normal speech Psychiatric: Cooperative Constitutional Vital Signs, click to edit/add: Last Vital Signs Temp 98.6 F 11/03/23 17:34 Pulse 85 11/03/23 18:30 Resp 18 11/03/23 18:35 BP 166/108 H 11/03/23 18:16 Pulse Ox 98 11/03/23 17:30 O2 Del Method Room Air 11/03/23 17:30 Course Vital Signs Vital signs: Vital Signs Pulse Rate 85 11/03/23 17:30 Respiratory Rate 22 H 11/03/23 17:30 Blood Pressure 199/118 H 11/03/23 17:30 Pulse Oximetry 98 11/03/23 17:30 Oxygen Delivery Method Room Air 11/03/23 17:30 Temperature 98.6 F 11/03/23 17:34 Pulse Rate 85 11/03/23 18:30 Respiratory Rate 18 11/03/23 18:35 Blood Pressure 166/108 H 11/03/23 18:16 Pulse Oximetry 98 11/03/23 17:30 Oxygen Delivery Method Room Air 11/03/23 17:30 MDM - Chest Pain MDM Narrative Medical decision making narrative: The patient presented with elevated blood pressure and chest pain. CAT scan of his chest is ordered to rule out dissection and the patient is signed out to Dr. Crump at change of shift. Blood pressure is elevated and he was given IV hydralazine. Differential Diagnosis Differential diagnosis: Likely pneumothorax, unstable angina pectoris, atypical chest pain, st elevation myocardial infarction and other (Pulmonary embolism, aortic dissection, medical noncompliance) Lab Data Attestation: I reviewed the patient's lab results. Labs: Lab Results 11/03/23 Range/Units 18:00 WBC 11.5 H (4.0-11.0) 10^3/uL RBC 6.60 H (4.70-6.10) 10^6/uL Hgb 18.8 H (14.0-18.0) g/dL Hct 56.3 H (42.0-54.0) % MCV 85.3 (80.0-94.0) fL MCH 28.5 (25.9-34.0) pg MCHC 33.4 (29.9-35.2) g/dL RDW 15.7 H (11.0-15.0) % Plt Count 276 (150-450) 10^3/uL MPV 9.7 (9.5-13.5) fL Neut % (Auto) 74.7 (43.0-75.0) % Lymph % (Auto) 18.5 L (20.5-60.0) % Spencer % (Auto) 6.1 (1.7-12.0) % Eos % (Auto) 0.0 L (0.9-7.0) % Baso % (Auto) 0.3 (0.2-2.0) % Neut # (Auto) 8.6 H (1.4-6.5) 10^3/uL Lymph # (Auto) 2.1 (1.2-3.8) 10^3/uL Spencer # (Auto) 0.7 (0.3-0.8) 10^3/uL Eos # (Auto) 0.0 (0.0-0.7) 10^3/uL Baso # (Auto) 0.0 (0.0-0.1) 10^3/uL Abs Immat Gran (auto) 0.05 H (0.00-0.03) 10^3/uL Imm/Tot Granulo (auto) 0.4 (0.0-0.5) % Sodium 134 L (136-145) mmol/L Potassium 3.9 (3.5-5.1) mmol/L Chloride 97 L (98-107) mmol/L Carbon Dioxide 34.4 H (21.0-32.0) mmol/L Anion Gap 6.5 BUN 7.0 (7.0-18.0) mg/dL Creatinine 1.15 (0.70-1.30) mg/dL Est GFR ( Amer) >60 (>=60) Est GFR (Non-Af Amer) >60 (>=60) BUN/Creatinine Ratio 6.1 Glucose 183 H (74-106) mg/dL Calcium 9.3 (8.5-10.1) mg/dL Troponin I High Sens 10.5 (4.0-76.1) pg/mL Imaging Data Chest x-ray: Radiologist's impression: ITS Impressions Chest X-Ray 11/03/23 17:50 Impression: No radiographic evidence of acute cardiopulmonary process. Electronically authenticated by: ALEJO LOUISE Date: 11/03/2023 18:25 ECG Data Attestation: I personally reviewed and interpreted this ECG as follows: (EKG on my interpretation shows normal sinus rhythm with rate of 70 and no acute change.) Heart Score History: Moderately Suspicious ECG: Normal Age: >45-<65 years Critical Care Time Critical Care Time Critical Care Time: Yes Total Critical Care Time: 35 Attestation: Due to the high probability of sudden and clinically significant deterioration in the patient's condition he/she required the highest level of my preparedness to intervene urgently I provided critical care time including documentation time, medication orders and management, reevaluation, vital sign assessment, ordering and reviewing of lab tests, ordering and reviewing of x-ray studies, and admission orders. Aggregate critical care time is 35 minutes including only time during which I was engaged in work directly related to his/her care and did not include time spent treating other patients simultaneously. Discharge Plan Discharge Patient Disposition: Still a Patient
[2023-11-03] MEDS: MORPHINE SULFATE 4 MG/ML VIAL IV (18:05)
[2023-11-03] MEDS: ONDANSETRON PF 4 MG/2 ML VIAL IV (18:05)
[2023-11-03 18:08] LABS: Basophils Percent Auto 0.3 % (0.2-2.0); Hematocrit 56.3 % (42.0-54.0); Hemoglobin 18.8 g/dL (14.0-18.0); Immature Granulocytes Abs Auto 0.05 10^3/uL (0.00-0.03); Immature Granulocytes Pct Auto 0.4 % (0.0-0.5); Lymphocytes Absolute Auto 2.1 10^3/uL (1.2-3.8); Lymphocytes Percent Auto 18.5 % (20.5-60.0); Mean Corpuscular HGB Conc 33.4 g/dL (29.9-35.2); Mean Corpuscular Hemoglobin 28.5 pg (25.9-34.0); Mean Corpuscular Volume 85.3 fL (80.0-94.0); Mean Platelet Volume 9.7 fL (9.5-13.5); Monocytes Absolute Auto 0.7 10^3/uL (0.3-0.8); Monocytes Percent Auto 6.1 % (1.7-12.0); Neutrophils Absolute Auto 8.6 10^3/uL (1.4-6.5); Neutrophils Percent Auto 74.7 % (43.0-75.0); Platelet Count 276 10^3/uL (150-450); Red Cell Distribution Width 15.7 % (11.0-15.0); White Blood Count 11.5 10^3/uL (4.0-11.0)
[2023-11-03 18:25] LABS: Anion Gap 6.5; BUN Creatinine Ratio 6.1; Calcium 9.3 mg/dL (8.5-10.1); Carbon Dioxide 34.4 mmol/L (21.0-32.0); Chloride 97 mmol/L (98-107); Estimated GFR (African America >60 (>=60); Estimated GFR (Non-African Ame >60 (>=60); Glucose 183 mg/dL (74-106); Potassium 3.9 mmol/L (3.5-5.1); Sodium 134 mmol/L (136-145); Troponin I High Sensitivity 10.5 pg/mL (4.0-76.1)
--- NOTE | 2023-11-03 18:44 | CT_ITS ---
[address] [address] Patient Name: NATALY WILD MRN: [id number] date: 1975 Sex: M Assigned Patient Location: ER Current Patient Location: .[facility] Accession/Order Number: [id number] Exam Date: 11/03/2023 18:51 Report Date: 11/03/2023 20:14 At the request of: VARSHA GARDNER Procedure: CT angio chest EXAM: CT angio chest HISTORY: Chest pain, hypertension, rule out dissection COMPARISON: Chest radiograph 11/03/2023 TECHNIQUE: CT angiography of the pulmonary arteries following the administration of intravenous contrast. Coronal and sagittal MIP (maximum intensity projection) images were performed. 3-D image processing performed on a separate workstation. Dose reduction techniques were achieved by using automated exposure control and/or adjustment of mA and/or kV according to patient size and/or use of iterative reconstruction technique. FINDINGS: The study is technically adequate for the diagnosis of pulmonary embolism, with good contrast bolus to the pulmonary arteries. TUBES AND IMPLANTS: None. CHEST WALL AND LOWER NECK: Unremarkable. BONES: No suspicious lesions. Multilevel degenerative changes of the spine. UPPER ABDOMEN: Unremarkable. MEDIASTINUM AND SHARON: Small hiatal hernia AORTA: No aneurysm or dissection. PULMONARY ARTERIES: No embolism HEART: Mild cardiomegaly CORONARY ARTERIES: No coronary artery calcifications. LUNG AND AIRWAYS: Subsegmental atelectasis in the lingula and bilateral lower lobes PLEURA: Unremarkable. CT/CT angio chest IMPRESSION: 1. No evidence for an acute aortic syndrome or pulmonary embolism. No acute intrathoracic process is identified. 2. Small hiatal hernia. Electronically authenticated by: ROCIO JETT Date: 11/03/2023 20:14
[2023-11-03] MEDS: HYDRALAZINE HCL 20 MG/ML VIAL 10 MG IVP (19:01)
[2023-11-03] MEDS: LABETALOL HCL 20 MG/4 ML SYRINGE IVP (19:58)
[2023-11-03] MEDS: METHYLPREDNISOLONE SOD SUCC PF 125 MG/2 ML VIAL IVP (20:58)
[2023-11-03] MEDS: KETOROLAC TROMETHAMINE 30 MG/ML VIAL IVP (20:58)
== END 2023-11-03 21:55 | disposition home or self-care (01) ==
PROVIDERS: Emergency Medicine; Emergency Provider Internal Medicine; PCP Family Medicine
DX: R07.89 Other chest pain (principal); I10 Essential (primary) hypertension; E66.9 Obesity, unspecified; Z68.36 Body mass index [BMI] 36.0-36.9, adult
CPT/HCPCS: 36415; 71045; 71275; 80048; 84484; 85025; 93005; 96374; 96375; 99285; J0360; J1885; J1920; J2270; J2405; J2919; Q9967

== ENCOUNTER 2024-09-04 09:46 | Emergency (ER) | payer OTHER, SELFPAY ==
--- OUTSIDE RECORDS SUMMARY | 2018-04-10 06:45 | XMS_ITS | Continuity of Care Document ---
Author Organization [facility] Address [address] [place] [address] Phone Care Team Providers Care Global Account Director Name Role Phone AndrewdebbyPuneet alfaro Unavailable Unavailable Allergies, Adverse Reactions, Alerts Substance Reaction Status Criticality lansoprazole Skin irritation Active No Informati on Medications Medication Instructions Dosage Effective Dates (start - stop) Status Comments lisinopril 10 mg tablet take 1 tablet by oral route every day 10 MG - Active buspirone 15 mg tablet take 1 tablet by oral route 2 times every day 15 MG - Active montelukast 10 mg tablet take 1 tablet by oral route every day in the evening 10 MG - Active topiramate 50 mg tablet take 1 tablet by oral route 2 times every day 50 MG - Active Lamictal 200 mg tablet take 1 tablet by oral route every day 200 MG - Active Folgard 2,000 unit-800 mcg-0.32 mg tablet - Active amlodipine 5 mg tablet take 1 tablet by oral route every day 5 MG - Active levothyroxine 150 mcg tablet take 1 tablet by oral route every day 150 MCG - Active Seroquel 100 mg tablet take 1 tablet by oral route 3 times every day 100 MG - Active Seroquel 50 mg tablet take 1 tablet by o ral route 2 times every day 50 MG - Active fluticasone 50 mcg/actuation nasal spray,suspension spray 1 - 2 spray by intranasal route every day in each nostril as needed 50-100 MCG - Active Spiriva Respimat 1.25 mcg/actuation solution for inhalation inhale 2 puff by inhalation route every day 2.5 MCG - Active Testone CIK 200 mg/mL intramuscular kit inject 0.25 milliliter by intramuscular route every 4 weeks 50 MG - Active Symbicort 160 mcg-4.5 mcg/actuation HFA aerosol inhaler inhale 2 puff by inhalation route 2 times every day in the morning and evening 2.00 puff - Active Uloric 40 mg tablet take 1 tablet by ora l route every day 40 MG - Active omeprazole 40 mg capsule,delayed release take 1 capsule by oral route every day before a meal 40 MG - Active Procedures Procedure Date Comp Oral Eval New/estab Patient 2017 Intraoral-complete Series (bw) 18 Oral Hygiene Instruction Advance Directives Directive Yes / No Effective Date File Name No Information Encounters Encounter Description Practice Location Reason(s) For Visit Diagnoses Date Provider Providers Copied on Encounter [facility], [address] [place] [address], [id number], tel:[phone] Dental Clinic Prophy (chief complaint) Encounter for screening for dental disorder 9 Irene Teixeira. [address] [place] [address], [id number], [place]. tel:[phone] 23 [facility], [address] [place] [address], [id number], [place] tel:[phone] Dental Clinic dental new (chief complaint) Encounter for screening for dental disorder 8 Jenn Torres. [address] [place] [address], [id number], [place]. tel:[phone] Family History Family Member Type Diagnosis Age At Onset Mother Problem (finding) stroke Father Problem (finding) Mother Problem (finding) Alive and well Payers Payer name Insurance type Covered democrat ID Authoreda tistephanie(s) D Medicaid [facility] [id number] Social History Type Description Quantity Date Captured Comments Alcohol Use Details Unknown Caffeine Use Details Unknown Tobacco Use Status Ex-cigarette smoker 019 Smoking Status Former smoker Sex Male Sexual Orientation Straight or heterosexual Nov Gender Identity Male Chief Complaint And Reason For Visit From encounter dated '04/10/2018 10:45'. Prophy (chief complaint). Description: Prophy Reason For Referral Reason For Referral No Information History Of Present Illness Encounter Date Complaint History Of Prese nt Illness Prophy Prophy dental new dental new, esta b dental care Functional Status Date Functional Assessmen t No Information Instructions Date Instruction Additional Infor mation No Information Assessments Type Assessment Date assessment Encounter for screening for dent al disorder Patient Care Teams Name Effective Dates (start - stop) Status Members No Information
--- OUTSIDE RECORDS SUMMARY | 2023-11-23 09:00 | XMS_ITS ---
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 Role Phone Akil Reeves MD Primary Care Provider Dandy Dennis Unavailable [phone] Allergies Allergen (clinical drug ingredient) Drug/Non Drug Allergy documented on EMR Reaction Allergy Type Onset Date Status sucralfate Carafate rash Drug Allergy Active mometasone Mometasone Furoate Laryngeal Spasm Drug Allergy Active REASON FOR VISIT 6MO-ASTHMA,OSMAR Medications Medication SIG (Take, Route, Frequency, Duration) Notes Start Date End Date Status Losartan Potassium 100 MG 1 tablet Orally Once a day Active Montelukast Sodium 10 MG 1 tablet Orally Once a day for 90 days Active Spiriva Respimat 1.25 MCG/ACT 2 puffs Inhalation Once a day for 90 days Active Symbicort 160-4.5 MCG/ACT 2 puffs Inhala tion Twice a day for 90 days Active Ventolin HFA 108 (90 Base) MCG/ACT 2 puffs as needed for SOB Inhalation every 4 hrs for 90 days Active Budesonide 0.5 MG/2ML 1 mL Inhalation Tw ice a day Active Colchicine 0.6 MG 1 tablet Orally Active Fasenra Pen 30 MG/ML as directed Subcutaneous Active Fluticasone Propionate 50 MCG/ACT 2 sprays in each nostril Nasally Once a day for 90 days Active LaMICtal 100 MG 1 tablet Orally Once a day Active Social History Tobacco Use: Social History Observation Description Date Details (start date - stop date) Former Smoker NA - NA Tobacco Use/Smoking Question Answer Notes Patient is a former smoker How long has it been since you last smoked? > 10 years Additional Findings: Tobacco Non-User Ex-light c igarette smoker (1-9/day) Tobacco Control (Standard) Question Answer Notes Tobacco use: Former smoker How long has it been since you last smoked? Grea ter than 10 years Additional Findings: Tobacco non-user Ex-light c igarette smoker (1-9/day) Vital Signs Weight 254.2 lbs 11/23/2023 Height 69 in 11/23/2023 Blood pressure systolic 155 mm Hg 11/23/19 Blood pressure diastolic 89 mm Hg 024 Temperature 96.6 degrees Fahrenheit 11/23/19 Heart Rate 74 /min 11/23/2023 Respiratory Rate 18 /min 11/23/2023 BMI 37.53 kg/m2 11/23/2023 Oximetry 96 % 11/23/2023 Encounters Encounter Location Date Provider Diagnosis Pulmonary Medicine [address] [address] 11/23/2023 Dandy Rachana Severe persistent asthma, uncomplicated J45.50 ; Obstructive sleep apnea G47.33 ; Seasonal allergic rhinitis due to pollen J30.1 ; Peripheral eosinophilia D72.19 ; 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 Rare reported albuterol use. He is very happy with his breathing. No complaints regarding his regimen. Continue it for now. Continue Q6M monitoring while on biologic. 11/23/2023 Obstructive sleep apnea (ICD-10 - G47.33) Ztiz-fe-qljr encounter performed with the patient to document continued need for PAP therapy. -Split-night study: 02/17/2022 -Original AHI: 80; Initial AHI starting BiPAP : 15 -Compliance was reviewed from: 10/22/2023 - 11/20/2023 -Total days used: 3030 (100%) -Total of all days >4 hours of use: 29/30 (97%) -Current mode & pressures: AirCurve 10 VAuto - BiPAP -Residual AHI: 1.5 -Air leak 95th%: 32.1L/min -Mask/harness fitting: No complaints today -Sleep quality: Good sleep quality, but admits to getting up to urinate 4-5 times a night -Daytime hypersomnolence: Diminished -Recommendations: Much improved compliance compared to last visit. No current issues with mask fitting or pressures. Discussed his frequent episodes of nocturia. Appears that drinking fluids prior to bedtime is the main instigating factor. The patient was counseled to limit fluids prior to bedtime.He is absolutely not to drink caffeine later in the evening; I explained that caffeine is a diuretic. He voiced understanding.Uma elilayo was encouraged to continue using the CPAP at bedtime and with naps. 11/23/2023 Seasonal allergic rhinitis due to pollen (ICD-10 - J30.1) No significant issues reported at this time. 11/23/2023 Peripheral eosinophilia (ICD-10 - D72.19) Continues to have marked improvement in asthma with Fasenra. 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 11/23/2023 History of tobacco abuse (ICD-10 - Z87.891) 1 pack/week x 20 years (<3 pack-years) This patient does not meet current LDCT criteria (e.g. age, time from cessation, # pack-years). 11/23/2023 Obesity, unspecified (ICD-10 - E66.9) Patient's weight is inducing a restrictive pulmonary physiology. Weight loss indicated: Decrease calories, increase activity. Plan Of Treatment Treatment Notes Assessment Notes Severe persistent asthma, uncomplicated He remains superbly controlled on Fasenra with >18 months prednisone and exacerbation free. Rare reported albuterol use. He is very happy with his breathing. No complaints regarding his regimen. Continue it for now. Continue Q6M monitoring while on biologic. Obstructive sleep apnea Cdfj-ic-dajj encounter performed with the patient to document continued need for PAP therapy. -Split-night study: 02/17/2022 -Original AHI: 80; Initial AHI starting BiPAP : 15 -Compliance was reviewed from: 10/22/2023 - 11/20/2023 -Total days used: 30 (100%) -Total of all days >4 hours of use: 29/30 (97%) -Current mode & pressures: AirCurve 10 VAuto - BiPAP -Residual AHI: 1.5 -Air leak 95th%: 32.1L/min -Mask/harness fitting: No complaints today -Sleep quality: Good sleep quality, but admits to getting up to urinate 4-5 times a night -Daytime hypersomnolence: Diminished -Recommendations: Much improved compliance compared to last visit. No current issues with mask fitting or pressures. Discussed his frequent episodes of nocturia. Appears that drinking fluids prior to bedtime is the main instigating factor. The patient was counseled to limit fluids prior to bedtime.He is absolutely not to drink caffeine later in the evening; I explained that caffeine is a diuretic. He voiced understanding.Patient was encouraged to continue using the CPAP at bedtime and with naps. Seasonal allergic rhinitis due to pollen No significant issues reported at this time. Peripheral eosinophilia Continues to have marked improvement in asthma with Fasenra. 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 History of tobacco abuse This patient does not meet current LDCT criteria (e.g. age, time from cessation, # pack-years). Obesity, unspecified Patient's weight is inducing a restrictive pulmonary physiology. Weight loss indicated: Decrease calories, increase activity. Next Appt Details Follow Up: 6 Months, Reason: Asthma, OSMAR Provider Name:Dandy Reich, 11/28/2024 02:30:00 PM, [address] [place], [address], Procedure Notes * Category Sub-Category Detail Notes PFT Data: 05/24/2023-FEV1/F VC: 74%-FEV1: 77%-FVC: 82%-KZE86-60%: 66%-Bronchodilator response:None-RV: 144%-T%-DLCO: 98%-Flow-volume loop: Moderate obstruction02/22/2022-FEV1/FVC: 74%-FEV1: 78%-FVC: 83%-EAS86-41%: 66%-Bronchodilator response: Partial in FEV1-RV: 93%-T%-DLCO: 94%-Flow-volume loop: Moderate qroirafmfvb82/22/2017-FEV1/FVC: 72%-FEV1: 66%-FVC: 74%-XQY98-42%: 50%-Bronchodilator response: Positive-RV: 134%-T%-DLCO: 87%-Flow-volume loop: Moderate obstruction05/12/2011-FEV1/FVC: 67%-FEV1: 69%-FVC: 83%-LXC86-25%: 51%-Bronchodilator response: Positive-RV: 242%-T%-DLCO: 87%-Flow-volume loop: Moderate obstruction Progress Notes * Edison WILD TDOB:1975 (48 yo M)Acc No.[id number]:11/23/2023 Follow Up Patient: Edison NGUYEN Provider: Kaylen Reich DO :1975 A ge:48 Y S ex:Male Date:11/23/2023 Address:[address] [place] [address] , [id number] Pcp:Akil Reeves MD Check In:12:52 PM ESTCheck O ut:01:23 PM EST Subjective: * Chief Complaints: * 6 MO-ASTHMA,OSMAR * HPI: E pworth Sleepiness Scale: Patient states he has been doing very well over the last 6 months. He is only used albuterol once. He has had no exacerbations of his asthma. He remains on Fasenra and believes it is working very well. He has not had any adverse effects from it. Remains on Symbicort and Spiriva. Reviewed his BiPAP compliance. He has excellent compliance. He states he sleeps very well with it and has decreased daytime hypersomnolence. He denies any issues with the mask fitting or pressures. He does get up to urinate approximately 4-5 times. On further questioning, he states he does drink quite a bit of fluids before going to bed time, including caffeinated beverages. MA Intake Comments:. Mazon Sleepiness Scale C klaus of dozing while sitting and reading:?1 - Slight Chance C klaus of dozing while watching TV: 1 - Slight Chance C klaus of dozing while sitting in a public place: 0 - Never C klaus of dozing as a passenger in a car for an hour without a break: 0 - Never C klaus of dozing while lying down in the afternoon to rest: 3 - High Chance C klaus of dozing while sitting and talking to someone: 0 - Never C klaus of dozing while sitting quietly after lunch: 1 - Slight Chance C klaus of dozing in a stopped car for a few minutes in traffic: 0 - Never T OTAL SCORE: 6 Patient presents for a follow up for Asthma/OSMAR. Patient denies any complaints or concerns with his PAP.DME:[facility]. Patient is compliant. Patient denies any Pulmonary complaints today. Patient is currently receiving Fasenra at home and reports his last injection to be 11/21/2023. Patient reports great benefit from Fasenra and states his breathing has significantly improved since starting Fasenra. Patient denies tobacco use. Patient is using Symbicort & Spiriva daily. Patient reports being in the [facility] ER recently on 11/03/2023 for chest pain. * ROS: G eneral/Constitutional: Fatigue d enies. F ever or sweats d enies. C hange of appetite d enies. C hills d enies. W eight Change d enies. ? H EENT: Dry mouth d enies. S ore throat d enies. D ry Eyes d enies. O ral Ulcers d enies. P ost Nasal Drip D enies. C ongestion?Denies. H oarseness D enies. C ardiovascular: Tachycardia d enies. C hest pain d enies. P alpitations d enies. R espiratory: Chest tightness d enies. P leurisy D enies. D yspnea w ith strenuous activity. C ough d enies. H emoptysis d enies. W heezing d enies. G astrointestinal: Acid Reflux/GERD/Heartburn d enies. D ysphagia d enies. M usculoskeletal: Arthralgias/joint pain D enies. S kin: Rash d enies. N eurologic: Tremor d enies. H ematology: Abnormal Bleeding d enies. P sychiatric: Anxiety d enies. 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 M aternal Grandmother: acute myocardial infarction. * Social History: T obacco Use: T obacco Control (Standard) T obacco use: F ormer smoker H ow long has it been since you last smoked??Greater than 10 years A dditional Findings: Tobacco non-user E x-light cigarette smoker (1-9/day) LM: Additional Tobacco Questions N umber of Years Pt Smoked: 2 0 ; Quit 2006 N umber of Packs per Day: 0 .809782 ~ 1 pack/week = 2.899986 pack-years Tobacco Use/Smoking P atient is a f ormer smoker H ow long has it been since you last smoked??> 10 years A dditional Findings: Tobacco Non-User E x-light cigarette smoker (1-9/day) M iscellaneous: O ccupation O ccupation: U nemployed [employer] Pets: dogs. D rugs/Alcohol: D rugs H ave you used drugs other than those for medical reasons in the past 12 months? N o D oes the Patient have a History of Drug Abuse in the Past? N o Caffeine I ntake: 1 -2 cups per day Do you drink alcohol?: Yes, Socially. Do you smoke marijuana?: Denies. * Medications: T akingBudesonide 0.5 MG/2ML Suspension 1 mL Inhalation Twice a day Colchicine 0.6 MG Tablet 1 tablet Orally Fasenra Pen(Benralizumab) 30 MG/ML Solution Auto-injector as directed Subcutaneous Fluticasone Propionate 50 MCG/ACT Suspension 2 sprays in each nostril Nasally Once a day LaMICtal(lamoTRIgine) 100 MG Tablet 1 tablet Orally Once a day Losartan Potassium 100 MG Tablet 1 tablet Orally Once a day Montelukast Sodium 10 MG Tablet 1 tablet Orally Once a day Spiriva Respimat(Tiotropium [place] Monohydrate) 1.25 MCG/ACT Aerosol Solution 2 puffs Inhalation Once a day Symbicort(Budesonide-Formoterol Fumarate) 160-4.5 MCG/ACT Aerosol 2 puffs Inhalation Twice a day Ventolin HFA(Albuterol Sulfate HFA) 108 (90 Base) MCG/ACT Aerosol Solution 2 puffs as needed for SOB Inhalation every 4 hrs Medication List reviewed and reconciled with the patientTaking Budesonide 0.5 MG/2ML Suspension 1 mL Inhalation Twice a day Taking Colchicine 0.6 MG Tablet 1 tablet Orally Taking Fasenra Pen(Benralizumab) 30 MG/ML Solution Auto-injector as directed Subcutaneous Taking Fluticasone Propionate 50 MCG/ACT Suspension 2 sprays in each nostril Nasally Once a day Taking LaMICtal(lamoTRIgine) 100 MG Tablet 1 tablet Orally Once a day Taking Losartan Potassium 100 MG Tablet 1 tablet Orally Once a day Taking Montelukast Sodium 10 MG Tablet 1 tablet Orally Once a day Taking Spiriva Respimat(Tiotropium [place] Monohydrate) 1.25 MCG/ACT Aerosol Solution 2 puffs Inhalation Once a day Taking Symbicort(Budesonide-Formoterol Fumarate) 160-4.5 MCG/ACT Aerosol 2 puffs Inhalation Twice a day Taking Ventolin HFA(Albuterol Sulfate HFA) 108 (90 Base) MCG/ACT Aerosol Solution 2 puffs as needed for SOB Inhalation every 4 hrs Medication List reviewed and reconciled with the patient * Allergies: M ometasone Furoate: Laryngeal Spasm - Side EffectsCarafate: rash - Allergyno[Allergies Verified] Objective: * Vitals: W t:254.2lbs, Ht: 69 in, BP:sittin/89mm Hg, Temp:Forehead:96.6F, HR:74/min, RR:18/min, BMI:37.53Index, Oxygen sat %:Room Air:96%, Peak Flow:440I/min, Ht-cm: 175.26 cm, Wt-k.3 kg. * Examination: E xam: GENERAL APPEARANCE: A ppears stated age. NASAL: N adri intonation to voice (chronic). Skin N ormal. Mouth P ink and moist. Missing teeth/poor dentition. No candidiasis. Oropharynx/Tongue M allampati Class III. Trachea M idline. Chest N ormal. Respiratory Normal M ovements, E ffort N ormal. Auscultation G ood breath sounds bilaterally without wheezes, crackles, or rhonchi. Cardiac R egular rate and rhythm. Gastrointestinal M ildly increased central adiposity. Vascular N o edema. Musculoskeletal N ormal posture. Neurological F ocal, intact. Psychiatric A lert and oriented x3. Mentation/Cognition N ormal. Assessment: * Assessment: 1. S evere persistent asthma, uncomplicated - J45.50 (Primary), Prior inhalers: Breo - Laryngospasm (07/2018), Dulera - Laryngospasm (06/2018), Pulmicort - Ineffective 2 . O bstructive sleep apnea - G47.33 3 . S easonal allergic rhinitis due to pollen - J30.1 4 . P eripheral eosinophilia - D72.19 5 . L mi term (current) use of inhaled steroids - Z79.51 6 . History of tobacco abuse - Z87.891, 1 pack/week x 20 years (<3 pack- years) 7 . O besity, unspecified - E66.9 Plan: * Treatment: 2. O bstructive sleep apnea Notes: Ibyh-nv-exnn encounter performed with the patient to document continued need for PAP therapy. -Split-night study: 02/17/2022 -Original AHI: 80; Initial AHI starting BiPAP : 15 -Compliance was reviewed from: 10/22/2023 - 11/20/2023 -Total days used: 30/30 (100%) -Total of all days >4 hours of use: 29/30 (97%) -Current mode & pressures: AirCurve 10 VAuto - BiPAP 18/ -Residual AHI: 1.5 -Air leak 95th%: 32.1L/min -Mask/harness fitting: No complaints today -Sleep quality: Good sleep quality, but admits to getting up to urinate 4-5 times a night -Daytime hypersomnolence: Diminished -Recommendations: Much improved compliance compared to last visit. No current issues with mask fitting or pressures. Discussed his frequent episodes of nocturia. Appears that drinking fluids prior to bedtime is the main instigating factor. The patient was counseled to limit fluids prior to bedtime.He is absolutely not to drink caffeine later in the evening; I explained that caffeine is a diuretic. He voiced understanding.Patient was encouraged to continue using the CPAP at bedtime and with naps. 3. S easonal allergic rhinitis due to pollen Notes: No significant issues reported at this time. 4. P eripheral eosinophilia Notes: Continues to have marked improvement in asthma with Fasenra. 5. L mi term (current) use of inhaled steroids Notes: Patient was counseled to rinse & gargle with water after inhaled corticosteroid use. 6. H istory of tobacco abuse Notes: This patient does not meet current LDCT criteria (e.g. age, time from cessation, # pack-years).? 7. O besity, unspecified Notes: Patient's weight is inducing a restrictive pulmonary physiology. Weight loss indicated: Decrease calories, increase activity. * Procedures: P FT: Data: 05/24/2023 -FEV1/FVC: 74% -FEV1: 77% -FVC: 82% -YEU19-73%: 66% -Bronchodilator response:None -RV: 144% -T% -DLCO: 98% -Flow-volume loop: Moderate obstruction 02/22/2022 -FEV1/FVC: 74% -FEV1: 78% -FVC: 83% -SNU37-47%: 66% -Bronchodilator response: Partial in FEV1 -RV: 93% -T% -DLCO: 94% -Flow-volume loop: Moderate obstruction 01/28/2017 -FEV1/FVC: 72% -FEV1: 66% -FVC: 74% -OZZ82-31%: 50% -Bronchodilator response: Positive -RV: 134% -T% -DLCO: 87% -Flow-volume loop: Moderate obstruction 05/12/2011 -FEV1/FVC: 67% -FEV1: 69% -FVC: 83% -QKX61-30%: 51% -Bronchodilator response: Positive -RV: 242% -T% -DLCO: 87% -Flow-volume loop: Moderate obstruction. * Procedure Codes: * Preventive Medicine: COVID Vaccination: H as patient had COVID Vaccination? COVID Vaccination N o Patient Declined/Refused Immunization Status: P neumovacc P t Refused. I nfluenza P t Refused. Screenings/Counseling: F ALL RISK SCREENING Fall Risk Assessment: N o falls in the past year Are you afraid of falling? N o T OBACCO ACTION PLAN Patient counselled on the dangers of tobacco use and urged to quit. 1 Former Education on smoking effects provided?11/23/2023 Former F JON EXCLUSION Reason: P atient Reason refused/declined Type of Patient Reason: D rug declined by patient B TX ACTION PLAN Above Normal BMI Follow-up D ietary management education, guidance, and counseling * Follow Up: 6 Months (Reason: Asthma, OSMAR) * * Sign off status: Completed Visit Status: C HK (Check Out) true * Provider: Kaylen Reich DO Date: Generated for Preet crawford/Ranjana/Poloitting on: 0 09/04/2024 09:56 AM EDT History and Physical Notes * HPI (History of Present Illness) Category Sub-Category Detail Notes Category Not es Mazon Sleepiness Scale Mazon Sleepiness Scale Chance of dozing while sitting and reading:: 1 - Slight Chance Patient presents for a follow up for Asthma/OSMAR. Patient denies any complaints or concerns with his PAP.DME:[facility]. Patient is compliant. Patient denies any Pulmonary complaints today. Patient is currently receiving Fasenra at home and reports his last injection to be 11/21/2023. Patient reports great benefit from Fasenra and states his breathing has significantly improved since starting Fasenra. Patient denies tobacco use. Patient is using Symbicort & Spiriva daily. Patient reports being in the [facility] ER recently on 11/03/2023 for chest pain. Chance of dozing while watching TV:: 1 - Slight Chance Chance of dozing while sitting in a publ ic place:: 0 - Never Chance of dozing as a passen rosita in a car for an hour without a break:: 0 - Never Chance of dozing while lying down in the afternoon to rest:: 3 - High Chance Chance of dozing while sitting and talki ng to someone:: 0 - Never Chance of dozing while sitting quietly a fter lunch:: 1 - Slight Chance Chance of dozing in a stopped car for a few minutes in traffic:: 0 - Never TOTAL SCORE:: 6 Examination Category Sub-Category Detail Notes Category Not es Exam GENERAL APPEARANCE: Appears stated age HEAD: EYES: OPHTH: EARS: OTOSCOPE: NASAL: Nasal intonation to voice (chronic) Constitutional: Skin Normal Mouth [place] and moist. Miss ing teeth/poor dentition. No candidiasis Trachea Midline Chest Normal Respiratory Normal Movements, Ef fort Normal Auscultation Good breath sounds b ilaterally without wheezes, crackles, or rhonchi Percussion Egophony Bronchophony Fremitus Whispered pectoriloquy Cardiac Regular rate and rhy thm Gastrointestinal Mildly increased yoan tral adiposity Vascular No edema Musculoskeletal Normal posture Neurological Focal, intact Psychiatric Alert and oriented x 3 Mentation/Cognition Normal Oropharynx/Tongue Mallampati Class III
--- OUTSIDE RECORDS SUMMARY | 2024-05-23 09:30 | XMS_ITS ---
Author Organization [facility] in [place] Address [address] [place] [address] Care Team Providers Care Gas Pumper Name Role Phone Akil Reeves MD Primary Care Provider Dandy Dennis Unavailable [phone] Allergies Allergen (clinical drug ingredient) Drug/Non Drug Allergy documented on EMR Reaction Allergy Type Onset Date Status sucralfate Carafate rash Drug Allergy Active formoterol / mometasone Dulera Laryngospasm Drug Allergy Active fluticasone / vilanterol Breo Ellipta Laryngospasm Drug Allergy Active REASON FOR VISIT 6MO-ASTHMA,OSMAR Medications Medication SIG (Take, Route, Frequency, Duration) Notes Start Date End Date Status Fasenra Pen 30 MG/ML as directed Subcutaneous Active Fluticasone Propionate 50 MCG/ACT 2 sprays in each nostril Nasally Once a day for 90 days Active Budesonide 0.5 MG/2ML 1 mL Inhalation Tw ice a day Active Colchicine 0.6 MG 1 tablet Orally Active Ventolin HFA 108 (90 Base) MCG/ACT 2 puffs as needed for SOB Inhalation every 4 hrs for 90 days Active Phentermine HCl 37.5 MG TAKE ONE TABLET BY MOUTH ONCE DAILY Oral for 30 Days Active Spiriva Respimat 1.25 MCG/ACT 2 puffs Inhalation Once a day for 90 days Active Losartan Potassium 100 MG 1 tablet Orally Once a day Active Montelukast Sodium 10 MG 1 tablet Orally Once a day for 90 days Active Symbicort 160-4.5 MCG/ACT 2 puffs Inhala tion Twice a day for 90 days Active LaMICtal [...] c igarette smoker (1-9/day) Vital Signs Weight 237.0 lbs 05/23/2024 Height 69 in 05/23/2024 Blood pressure systolic 146 mm Hg 05/24/19 25 Blood pressure diastolic 81 mm Hg 025 Temperature 96.8 degrees Fahrenheit 05/24/19 25 Heart Rate 69 /min 05/23/2024 Respiratory Rate 18 /min 05/23/2024 BMI 34.99 kg/m2 05/23/2024 Oximetry 94 % 05/23/2024 Encounters Encounter Location Date Provider Diagnosis Pulmonary Medicine [address] [address] 05/23/2024 Dandy Reich Severe persistent asthma, uncomplicated J45.50 ; Obstructive sleep apnea G47.33 ; Peripheral eosinophilia D72.19 ; superintendent 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 Albuterol use remains low. Continues to use Symbicort + Spiriva. Given his impressive response to Fasenra, discussed stepping down therapy. Patient voiced agreement. Will stop Spiriva for now and see how he does off it. If symptoms return, he may restart Spiriva. Continue Symbicort 160 @ 2 puffs BID. Continue Fasenra. F/U 6 months. 05/23/2024 Obstructive sleep apnea (ICD-10 - G47.33) Vpbs-rf-nlci encounter performed with the patient to document continued need for PAP therapy. -Split-night study: 02/17/2022 -Original AHI: 80; Initial AHI starting BiPAP : 15 -Compliance was reviewed from: 04/18/2024 - 05/17/2024 -Total days used: 29/30 (97%) -Total of all days >4 hours of use: 28/30 (93%) -Current mode & pressures: AirCurve 10 VAuto - BiPAP 18/ -Residual AHI: 1 -Air leak (median): 6.7L/min -Mask/harness fitting: Occasionally has to tighten strap, but otherwise no complaints. -Sleep quality: Improved with decreasing afternoon/evening caffeine & fluid intake leading to fewer nocturnal awakenings to urinate. -Daytime hypersomnolence: Improved with PAP -Recommendations: Excellent compliance today. Doing better having decreased fluid intake. Great response to therapy with reduction of AHI from 80 to 1. No plans to change any pressures today. Continue PAP @ HS & naps. 05/23/2024 Peripheral eosinophilia (ICD-10 - D72.19) Continuing Fasenra. 05/23/2024 USP (current) use of inhaled steroids (ICD-10 - Z79.51) Patient was counseled to rinse & gargle with water after inhaled corticosteroid use. 05/23/2024 History of tobacco abuse (ICD-10 - Z87.891) 1 pack/week x 20 years (<3 pack-years) This patient does not meet current LDCT criteria (e.g. age, time from cessation, # pack-years). 05/23/2024 Obesity, unspecified (ICD-10 - E66.9) Patient's weight is inducing a restrictive pulmonary physiology. Weight loss indicated: Decrease calories, increase activity. Plan Of Treatment Treatment Notes Assessment Notes Severe persistent asthma, uncomplicated Prior treatment: Fasenra; Symbicort + Spiriva > Breo - Laryngospasm (07/2018), Dulera - Laryngospasm (06/2018), Pulmicort - Ineffective Continues to do extremely well on Fasenra for now ~2 years without any exacerbations or prednisone bursts. Albuterol use remains low. Continues to use Symbicort + Spiriva. Given his impressive response to Fasenra, discussed stepping down therapy. Patient voiced agreement. Will stop Spiriva for now and see how he does off it. If symptoms return, he may restart Spiriva. Continue Symbicort 160 @ 2 puffs BID. Continue Fasenra. F/U 6 months. Obstructive sleep apnea Tgqe-qm-rqne encounter performed with the patient to document continued need for PAP therapy. -Split-night study: 02/17/2022 -Original AHI: 80; Initial AHI starting BiPAP 18/13: 15 -Compliance was reviewed from: 04/18/2024 - 05/17/2024 -Total days used: (97%) -Total of all days >4 hours of use: 28/ (93%) -Current mode & pressures: AirCurve 10 VAuto - BiPAP 18/13 -Residual AHI: 1 -Air leak (median): 6.7L/min -Mask/harness fitting: Occasionally has to tighten strap, but otherwise no complaints. -Sleep quality: Improved with decreasing afternoon/evening caffeine & fluid intake leading to fewer nocturnal awakenings to urinate. -Daytime hypersomnolence: Improved with PAP -Recommendations: Excellent compliance today. Doing better having decreased fluid intake. Great response to therapy with reduction of AHI from 80 to 1. No plans to change any pressures today. Continue PAP @ HS & naps. Peripheral eosinophilia Continuing Fasenra. superintendent terminal (current) use of i nhaled steroids Patient was counseled to rinse & gargle with water after inhaled corticosteroid use. History of tobacco abuse This patient does not meet current LDCT criteria (e.g. age, time from cessation, # pack-years). Obesity, unspecified Patient's weight is inducing a restrictive pulmonary physiology. Weight loss indicated: Decrease calories, increase activity. Next Appt Details Follow Up: 6 Months, Reason: Asthma Provider Name:Dandy Reich, 11/28/2024 02:30:00 PM, [address] [place], [address], Procedure Notes * Category Sub-Category Detail Notes PFT Data: 05/24/2023-FEV1/F VC: 74%-FEV1: 77%-FVC: 82%-XRG79-77%: 66%-Bronchodilator response:None-RV: 144%-T%-DLCO: 98%-Flow-volume loop: Moderate obstruction02/22/2022-FEV1/FVC: 74%-FEV1: 78%-FVC: 83%-ZBT99-58%: 66%-Bronchodilator response: Partial in FEV1-RV: 93%-T%-DLCO: 94%-Flow-volume loop: Moderate srjkpgswyet34/22/2017-FEV1/FVC: 72%-FEV1: 66%-FVC: 74%-NDR48-87%: 50%-Bronchodilator response: Positive-RV: 134%-T%-DLCO: 87%-Flow-volume loop: Moderate obstruction05/12/2011-FEV1/FVC: 67%-FEV1: 69%-FVC: 83%-EDJ70-76%: 51%-Bronchodilator response: Positive-RV: 242%-T%-DLCO: 87%-Flow-volume loop: Moderate obstruction Progress Notes * Edison WILD TDOB:1975 (49 yo M)Acc No.[id number]:05/23/2024 Follow Up Patient: Edison NGUYEN Provider: Kaylen Reich DO :1975 A ge:49 Y S ex:Male Date:05/23/2024 Address:[address] [place] [address] , [facility] Pcp:Akil Reeves MD Check In:01:22 PM ESTCheck O ut:01:55 PM EST Subjective: * Chief Complaints: * 6 MO-ASTHMA,OSMAR * HPI: E pworth Sleepiness Scale: Patient is here for asthma and OSMAR. Asthma: Patient continues to have an excellent response to Fasenra. It has now been ~2 years since starting it - he has not required any prednisone bursts, no UC/ER visits. He continues to use Symbicort 160 and Spiriva 1.25. Very rare albuterol use, typically when he has a cold, etc. OSMAR: He continues to have excellent compliance with his PAP. No complaints about the pressures or mask fitting. He has limited his caffeine and fluid intake in the afternoon/evening which has decreased his awakenings to urinate. MA Intake Comments:. [place] Sleepiness Scale C klaus of dozing while sitting and reading:?1 - Slight Chance C klaus of dozing while watching TV: 1 - Slight Chance C klaus of dozing while sitting in a public place: 1 - Slight Chance C klaus of dozing as a passenger in a car for an hour without a break: 0 - Never C klaus of dozing while lying down in the afternoon to rest: 0 - Never C klaus of dozing while sitting and talking to someone: 0 - Never C klaus of dozing while sitting quietly after lunch: 0 - Never C klaus of dozing in a stopped car for a few minutes in traffic: 0 - Never T OTAL SCORE: 3 Patient presents for a follow-up for Asthma/OSMAR. Patient is currently receiving Fasenra at home and reports his last injection to be 05/21/2024. Patient reports great benefit. Patient denies ER visits, Hospitalizations & steroid use. Patient is using Symbicort & Spiriva daily with benefit. Patient reports rare albuterol use. Patient states his breathing has improved significantly since starting Fasenra. Patient is currently wearing a PAP at and reports good benefit. DME:[facility]. Patient denies any issues or concerns with his machine. * ROS: G eneral/Constitutional: Fatigue d enies. [...] as thma, uncomplicated Modified On:11/23/2022 Status:confirmed Z79.51 superintendent terminal (current) use of inhaled steroids Modified On:11/23/2022U Status:confirmed G47.33 Obstructive sleep ap venu Modified [...] N umber of Packs per Day: 0 .680195 ~ 1 pack/week = 2.432565 pack-years Tobacco Use/Smoking P atient is a f ormer smoker H ow long has it been since you last smoked??> 10 years A dditional Findings: Tobacco Non-User E x-light cigarette smoker (1-9/day) * Medications: T akingBudesonide 0.5 MG/2ML Suspension [...] Tablet 1 tablet Orally Once a day Phentermine HCl 37.5 MG Tablet TAKE ONE TABLET BY MOUTH ONCE DAILY Oral Spiriva Respimat(Tiotropium [place] Monohydrate) 1.25 MCG/ACT Aerosol Solution 2 puffs [...] 1 tablet Orally Once a day Taking Phentermine HCl 37.5 MG Tablet TAKE ONE TABLET BY MOUTH ONCE DAILY Oral Taking Spiriva Respimat(Tiotropium [place] Monohydrate) 1.25 MCG/ACT Aerosol Solution 2 puffs Inhalation Once a day Taking Symbicort(Budesonide-Formoterol Fumarate) 160-4.5 MCG/ACT Aerosol 2 puffs Inhalation Twice a day Taking Ventolin HFA(Albuterol Sulfate HFA) 108 (90 Base) MCG/ACT Aerosol Solution 2 puffs as needed for SOB Inhalation every 4 hrs Medication List reviewed and reconciled with the patient * Allergies: C arafate: rash - AllergyBreo Ellipta: LaryngospasmDulera: Laryngospasm Objective: * Vitals: W t:237.0lbs, Ht: 69 in, BP:sittin/81mm Hg, Temp:Forehead:96.8F, HR:69/min, RR:18/min, BMI:34.99Index, Oxygen sat %:Room Air:94%, Peak Flow:510I/min, Ht-cm: 175.26 cm, Wt-k.5 kg. * Examination: E xam: GENERAL APPEARANCE: A ppears stated age. NASAL: N adri intonation to voice (chronic). Skin N ormal. Mouth P ink and moist. Missing teeth/poor dentition. No candidiasis. Oropharynx/Tongue M allampati Class III. Trachea M idline. Chest N ormal. Respiratory Normal M ovements, E ffort N ormal. Auscultation C ontinues to have clear breath sounds. Cardiac R egular rate and rhythm. Gastrointestinal N ormal. Vascular N o edema. Musculoskeletal N ormal posture. Neurological F ocal, intact. Psychiatric A lert and oriented x3. Mentation/Cognition N ormal. Assessment: * Assessment: 1. S evere persistent asthma, uncomplicated - J45.50 (Primary) 2 . O bstructive sleep apnea - G47.33 3 . P eripheral eosinophilia - D72.19 4 . L mi term (current) use of inhaled steroids - Z79.51 5 . H istory of tobacco abuse - Z87.891 N otes :1 pack/week x 20 years (<3 pack-years) 6 . O besity, unspecified - E66.9 Plan: * Treatment: 2. O bstructive sleep apnea Notes: Pyke-fb-hgmi encounter performed with the patient to document continued need for PAP therapy. -Split-night study: 02/17/2022 -Original AHI: 80; Initial AHI starting BiPAP : 15 -Compliance was reviewed from: 04/18/2024 - 05/17/2024 -Total days used: (97%) -Total of all days >4 hours of use: 28 (93%) -Current mode & pressures: AirCurve 10 VAuto - BiPAP 18/ -Residual AHI: 1 -Air leak (median): 6.7L/min -Mask/harness fitting: Occasionally has to tighten strap, but otherwise no complaints. -Sleep quality: Improved with decreasing afternoon/evening caffeine & fluid intake leading to fewer nocturnal awakenings to urinate. -Daytime hypersomnolence: Improved with PAP -Recommendations: Excellent compliance today. Doing better having decreased fluid intake. Great response to therapy with reduction of AHI from 80 to 1. No plans to change any pressures today. Continue PAP @ HS & naps. 3. P eripheral eosinophilia Notes: Continuing Fasenra. 4. L mi term (current) use of inhaled steroids Notes: Patient was counseled to rinse & gargle with water after inhaled corticosteroid use. 5. H istory of tobacco abuse Notes: This patient does not meet current LDCT criteria (e.g. age, time from cessation, # pack-years).? 6. O besity, unspecified Notes: Patient's weight is inducing a restrictive pulmonary physiology. Weight loss indicated: Decrease calories, increase activity. * Procedures: P FT: Data: 05/24/2023 -FEV1/FVC: 74% -FEV1: 77% -FVC: 82% -PTS87-41%: 66% -Bronchodilator response:None -RV: 144% -T% -DLCO: 98% -Flow-volume loop: Moderate obstruction 02/22/2022 -FEV1/FVC: 74% -FEV1: 78% -FVC: 83% -QVL19-61%: 66% -Bronchodilator response: Partial in FEV1 -RV: 93% -T% -DLCO: 94% -Flow-volume loop: Moderate obstruction 01/28/2017 -FEV1/FVC: 72% -FEV1: 66% -FVC: 74% -XSM54-17%: 50% -Bronchodilator response: Positive -RV: 134% -T% -DLCO: 87% -Flow-volume loop: Moderate obstruction 05/12/2011 -FEV1/FVC: 67% -FEV1: 69% -FVC: 83% -NRD65-59%: 51% -Bronchodilator response: Positive -RV: 242% -T% [...] of tobacco use and urged to quit. 0 05/23/2024 Former Education on smoking effects provided?05/23/2024 Former F JON EXCLUSION Reason: P atient Reason refused/declined Type of Patient Reason: D rug declined by patient B [place] ACTION PLAN Above Normal BMI Follow-up D ietary management education, guidance, and counseling * Follow Up: 6 Months (Reason: Asthma) * * Sign off status: Completed Visit Status: C HK (Check Out) true * Provider: Kaylen Reich DO Date: 0 05/23/2024 Generated for Preet crawford/Ranjana/eTashleighsmitting on: 0 09/04/2024 09:56 AM EDT History and Physical Notes * HPI (History of Present Illness) Category Sub-Category Detail Notes Category Not es [place] Sleepiness Scale [place] Sleepiness Scale Chance of dozing while sitting and reading:: 1 - Slight Chance Patient presents for a follow-up for Asthma/OSMAR. Patient is currently receiving Fasenra at home and reports his last injection to be 05/21/2024. Patient reports great benefit. Patient denies ER visits, Hospitalizations & steroid use. Patient is using Symbicort & Spiriva daily with benefit. Patient reports rare albuterol use. Patient states his breathing has improved significantly since starting Fasenra. Patient is currently wearing a PAP at and reports good benefit. DME:[facility]. Patient denies any issues or concerns with his machine. Chance of dozing while watching TV:: 1 - Slight Chance Chance of dozing while sitting in a publ ic place:: 1 - Slight Chance Chance of dozing as a passen rosita in a car for an hour without a break:: 0 - Never Chance of dozing while lying down in the afternoon to rest:: 0 - Never Chance of dozing while sitting and talki ng to someone:: 0 - Never Chance of dozing while sitting quietly a fter lunch:: 0 - Never Chance of dozing in a stopped car for a few minutes in traffic:: 0 - Never TOTAL SCORE:: 3 Examination Category Sub-Category Detail Notes Category Not es Exam GENERAL APPEARANCE: Appears stated age HEAD: EYES: OPHTH: EARS: OTOSCOPE: NASAL: Nasal intonation to voice (chronic) Constitutional: Skin Normal Mouth [place] and moist. Miss ing teeth/poor dentition. No candidiasis Trachea Midline Chest Normal Respiratory Normal Movements, Ef fort Normal Auscultation Continues to have cl ear breath sounds Percussion Egophony Bronchophony Fremitus Whispered pectoriloquy Cardiac Regular rate and rhy thm Gastrointestinal Normal Vascular No edema Musculoskeletal Normal posture Neurological Focal, intact Psychiatric Alert and oriented x 3 Mentation/Cognition Normal Oropharynx/Tongue Mallampati Class III
--- OUTSIDE RECORDS SUMMARY | 2024-07-23 04:53 | XMS_ITS ---
Author Organization [facility] in [place] Address [address] [place] [address] Care Team Providers Care Manager Multimedia Name Role Phone Akil Reeves MD Primary Care Provider Dandy Dennis Unavailable [phone] REASON FOR VISIT Symbicort Medications Medication SIG (Take, Route, Frequency, Duration) Notes Start Date End Date Status Ventolin HFA 108 (90 Base) MCG/ACT 2 puffs as needed for SOB Inhalation every 4 hrs for 90 days Active Fasenra Pen 30 MG/ML as directed Subcutaneous Active Spiriva Respimat 1.25 MCG/ACT 2 puffs Inhalation Once a day for 90 days Dispense # 3 inhalers Active Symbicort 160-4.5 MCG/ACT 2 puffs Inhalation Twice a day for 90 days Rinse after use; Dispense # 3 inhalers Active Encounters Encounter Location Date Provider Diagnosis Pulmonary Medicine [facility] [address] [place] [address] 07/23/2024 Dandy Reich Severe persistent asthma, uncomplicated J45.50 Assessments Encounter Date Diagnosis (ICD Code) Assessment Notes Treatment Notes Treatment Clinical Notes Section Notes 07/23/2024 Severe persistent asthma, uncomplicated (ICD-10 - J45.50) Prior inhalers: Breo - Laryngospasm (07/2018), Dulera - Laryngospasm (06/2018), Pulmicort - Ineffective Plan Of Treatment Medication Medication Name Sig Start Date Stop Date Notes Budesonide 0.5 MG/2ML 1 mL Inhalation Twice a day Ventolin HFA 108 (90 Base) MCG/ACT 2 puffs as needed for SOB Inhalation every 4 hrs for 90 days Fasenra Pen 30 MG/ML as directed Subcutaneous Spiriva Respimat 1.25 MCG/ACT 2 puffs Inhalation Once a day for 90 days Symbicort 160-4.5 MCG/ACT 2 puffs Inhala tion Twice a day for 90 days Next Appt Details Provider Name:Dandy Reich, 11/28/2024 02:30:00 PM, [address] [place], [address], Progress Notes * TORRIEdison TDOB:1975 (49 yo M)Acc No.[id number]:07/23/2024 Patient: Edison NGUYEN :1975 A ge:49 Y S ex:Male Address:[facility] [address] [place], [address] * Refills Continue Fasenra Pen Solution Auto-injector, 30 MG/ML, Subcutaneous, as directed Stop Budesonide Suspension, 0.5 MG/2ML, Inhalation, 1 mL, Twice a day Refill Spiriva Respimat Aerosol Solution, 1.25 MCG/ACT, Inhalation, 3 each, 2 puffs, Once a day, 90 days, Refills=4 Refill Symbicort Aerosol, 160-4.5 MCG/ACT, Inhalation, 3 each, 2 puffs, Twice a day, 90 days, Refills=4 Refill Ventolin HFA Aerosol Solution, 108 (90 Base) MCG/ACT, Inhalation, 3 each, 2 puffs as needed for SOB, every 4 hrs, 90 days, Refills=4 Subjective: * Chief Complaints: * S ymbicort * Medical History: * Surgical History: * Hospitalization/Major Diagno stic Procedure: * Medications: Objective: * Vitals: * Physical Examination: Assessment: * Assessment: 1. S evere persistent asthma, uncomplicated - J45.50 (Primary) N otes :Prior inhalers: Breo - Laryngospasm (07/2018), Dulera - Laryngospasm (06/2018), Pulmicort - Ineffective Plan: * Treatment: * Procedure Codes: * true * Date: Generated for Printi ng/Faneliag/eTransmitting on: 0 09/04/2024 09:56 AM EDT
[2024-09-04 09:49] VITALS: BP 180/123; PULSE 92; TEMP 36.8; O2SAT 95; BMI 33.3
--- OUTSIDE RECORDS SUMMARY | 2024-09-04 09:56 | XMS_ITS | Clinical Summary ---
Author Organization [facility] Address [id number] [address] [place] [address] Care Team Providers Care Math Teacher Name Role Phone Josephine Thornton MD Primary Care Provider [phone] Allergies No known active allergies Medications DULoxetine (CYMBALTA) 30 mg capsule 1 Active ergocalciferol (DRISDOL) 1,250 mcg (50,000 unit) capsule 1 Active fluticasone propionate (FLONASE) 50 mcg/actuation nasal spray 1 Active omeprazole (PriLOSEC) 40 mg capsule 1 Active metoprolol tartrate (LOPRESSOR) 25 mg tablet 1 Active levothyroxine (SYNTHROID, LEVOTHROID) 175 MCG tablet TAKE ONE TABLET IN THE MORNING 1 Active lisinopriL (PRINIVIL,ZESTR IL) 10 mg tablet Take 10 mg by mouth daily. 1 Active QUEtiapine (SEROquel) 50 mg tablet 1 Active BD LUER-SHEY SYRINGE 3 mL 23 x 1 syringe USE TO INJECT TESTOSTERONE 1 Active testosterone cypionate (DEPOTESTOTERON E CYPIONATE) 200 mg/mL injection INJECT 12 ML IM EVERY 2 WEEKS 1 Active SPIRIVA RESPIMAT 1.25 mcg/actuation mist 1 Active topiramate (TOPAMAX) 100 mg tablet 1 Active levothyroxine (SYNTHROID, LEVOTHROID) 200 MCG tablet 1 Active lamoTRIgine (LaMICtal) 25 mg tablet 1 Active SYMBICORT 160-4.5 mcg/actuation inhaler Inhale 2 puffs 2 (two) times a day. 1 Active aspirin 81 mg 1 Active amLODIPine (NORVASC) 10 mg tablet 1 Active albuterol (PROVENTIL HFA;VENTOLIN HFA) 90 mcg/actuation inhaler 1 Active febuxostat (ULORIC) 40 mg tablet Take 40 mg by mouth daily. Active sucralfate (CARAFATE) 1 gram tablet Take 1 g by mouth 4 (four) times a day. Active Active Problems No known active problems Family History Relation Name Status Comments Brother Alive Father Mother Alive Sister Alive Son Alive Social History Tobacco Use Types Packs/Day Years Used Date Smoking Tobacco: Former Cigarettes Q uit: 2010 Smokeless Tobacco: Never Alcohol Use Standard Drinks/Week Comments Yes 0 (1 standard drink = 0.6 oz pur e alcohol) Childcare Answer Date Recorded Childcare Unknown 07/18/2018 Employment Answer Date Recorded Employment Unknown 07/18/2018 Purpose - Life Answer Date Recorded Purpose and direction in life Unknown Sex and Gender Information Value Date Recorded Sex Assigned at Not on file Legal Sex Male 6:00 PM EDT Gender Identity Not on file Sexual Orientation Not on file Last Filed Vital Signs Vital Sign Reading Time Taken Comments Blood Pressure 130/76 10/10/2020 9:31 AM EDT Pulse - - Temperature 36.7 C (98 F) 10/10/2020 9:31 AM EDT Respiratory Rate - - Oxygen Saturation - - Inhaled Oxygen Concentration - - Weight 104.3 kg (230 lb) 10/10/2020 9:31 AM EDT Height 177.8 cm (5' 10 ) 10/10/2020 9:31 AM EDT Body Mass Index 33 10/10/2020 9:31 AM EDT Plan of Treatment Health Maintenance Due Date Last Done Comments Depression Screening 1987 Tobacco Screening 1987 Adult BMI Screening 1993 Influenza Vaccine 10/08/2024 12/10/2014, 03/21/2009 Colonoscopy 10/22/2025 10/22/2020 DTaP,Tdap and Td Vaccines (2 - Tdap) 05/12/2030 04/0 06/2020 Medical Devices Not on file Procedures Procedure Name Priority Date/Time Associated Diagnosis Comments COLONOSCOPY Routine 10/22/2020 Screening for cancer from Last 3 Months or Most Recently Relevant to Health Maintenance Results * Colonoscopy (10/22/2020) us Gregorio De La O DO GI PROCEDURE ORDERABLES Fin al Result MANUALLY TRANSCRIBED RESULTS from Last 3 Months or Most Recently Relevant to Health Maintenance Insurance [employer] Care Teams Math Teacher Relationship Specialty Start Date End Date Josephine Thornton MD PCP - General Family Medicine 11/29/16
--- OUTSIDE RECORDS SUMMARY | 2024-09-04 09:56 | XMS_ITS | Patient Health Record ---
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 Name Role Phone Akil Reeves MD Primary Care Provider Dandy Dennis [phone] Allergies Allergen (clinical drug ingredient) Drug/Non Drug Allergy documented on EMR Reaction Allergy Type Onset Date Status sucralfate Carafate rash Drug Allergy Active formoterol / mometasone Dulera Laryngospasm Drug Allergy Active fluticasone / vilanterol Breo Ellipta Laryngospasm Drug Allergy Active Reason For Referral No Information Medications Medication SIG (Take, Route, Frequency, Duration) Notes Start Date End Date Status LaMICtal 100 MG 1 tablet Orally Once a day Active Fluticasone Propionate 50 MCG/ACT 2 sprays in each nostril Nasally Once a day for 90 days Active Ventolin HFA 108 (90 Base) MCG/ACT 2 puffs as needed for SOB Inhalation every 4 hrs for 90 days Active Phentermine HCl 37.5 MG TAKE ONE TABLET BY MOUTH ONCE DAILY Oral for 30 Days Active Losartan Potassium 100 MG 1 tablet Orally Once a day Active Fasenra Pen 30 MG/ML as directed Subcutaneous Active Montelukast Sodium 10 MG 1 tablet Orally Once a day for 90 days Active Spiriva Respimat 1.25 MCG/ACT 2 puffs Inhalation Once a day for 90 days Dispense # 3 inhalers Active Symbicort 160-4.5 MCG/ACT 2 puffs Inhalation Twice a day for 90 days Rinse after use; Dispense # 3 inhalers Active Colchicine 0.6 MG 1 tablet Orally Active Social History Tobacco Use: Social History [...] Tobacco non-user Ex-light c igarette smoker (1-9/day) Problems Problem Type SNOMED Code ICD Code Onset Dates Problem Status W/U Status Risk Notes Problem 691984415 Obesity, unspecified (E66.9) Active confirmed Problem Uncomplicated severe persistent asthma (358154207) Severe persistent asthma, uncomplicated (J45.50) Active confirmed Prior inhalers: Breo - Laryngospasm (07/2018), Dulera - Laryngospasm (06/2018), Pulmicort - Ineffective Problem Long-term current use of inhaled steroid (904490632) retirement (current) use of inhaled steroids (Z79.51) Active confirmed Problem Obstructive sleep apnea (71059369) Obstructive sleep apnea (G47.33) Active confirmed Problem Ex-tobacco user (finding) (693709081) History of tobacco abuse (Z87.891) Active confirmed 1 pack/week x 20 years (<3 pack-years) Problem Allergic rhinitis caused by pollen (34158769) Seasonal allergic rhinitis due to pollen (J30.1) Active confirmed Problem Peripheral eosinophilia (D72.19) Active confirmed Vital Signs Heart Rate 69 /min 05/23/2024 Temperature 96.8 degrees Fahrenheit 05/23/2024 Respiratory Rate 18 /min 05/23/2024 Oximetry 94 % 05/23/2024 Blood pressure diastolic 81 mm Hg 05/23/2024 Height 69 in 05/23/2024 Blood pressure systolic 146 mm Hg 05/23/2024 Weight 237.0 lbs 05/23/2024 BMI 34.99 kg/m2 05/23/2024 Encounters Encounter Location Date Provider Diagnosis [facility] [address] [place] [address] 11/23/2023 Dandy Reich Severe persistent asthma, uncomplicated J45.50 ; Obstructive sleep apnea G47.33 ; Seasonal allergic rhinitis due to pollen J30.1 ; Peripheral eosinophilia D72.19 ; 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 controller (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) use of inhaled steroids Z79.51 ; History of tobacco abuse Z87.891 and Obesity, unspecified E66.9 [facility] [address] [place] [address] 05/23/2024 Dandy [facility] Severe persistent asthma, uncomplicated J45.50 ; Obstructive sleep apnea G47.33 ; Peripheral eosinophilia D72.19 ; 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 controller (current) use of inhaled steroids Z79.51 ; History of tobacco abuse Z87.891 and Obesity, unspecified E66.9 [facility] [address] [place] [address] 10/17/2023 Dandy [facility] [address] [place] [address] 07/23/2024 Dandy [facility] Severe persistent asthma, uncomplicated J45.50 Assessments Encounter [...] 11/23/2023 Obstructive sleep apnea (ICD-10 - G47.33) Tdyx-lh-hjfe encounter performed with the patient to document continued need for PAP therapy. -Split-night study: 02/17/2022 -Original AHI: 80; Initial AHI starting BiPAP : 15 -Compliance was reviewed from: 10/22/2023 - 11/20/2023 -Total days used: 30 (100%) -Total of all days >4 hours of use: 29/ (97%) -Current mode & pressures: AirCurve 10 VAuto - BiPAP / -Residual AHI: 1.5 -Air leak 95th%: 32.1L/min [...] caffeine is a diuretic. He voiced understanding.Uma gibson was encouraged to continue using the CPAP at bedtime and with naps. 05/23/2024 Severe persistent asthma, uncomplicated (ICD-10 - [...] 05/23/2024 Obstructive sleep apnea (ICD-10 - G47.33) Ehgw-cd-wlbw encounter performed with the patient to document continued need for PAP therapy. -Split-night study: 02/17/2022 -Original AHI: 80; Initial AHI starting BiPAP : 15 -Compliance was reviewed from: 04/18/2024 - 05/17/2024 -Total days used: 29/30 (97%) -Total of all days >4 hours of use: 28/30 (93%) -Current mode & pressures: AirCurve 10 VAuto - BiPAP -Residual AHI: 1 -Air leak (median): 6.7L/min [...] today. Continue PAP @ HS & naps. 07/23/2024 Severe persistent asthma, uncomplicated (ICD-10 - J45.50) Prior inhalers: Breo - Laryngospasm (07/2018), Dulera - Laryngospasm (06/2018), Pulmicort - Ineffective 05/23/2024 Peripheral eosinophilia (ICD-10 - D72.19) Continuing Fasenra. 11/23/2023 Seasonal allergic rhinitis due to pollen (ICD-10 - J30.1) No significant issues reported at this time. 11/23/2023 Peripheral eosinophilia (ICD-10 - D72.19) Continues to have marked improvement in asthma with Fasenra. 05/23/2024 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 controller (current) use of inhaled steroids (ICD-10 - Z79.51) Patient was counseled to rinse & gargle with water after inhaled corticosteroid use. 05/23/2024 History of tobacco abuse (ICD-10 - Z87.891) 1 pack/week x 20 years (<3 pack-years) This patient does not meet current LDCT criteria (e.g. age, time from cessation, # pack-years). 11/23/2023 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 controller (current) use of inhaled steroids (ICD-10 - Z79.51) Patient was counseled to rinse & gargle with water after inhaled corticosteroid use. 05/23/2024 Obesity, unspecified (ICD-10 - E66.9) Patient's weight is inducing a restrictive pulmonary physiology. Weight loss indicated: Decrease calories, increase activity. 11/23/2023 History of tobacco abuse (ICD-10 - Z87.891) 1 pack/week x 20 years (<3 pack-years) This patient does not meet current LDCT criteria (e.g. age, time from cessation, # pack-years). 11/23/2023 Obesity, unspecified (ICD-10 - E66.9) Patient's weight is inducing a restrictive pulmonary physiology. Weight loss indicated: Decrease calories, increase activity. Plan Of Treatment Next Appt Details Provider Name:Dandy Reich, 11/28/2024 02:30:00 PM, [address] [place], [address], Insurance Providers Payer Name Payer Address Payer Phone Subscriber Number Group Number Insured Name Patient Relationship to Insured Coverage Start Date Coverage End Date [employer] [place] [employer] [address] [place] [address] [phone] [id number] Edison Thompson Self - patient is the insured 3 Medications Administered Medication Instructions Date of Administration Dosage Notes Fasenra 07/22/2022 1 mg Medical (General) History Medical History History ICD Code Severe persistent asthma, uncomplicated J45.50 Peripheral eosinophilia D72.19 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 controller (current) use of inhaled stero ids Z79.51 Seasonal allergic rhinitis due to pollen J30.1 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
[2024-09-04 09:58] VITALS: BP 180/100
--- NOTE | 2024-09-04 10:02 | ED.GENADUL1 ---
HPI HPI - General Adult General Chief complaint: Dental/Oral Stated complaint: DENTAL PAIN Time Seen by Provider: 09/04/24 09:49 Source: patient Mode of arrival: walk-in Limitations: no limitations History of Present Illness HPI narrative: 49-year-old male presenting for toothache. He is complaining of pain to his right lower jaw, anteriorly. He knows he has a bad tooth but does not have a dentist. His blood pressure was noted to be elevated at triage and he took his blood pressure medication but he states he is having a lot of pain and he just came from his mental health counseling session. No difficulty breathing or swallowing. Related Data Home Medications ?Medication ?Instructions ?Recorded ?Confirmed albuterol sulfate 90 mcg/actuation 1 puff inhalation Q4H PRN 11/03/23 09/04/24 aerosol inhaler shortness of breath or wheezing allopurinol 100 mg tablet 100 mg PO DAILY 11/03/23 09/04/24 benralizumab 30 mg/mL subcutaneous 30 mg subcut Q28D 11/03/23 09/04/24 auto-injector (Fasenra Pen) budesonide-formoterol HFA 160 1 puff inhalation Q12H 11/03/23 09/04/24 mcg-4.5 mcg/actuation aerosol inhaler (Symbicort) buspirone 15 mg tablet 15 mg PO BID 11/03/23 09/04/24 fluticasone propionate 50 1 spray intranasal Q12H PRN 11/03/23 09/04/24 mcg/actuation nasal allergy symptoms spray,suspension hydrochlorothiazide 25 mg tablet 25 mg PO DAILY 11/03/23 09/04/24 lamotrigine 100 mg tablet 100 mg PO BEDTIME 11/03/23 09/04/24 levothyroxine 100 mcg tablet 100 mcg PO DAILY 11/03/23 09/04/24 levothyroxine 75 mcg tablet 75 mcg PO DAILY 11/03/23 09/04/24 losartan 100 mg tablet 100 mg PO DAILY 11/03/23 09/04/24 metoprolol succinate 25 mg 25 mg PO DAILY 11/03/23 09/04/24 tablet,extended release 24 hr montelukast 10 mg tablet 10 mg PO DAILY 11/03/23 09/04/24 omeprazole 40 mg capsule,delayed 40 mg PO DAILY 11/03/23 09/04/24 release testosterone cypionate 200 mg/mL 200 mg IM .Q14DAY 11/03/23 09/04/24 intramuscular oil tiotropium bromide 1.25 2 puff inhalation Q24H 11/03/23 09/04/24 mcg/actuation mist for inhalation (Spiriva Respimat) amlodipine 10 mg tablet 10 mg PO DAILY 09/04/24 09/04/24 phentermine 37.5 mg tablet 37.5 mg PO DAILY 09/04/24 09/04/24 (Adipex-P) Previous Rx's ?Medication ?Instructions ?Recorded acetaminophen 300 mg-codeine 30 mg 1 tab PO Q6H PRN pain 5 days #20 09/04/24 tablet tabs ibuprofen 800 mg tablet 800 mg PO Q8H PRN pain #20 tabs 09/04/24 penicillin V potassium 250 mg 250 mg PO QID 10 days #40 tabs 09/04/24 tablet Allergies Allergy/AdvReac Type Severity Reaction Status Date / Time Sulfa (Sulfonamide Allergy Intermediate Hives Verified 09/04/24 09:49 Antibiotics) Opioid HPI Opioid Management Most Recent Opioid Data: Last Pain Scale 5 Today, 09:49 Review of Systems ROS Narrative A ten point review of systems is negative except as noted above. PFSH PFSH Social History Little interest or pleasure in doing things: not at all Feeling down, depressed, or hopeless: not at all Exam Narrative Exam Narrative: Nurses note and vital signs reviewed and patient is not hypoxic. General: The patient appears well and in no apparent distress. Patient is resting comfortably on cart. Skin: Warm, dry, no pallor noted. There is no rash noted. Head: Normocephalic, atraumatic Eye: Normal conjunctiva, no drainage Ears, Nose, Mouth, and Throat: oral mucosa is moist. Nares patent. No facial swelling or erythema. He has obvious dental caries with the tooth in question and being in the right lower jaw anteriorly. It is eroded down to the gum level. No bleeding or pus present. No swelling to the floor of his mouth. Cardiovascular: Regular Rate and Rhythm Respiratory: Patient is in no distress, no accessory muscle use, lungs are clear to auscultation, no wheezing, rales or rhonchi Back: non-tender GI: Soft and nontender Musculoskeletal: The patient has no evidence of calf tenderness, no pitting edema, symmetrical pulses noted bilaterally Neurological: A&O, normal speech Psychiatric: Cooperative Constitutional Vital Signs, click to edit/add: Last Vital Signs Temp 98.2 F 09/04/24 09:49 Pulse 92 H 09/04/24 09:49 Resp 15 09/04/24 09:49 BP 180/100 H 09/04/24 09:58 Pulse Ox 95 09/04/24 09:49 O2 Del Method Room Air 09/04/24 09:49 Course Vital Signs Vital signs: Vital Signs Temperature 98.2 F 09/04/24 09:49 Pulse Rate 92 H 09/04/24 09:49 Respiratory Rate 15 09/04/24 09:49 Blood Pressure 180/123 H 09/04/24 09:49 Pulse Oximetry 95 09/04/24 09:49 Oxygen Delivery Method Room Air 09/04/24 09:49 Temperature 98.2 F 09/04/24 09:49 Pulse Rate 92 H 09/04/24 09:49 Respiratory Rate 15 09/04/24 09:49 Blood Pressure 180/100 H 09/04/24 09:58 Pulse Oximetry 95 09/04/24 09:49 Oxygen Delivery Method Room Air 09/04/24 09:49 Medical Decision Making MDM Narrative Medical decision making narrative: He was given IM Toradol and prescribed Tylenol 3, ibuprofen, and penicillin. Follow-up with dentistry, list provided. Treatment diagnosis and follow-up were discussed with the patient. Differential Diagnosis Differential Diagnosis: Dental caries, dental abscess Discharge Plan Discharge Chief Complaint: Dental/Oral Clinical Impression: Dental caries Patient Disposition: Home, Self-Care Time of Disposition Decision: 09:59 Condition: Good Mode of Transportation: Private Vehicle Prescriptions / Home Meds: New acetaminophen-codeine 300-30 mg tablet 1 tab PO Q6H PRN (Reason: pain) 5 Days Qty: 20 0RF penicillin V potassium 250 mg tablet 250 mg PO QID 10 Days Qty: 40 0RF ibuprofen 800 mg tablet 800 mg PO Q8H PRN (Reason: pain) Qty: 20 0RF No Action allopurinol 100 mg tablet 100 mg PO DAILY omeprazole 40 mg capsule,delayed release(DR/EC) 40 mg PO DAILY levothyroxine 75 mcg tablet 75 mcg PO DAILY levothyroxine 100 mcg tablet 100 mcg PO DAILY montelukast 10 mg tablet 10 mg PO DAILY hydrochlorothiazide 25 mg tablet 25 mg PO DAILY metoprolol succinate 25 mg tablet extended release 24 hr 25 mg PO DAILY testosterone cypionate 200 mg/mL oil 200 mg IM .Q14DAY albuterol sulfate 90 mcg/actuation HFA aerosol inhaler 1 puff INHALATION Q4H PRN (Reason: shortness of breath or wheezing) losartan 100 mg tablet 100 mg PO DAILY fluticasone propionate 50 mcg/actuation spray,suspension 1 spray INTRANASAL Q12H PRN (Reason: allergy symptoms) lamotrigine 100 mg tablet 100 mg PO BEDTIME buspirone 15 mg tablet 15 mg PO BID budesonide-formoterol [Symbicort] 160-4.5 mcg/actuation HFA aerosol inhaler 1 puff INHALATION Q12H Spiriva Respimat 1.25 mcg/actuation mist 2 puff INHALATION Q24H Fasenra Pen 30 mg/mL auto-injector 30 mg SUBCUT Q28D phentermine [Adipex-P] 37.5 mg tablet 37.5 mg PO DAILY Rx Instructions: must administer 30 minutes before or 1-2 hours after breakfast amlodipine 10 mg tablet 10 mg PO DAILY Print Language: Mauritanian Instructions: Toothache (ED) Additional Instructions: Up with history, list provided Referrals: Physician,Non-Staff, MD [Primary Care Provider] - 1 week
[2024-09-04] MEDS: KETOROLAC TROMETHAMINE 60 MG/2 ML VIAL IM (10:09)
[2024-09-04 10:13] VITALS: BP 170/98
== END 2024-09-04 10:15 | disposition home or self-care (01) ==
PROVIDERS: Emergency Provider Emergency Medicine
DX: K02.9 Dental caries, unspecified (principal); K08.89 Other specified disorders of teeth and supporting structures
CPT/HCPCS: 96372; 99284; J1885